=== PATIENT | female | born 1985 | race Caucasian/White ===

== ENCOUNTER 2018-07-29 14:53 | Emergency (ER) | payer MEDICAID, SELFPAY ==
[2018-07-29 14:54] VITALS: BP 132/94; PULSE 92; RESP 22; TEMP 37.1; O2SAT 100; BMI 34.7
--- NOTE | 2018-07-29 15:05 | EKG12_ITS ---
Test Reason : Blood Pressure : / mmHG Vent. Rate : 074 BPM Atrial Rate : 074 BPM P-R Int : 128 ms QRS Dur : 086 ms QT Int : 394 ms P-R-T Axes : 039 056 012 degrees QTc Int : 437 ms Normal sinus rhythm Normal ECG Confirmed by EMIL TIPTON ([id number]), manager editorial LIZ AVILES ([id number]) on 08/03/2018 8:44:51 AM Referred By: MILO Confirmed By:EMIL TIPTON
[2018-07-29 15:31] LABS: Absolute Lymphocyte Count 3.36 X10^3/ul (0.83-4.51); Absolute Neutrophil Count 6.6 X10^3/uL (2.0-7.7); Basophil# 0.04 X10^3/uL; Basophil% 0.4 % (0-1); Eosinophil# 0.22 X10^3/uL; Hematocrit 42.3 % (37-47); Hemoglobin 14.4 g/dl (12.0-15.0); Lymphocyte # 3.36 X10^3/ul (4.0); Lymphocyte % 30.1 % (19-41); Mean Corpuscular Hgb 30.4 pg (27.0-32.0); Mean Corpuscular Volume 89.4 fL (81-99); Mean Platelet Vol. 10.7 fl (6.2-12.0); Monocyte% 8.1 % (0-10); Neutrophil # 6.61 X10^3/uL (2.7-7.7); Platelet Count 246 K/mm3 (150-450); RBC Distribution Width CV 13.6 % (11.6-14.6); Red Blood Count 4.73 M/mm3 (4.2-5.4); White Blood Count 11.2 K/mm3 (4.4-11.0)
[2018-07-29 15:32] LABS: POSITIVE COUNT NO; POSITIVE DIFFERENTIAL NO; POSITIVE MORPHOLOGY NO
[2018-07-29 15:44] LABS: Anion Gap 6 (5-15); BUN 10 mg/dL (7-18); BUN/Creat Ratio 11.1 RATIO (10-20); Calcium,Total 9.1 mg/dL (8.5-10.1); Chloride 106 mmol/L (98-107); EST Glomerular Filtration Rate 77 mL/min (>60); Est Glom Filt Rate - Afr Amer 93 mL/min (>60); Estimated Creatinine Clearance 86.46 ml/min; Glucose 91 mg/dL (74-106); Potassium 3.9 mmol/L (3.5-5.1); Sodium Level 138 mmol/L (136-145)
--- NOTE | 2018-07-29 15:54 | RAD_ITS ---
STUDY: X-RAY CHEST REASON FOR EXAM: Female, 33 years old. Chest pain. TECHNIQUE: Portable chest. COMPARISON: 03/16/2014. FINDINGS: The lungs are clear and expanded. There is no demonstrated pleural abnormality. Normal size heart. Normal mediastinum and tim. Normal visualized pulmonary arteries. Normal visualized aortic arch and descending thoracic aorta. Normal visualized thoracic spine. Normal visualized ribs, clavicles, and shoulders. There is no demonstrated abnormality of the visualized soft tissue structures of the upper abdomen. RAD/Chest 1 View (Portable) IMPRESSION: Normal x-ray examination of the chest. Electronically Signed: Bella Hoyt MD at 16:25 EDT Tel , Service support ,
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
[2018-07-29 16:11] VITALS: O2SAT 100
[2018-07-29 16:14] VITALS: BP 130/76; PULSE 66; RESP 12; O2SAT 100
[2018-07-29 17:09] LABS: D-Dimer Quantitative (DVT/PE) < 0.27 FEU/ug/m (0.27-0.49)
[2018-07-29] MEDS: Aspirin 325 MG Tablet PO (17:24)
[2018-07-29] MEDS: Morphine 4 MG/ML Syringe IV (17:24)
[2018-07-29] MEDS: Ondansetron 4 MG/2 ML Vial IV (17:24)
[2018-07-29 17:54] LABS: Erythrocyte Sedimentation Rate 14 mm/hr (0-20)
--- NOTE | 2018-07-29 18:17 | ED.DEP ---
ED Disposition - Plan for ED Patient: Chief Complaint: Chest Pain Instructions: ED Chest Pain Atypical Unkn Cause Prescriptions: Naproxen [Naprosyn] 500 mg PO BID PRN #20 tablet Referrals: Ty Rocha MD [Primary Care Provider] -
[2018-07-29 18:29] VITALS: BP 122/63; PULSE 76; RESP 15; O2SAT 98
== END 2018-07-29 18:36 | disposition home or self-care (01) ==
PROVIDERS: Emergency Provider Emergency Medicine; Family Provider Internal Medicine; PCP Internal Medicine
DX: R07.89 Other chest pain (principal); R06.00 Dyspnea, unspecified; R11.0 Nausea; R42 Dizziness and giddiness; R00.2 Palpitations; F31.9 Bipolar disorder, unspecified; Z86.718 Personal history of other venous thrombosis and embolism; F17.200 Nicotine dependence, unspecified, uncomplicated
CPT/HCPCS: 71045; 80048; 84484; 85025; 85379; 85652; 93005; 96374; 96375; 99285; A4216; J2405

== ENCOUNTER 2019-04-29 21:49 | Emergency (ER) | payer MEDICAID, SELFPAY ==
[2019-04-29 21:49] VITALS: BP 143/75; PULSE 75; RESP 15; TEMP 36.7; BMI 34.0
--- NOTE | 2019-04-29 22:03 | ED.VISSUMM ---
- ER Visit Summary Date of Service: 04/29/19 Chief Complaint: Abdominal pain History of Present Illness: The patient is a 33 F who presents with abdominal pain. She has had this for a couple of days. She describes cramping and sharp pains in her epigastric and left upper quadrant areas. She states that food makes it worse. She has had nausea without vomiting. No diarrhea or constipation denies any urinary or vaginal symptoms. She has never had any abdominal surgeries in the past. Denies fevers. She took nothing for this at home. Physical Examination: Vital signs reviewed. HEENT exam unremarkable. Heart is regular rate and rhythm without murmurs. Lungs are clear to auscultation. Abdomen is soft with epigastric tenderness to palpation. There is no guarding or rebound tenderness. Extremities reveal no edema. Skin exam normal. Neurologic exam normal. Test Results: Laboratory studies are normal, except for white blood count of 1.5 and AST of 14 Emergency Department Course and Treatment: Patient was given a GI cocktail and feels much better. This is likely gastritis or an ulcer. I will add omeprazole to her medication regimen at home. She will follow-up with her PCP Treatment Plan: [] Disposition: Discharge Impression: Epigastric abdominal pain This note was generated with [employer] dictation software. It may contain incorrect words, spelling, and punctuation that were not noted in review of the chart prior to signing ED Disposition - Plan for ED Patient: Referrals: Ty Rocha MD [Primary Care Provider] -
[2019-04-29] MEDS: Mag Hydrox/Al Hydrox/Simeth 30 ML UDC PO (22:13)
[2019-04-29 22:23] LABS: Absolute Lymphocyte Count 3.63 X10^3/uL (0.83-4.51); Absolute Neutrophil Count 6.6 X10^3/uL (2.0-7.7); Basophil# 0.06 X10^3/uL; Basophil% 0.5 % (0-1); Eosinophil# 0.25 X10^3/uL; Eosinophils% 2.2 % (0-5); Hematocrit 39.8 % (37-47); Hemoglobin 13.6 g/dL (12.0-15.0); Lymphocyte # 3.63 X10^3/ul (4.0); Lymphocyte % 31.6 % (19-41); Mean Corp Hgb Conc 34.2 g/dL (32-36); Mean Corpuscular Hgb 30.6 pg (27.0-32.0); Mean Corpuscular Volume 89.4 fL (81-99); Mean Platelet Vol. 9.8 fl (6.2-12.0); Monocyte# 0.88 X10^3/uL; Monocyte% 7.7 % (0-10); NRBC Flagged by Analyzer 0 % (0-5); Neutrophil # 6.59 X10^3/uL (2.7-7.7); Neutrophil % 57.4 % (47-70); Platelet Count 232 K/mm3 (150-450); RBC Distribution Width CV 13.5 % (11.6-14.6); RBC Distribution Width SD 44.2 fl (35.1-43.9); Red Blood Count 4.45 M/mm3 (4.2-5.4); White Blood Count 11.5 K/mm3 (4.4-11.0)
[2019-04-29 22:39] LABS: ALB/GLOB Ratio 1.1 RATIO (0.9-2.4); AST(SGOT) 14 U/L (15-37); Alanine Aminotransfer ALT/SGPT 23 U/L (13-56); Albumin, Serum 3.3 g/dL (3.2-5.0); Alkaline Phosphatase 96 U/L (45-117); Anion Gap 5 (5-15); BUN 12 mg/dL (7-18); BUN/Creat Ratio 12.2 RATIO (10-20); Calcium,Total 8.8 mg/dL (8.5-10.1); Chloride 107 mmol/L (98-107); Creatinine, Serum 0.98 mg/dL (0.55-1.02); EST Glomerular Filtration Rate 69 mL/min (>60); Est Glom Filt Rate - Afr Amer 84 mL/min (>60); Glucose 99 mg/dL (74-106); Lipase 111 U/L (73-393); Potassium 3.7 mmol/L (3.5-5.1); Protein, Total 6.3 g/dL (6.4-8.2); Sodium Level 139 mmol/L (136-145)
--- NOTE | 2019-04-29 22:53 | ED.DEP ---
ED Disposition - Plan for ED Patient: Disposition: Home or Assisted Living Instructions: Peptic Ulcer Prescriptions: Omeprazole [Prilosec] 20 mg PO DAILY #30 cap Prescription Printed Referrals: Ty Rocha MD [Primary Care Provider] -
[2019-04-29 22:59] VITALS: BP 121/74; PULSE 82; RESP 16; O2SAT 100
--- NOTE | 2019-04-29 22:59 | ED.RN ---
THIS NURSE REVIEWED D/C INSTRUCTIONS WITH PT. PT VERBALIZED UNDERSTANDING OF INSTRUCTIONS. IV D/C. IV CATHETER INTACT. PT TOLERATED WELL. PT DENIES FURTHER NEEDS OR QUESTIONS AT THIS TIME. PT AMBULATES FROM ROOM ON OWN WITHOUT ASSISTANCE FROM STAFF
== END 2019-04-29 23:00 | disposition home or self-care (01) ==
PROVIDERS: Emergency Provider Emergency Medicine; Family Provider Internal Medicine; PCP Internal Medicine
DX: R10.13 Epigastric pain (principal); R11.0 Nausea; Z72.0 Tobacco use
CPT/HCPCS: 80053; 83690; 85025; 99284; A4216

== ENCOUNTER → 2019-08-29 15:48 | Outpatient (CLI) | payer MEDICAID, SELFPAY | PROVIDERS: Visit Provider Obstetrics & Gynecology | DX: Z12.4 Encounter for screening for malignant neoplasm of cervix (principal) ==

== ENCOUNTER → 2020-07-23 10:59 | Outpatient (CLI) | payer MEDICAID, SELFPAY ==
--- NOTE | 2020-07-23 11:05 | RAD_ITS ---
HISTORY: neck pain, cervical radiopathy COMPARISON: None FINDINGS: # of images incl. paperwork: 6 XR Spine Cervical 4 or 5 Views: 3 views of the cervical spine were obtained. All 7 cervical vertebral bodies are identified. No acute cervical spine fracture or subluxation. Normal cervical spine alignment. Odontoid is intact. No significant degenerative change. RAD/Cerv Spine 4 or 5 Views IMPRESSION: No acute cervical spine fracture or subluxation. at 0418 Reported and signed by: Chino Hernandez MD Electronically Signed: Chino Hernandez MD at 4:17 EDT Tel , Service support ,
== END ==
PROVIDERS: Referring Provider Chiropractor; Visit Provider Chiropractor
DX: M54.12 Radiculopathy, cervical region (principal)
CPT/HCPCS: 72050

== ENCOUNTER 2021-06-03 19:14 | Emergency (ER) | payer MEDICAID, SELFPAY ==
[2021-06-03 19:14] VITALS: BP 167/91; PULSE 109; RESP 18; TEMP 36.4; O2SAT 100; BMI 37.5
--- NOTE | 2021-06-03 19:30 | RAD_ITS ---
STUDY: X-RAY CHEST REASON FOR EXAM: Female, 36 years old. SOB TECHNIQUE: Frontal view COMPARISON: None. FINDINGS: The lungs are clear and expanded. There is no demonstrated pleural abnormality. Normal size heart. Normal mediastinum and tim. Normal visualized pulmonary arteries. Normal visualized aortic arch and descending thoracic aorta. Normal visualized thoracic spine. Normal visualized ribs, clavicles, and shoulders. There is no demonstrated abnormality of the visualized soft tissue structures of the upper abdomen. RAD/Chest 1 View IMPRESSION: Normal x-ray examination of the chest. Electronically Signed: Arturo Moran DO at 20:25 EDT Tel [phone], Service support ,
[2021-06-03 21:00] VITALS: BP 128/72; PULSE 81; RESP 14; O2SAT 97; O2SAT 98
--- NOTE | 2021-06-03 21:28 | EKG12_ITS ---
Test Reason : DYSRHYTHMIA Blood Pressure : / mmHG Vent. Rate : 075 BPM Atrial Rate : 075 BPM P-R Int : 132 ms QRS Dur : 084 ms QT Int : 390 ms P-R-T Axes : 034 069 027 degrees QTc Int : 435 ms Normal sinus rhythm Normal ECG Confirmed by HANNAH CHAVEZ, ANGLE ([id number]), story editor YANELI ECHEVARRIA ([id number]) on 06/05/2021 9:49:30 AM Referred By: HALIMA Confirmed By:ANGLE YOUNG MD
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
[2021-06-03 21:47] LABS: Absolute Lymphocyte Count 2.55 X10^3/uL (0.83-4.51); Absolute Neutrophil Count 3.7 X10^3/uL (2.0-7.7); Basophil# 0.04 X10^3/uL; Basophil% 0.6 % (0-1); Eosinophil# 0.12 X10^3/uL; Eosinophils% 1.7 % (0-5); Hematocrit 45.1 % (37-47); Hemoglobin 14.7 g/dL (12.0-15.0); Lymphocyte # 2.55 X10^3/ul (0.83-4.51); Lymphocyte % 36.1 % (19-41); Mean Corp Hgb Conc 32.6 g/dL (32-36); Mean Corpuscular Hgb 29.5 pg (27.0-32.0); Mean Corpuscular Volume 90.4 fL (81-99); Mean Platelet Vol. 9.9 fl (6.2-12.0); Monocyte# 0.61 X10^3/uL; Monocyte% 8.6 % (0-10); NRBC Flagged by Analyzer 0 % (0-5); Neutrophil # 3.72 X10^3/uL (2.7-7.7); Neutrophil % 52.7 % (47-70); Platelet Count 238 K/mm3 (150-450); RBC Distribution Width CV 13.8 % (11.6-14.6); RBC Distribution Width SD 46.2 fl (35.1-43.9); Red Blood Count 4.99 M/mm3 (4.2-5.4); White Blood Count 7.1 K/mm3 (4.4-11.0)
[2021-06-03 21:49] VITALS: O2SAT 97
[2021-06-03 22:05] LABS: AST(SGOT) 18 U/L (15-37); Alanine Aminotransfer ALT/SGPT 25 U/L (13-56); Albumin, Serum 3.5 g/dL (3.2-5.0); Alkaline Phosphatase 88 U/L (45-117); Anion Gap 3 (5-15); BUN 13 mg/dL (7-18); BUN/Creat Ratio 13.7 RATIO (10-20); Calcium,Total 8.7 mg/dL (8.5-10.1); Chloride 109 mmol/L (98-107); Creatinine, Serum 0.95 mg/dL (0.55-1.02); EST Glomerular Filtration Rate 71 mL/min (>60); Est Glom Filt Rate - Afr Amer 86 mL/min (>60); Estimated Creatinine Clearance 79.61 ml/min; Globulin 3.6 g/dL (2.2-4.2); Glucose 105 mg/dL (74-106); Potassium 3.9 mmol/L (3.5-5.1); Protein, Total 7.1 g/dL (6.4-8.2); Sodium Level 139 mmol/L (136-145); Troponin-I HS 7 pg/mL (3.0-54.0)
--- NOTE | 2021-06-03 22:15 | CT_ITS ---
STUDY: CTA CHEST REASON FOR EXAM: Female, 36 years old. Chest pain RADIATION DOSAGE (If Supplied By Facility): CTDIvol = ( 12.66 ) mGy, DLP = ( 551.33 ) mGycm TECHNIQUE: The examination was performed with the intravenous administration of IV 100mL Isovue-300. Post-processing of the angiographic images was performed, with multiplanar reformation and 3D reconstruction. Individualized dose optimization techniques were used for this CT. COMPARISON: None. FINDINGS: Normal enhancement of the main pulmonary artery and right and left pulmonary arteries. Normal enhancement of the bilateral peripheral pulmonary arteries. There is no demonstrated pulmonary embolism. Normal thoracic aorta and visualized great vessels. There is no demonstrated aortic dissection. Normal heart and pericardium. Normal mediastinum. Normal hilar regions. Normal visualized trachea and bronchi. The lungs are well expanded. Normal pulmonary parenchyma. Normal pleura. Normal chest wall structures. Normal osseous structures. Small hiatal hernia. CT/CTA Chest W/WO Contrast IMPRESSION: No demonstrated pulmonary embolism or arterial dissection. Small hiatal hernia Electronically Signed: Arturo Moran DO at 23:41 EDT Tel [phone], Service support ,
[2021-06-03 23:41] VITALS: BP 131/69; PULSE 77; RESP 18; TEMP 36.6; O2SAT 100
[2021-06-03 23:57] VITALS: BP 131/69; PULSE 74; RESP 17; O2SAT 98
== END 2021-06-03 23:58 | disposition home or self-care (01) ==
PROVIDERS: Emergency Provider Student in an Organized Health Care Education/Training Program
DX: U07.1 COVID-19 (principal); R07.89 Other chest pain; F17.210 Nicotine dependence, cigarettes, uncomplicated
CPT/HCPCS: 71045; 71275; 80053; 84484; 85025; 85379; 93005; 99285; Q9967

== ENCOUNTER → 2021-07-15 11:22 | Outpatient (CLI) | payer MEDICAID, SELFPAY ==
[2021-07-15 13:17] LABS: HIV - WCH Non-Reactive (Nonreactive); Hepatitis B Surface Antigen Non-Reactive (Nonreactive); Hepatitis C Antibody Non-Reactive (Nonreactive); Syphilis Antibodies Non-reactive
[2021-07-16 22:07] LABS: Chlamydia By Nucleic Acid AMP Negative (Negative)
[2021-07-17 12:32] LABS: Gonococcus By Nucleic Acid AMP Negative (Negative)
[2021-07-18 16:34] LABS: HPV APTIMA, High Risk Negative (Negative)
== END ==
PROVIDERS: Visit Provider Obstetrics & Gynecology
DX: Z12.4 Encounter for screening for malignant neoplasm of cervix (principal); Z11.3 Encounter for screening for infections with a predominantly sexual mode of transmission
CPT/HCPCS: 36415; 86703; 86780; 86803; 87340; 87491; 87591; 87624; 88175; G0145

== ENCOUNTER 2022-02-22 22:41 | Emergency (ER) | payer MEDICAID, SELFPAY ==
[2022-02-22 22:42] VITALS: BP 127/79; PULSE 79; RESP 14; TEMP 36.3; O2SAT 98; BMI 38.7
--- NOTE | 2022-02-22 23:20 | EX.ED.VIS.EY ---
HPI History of Present Illness Chief Complaint: Eye Problem Informant: patient Onset/Context/Timing Location: Right Eye Onset: Hours (2) Context: Gradual Onset Timing: Continuous Worsened by: Blinking Relieved by: Nothing Associated Symptoms Associated Symptoms - Eyes: Drainage (Watery), Pain and Redness; Negative for Burning, Crusting, Eyelid swelling, Foreign body sensation, Itching, Matting and Photophobia History of injury: No Visual correction: None Narrative Narrative: Patient presents with redness to her right eye that began approximate 2 hours prior to arrival. Patient states her pain is worse with blinking. Patient denies any foreign body sensation. Patient denies any trauma or injury. Patient denies any matting or crusting. Patient denies any purulent discharge or drainage. Patient does not wear glasses or contacts. Patient denies any visual changes. Patient denies any sick contacts. PFSH PFS Medical History Herniated disc Smoker Home Medications NK 06/03/21 [History Last Taken Unknown] Allergy/AdvReac Type Severity Reaction Status Date / Time No Known Allergies Allergy Verified 02/22/22 22:42 Surgical History History of dilatation and curettage History of discectomy Social History Smoking Status: Current every day smoker tobacco type: cigarettes ROS ROS ED Constitutional Constitutional ED: Denies chills or fever(s) Eyes Eyes: Denies blurry vision or change in vision ENT ENT ED: Denies rhinorrhea or sore throat Cardiovascular Cardiovascular: Denies chest pain or palpitations Respiratory/Chest Respiratory/Chest: Denies cough or dyspnea Gastrointestinal Gastrointestinal: Denies nausea or vomiting Genitourinary Genitourinary ED: Denies dysuria or hematuria Musculoskeletal Musculoskeletal: Denies back pain or neck pain Integumentary Denies abscess or rash Neurologic Neurologic: Denies headache(s) or weakness Allergic/Immunologic Allergic/Immunologic ED: Denies mouth swelling or urticaria EXAM Physical Exam Const Vital Signs: 02/22/22 22:42 Temperature 97.4 F L Temperature Source Temporal Pulse Rate 79 Respiratory Rate 14 Blood Pressure 127/79 H Blood Pressure Mean 95 Pulse Ox 98 Oxygen Delivery Method Room Air Positive well nourished, well developed and obese General Appearance ED: well developed and NAD Nutritional Appearance: obese HEENT atraumatic Eyes Alignment: alignment normal Periorbital: periorbital findings normal Eyelid: eyelids normal Conjunctiva: conjunctiva abnormal right injection diffuse (Mild) Sclera: sclera normal Cornea: cornea normal Pupil: PERRL and accommodation reflex normal EOM: Negative for EOM abnormal Neck supple and no JVD Neuro oriented x3, CN's II-XII intact bilaterally, moves all extremities and no sensory deficits noted Sensorium / Orientation: alert Motor Exam: strength 5/5 throughout MDM MDM MDM Narrative Medical decision making narrative: Patient does appear to have conjunctivitis. Patient was given ciprofloxacin ophthalmic drops. Patient was instructed to apply 2 drops in the right eye every 2 hours while awake. Patient was instructed to follow-up with her primary care physician in 3 to 5 days. Patient understood and was agreeable with the plan. All questions were answered. Discharge Plan Triage Chief Complaint: Eye Problem ED Provider: Wan Jung Dx/Rx/DC Orders Clinical Impression: Acute conjunctivitis, right eye Instructions: ED Conjunctivitis, Nonspecific Prescriptions: No Action NK RF: 0 Primary Care Provider: Care Physician,No Primary Referrals: Mehran Guerra MD [STAFF PHYSICIAN] - 3-5 Days Care Physician,No Primary [Primary Care Provider] - Disposition Disposition: Home, Self Care
[2022-02-22] MEDS: Ciprofloxacin 0.3% 2.5ml Bottle 1 DRP RIGHT EYE (23:51)
== END 2022-02-22 23:53 | disposition home or self-care (01) ==
PROVIDERS: Emergency Provider Emergency Medicine; Visit Provider Emergency Medicine
DX: H10.31 Unspecified acute conjunctivitis, right eye (principal); F17.210 Nicotine dependence, cigarettes, uncomplicated; E66.9 Obesity, unspecified; Z68.38 Body mass index [BMI] 38.0-38.9, adult
CPT/HCPCS: 99282

== ENCOUNTER 2022-05-05 19:04 | Emergency (ER) | payer MEDICAID, SELFPAY ==
[2022-05-05 19:05] VITALS: BP 183/168; PULSE 86; RESP 16; TEMP 36.6; O2SAT 97; BMI 38.0
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
[2022-05-05 20:37] LABS: Absolute Lymphocyte Count 4.01 X10^3/uL (0.83-4.51); Absolute Neutrophil Count 9.3 X10^3/uL (2.0-7.7); Basophil# 0.09 X10^3/uL; Basophil% 0.6 % (0-1); Eosinophil# 0.17 X10^3/uL; Eosinophils% 1.2 % (0-5); Hematocrit 42.1 % (37-47); Hemoglobin 14.1 g/dL (12.0-15.0); Lymphocyte # 4.01 X10^3/ul (0.83-4.51); Lymphocyte % 27.2 % (19-41); Mean Corp Hgb Conc 33.5 g/dL (32-36); Mean Corpuscular Hgb 29.6 pg (27.0-32.0); Mean Corpuscular Volume 88.4 fL (81-99); Mean Platelet Vol. 10.1 fl (6.2-12.0); Monocyte# 1.05 X10^3/uL; Monocyte% 7.1 % (0-10); NRBC Flagged by Analyzer 0 % (0-5); Neutrophil # 9.33 X10^3/uL (2.7-7.7); Neutrophil % 63.4 % (47-70); Platelet Count 277 K/mm3 (150-450); RBC Distribution Width CV 14.6 % (11.6-14.6); RBC Distribution Width SD 46.5 fl (35.1-43.9); Red Blood Count 4.76 M/mm3 (4.2-5.4); White Blood Count 14.7 K/mm3 (4.4-11.0)
[2022-05-05 20:50] LABS: Anion Gap 5 (5-15); BUN 13 mg/dL (7-18); BUN/Creat Ratio 12.4 RATIO (10-20); Chloride 112 mmol/L (98-107); Creatinine, Serum 1.05 mg/dL (0.55-1.02); EST Glomerular Filtration Rate 63 mL/min (>60); Est Glom Filt Rate - Afr Amer 76 mL/min (>60); Estimated Creatinine Clearance 72.03 ml/min; Glucose 100 mg/dL (74-106); Sodium Level 140 mmol/L (136-145)
[2022-05-05 21:27] LABS: Internal QC Validated? YES +Cl - CLEAR BKGD; Pregnancy, Serum, hCG Quali. NEGATIVE Negative
[2022-05-05] MEDS: Meclizine HCl 25 MG Tablet PO (22:12)
[2022-05-05 22:13] VITALS: BP 140/83; PULSE 101; RESP 22; O2SAT 97
== END 2022-05-05 22:17 | disposition home or self-care (01) ==
PROVIDERS: Emergency Provider Emergency Medicine; PCP Internal Medicine; Visit Provider Emergency Medicine
DX: S06.0X9A Concussion with loss of consciousness of unspecified duration, initial encounter (principal); F17.210 Nicotine dependence, cigarettes, uncomplicated; E66.9 Obesity, unspecified; T71.193A Asphyxiation due to mechanical threat to breathing due to other causes, assault, initial encounter; Y04.0XXA Assault by unarmed brawl or fight, initial encounter; Z68.38 Body mass index [BMI] 38.0-38.9, adult
CPT/HCPCS: 70496; 70498; 80048; 84703; 85025; 99284; Q9967; A4216

== ENCOUNTER 2022-08-28 17:45 | Emergency (ER) | payer MEDICAID, SELFPAY ==
[2022-08-28 17:46] VITALS: BP 160/92; PULSE 91; RESP 15; TEMP 36.4; O2SAT 97; BMI 39.1
--- NOTE | 2022-08-28 18:08 | ED.VIS.DENTA ---
HPI History of Present Illness Chief Complaint: Dental Narrative Narrative: . [id number] female, smoker, presents with 3 weeks of left lower jaw dental pain patient been on clindamycin. She went and saw her dentist but she was in the patient so they would not give her antibiotics. She has a follow-up appointment on September 08. She went to urgent care where she was placed on clindamycin and has been taking it for 3 weeks. She also takes naproxen. She states that she is having continued dental pain. She continues to smoke cigarettes. She denies any fevers or chills. She feels her jaw swollen and painful. Its mainly her left lower jaw. PFSH PFSH Medical History Herniated disc Smoker Home Medications meclizine 25 mg chewable tablet (Antivert) 25 mg PO TID #14 tabs 05/05/22 [Rx Last Taken Unknown] penicillin V potassium 500 mg tablet 500 mg PO 4X/DAY #40 tabs 08/28/22 [Rx Last Taken Unknown] Allergy/AdvReac Type Severity Reaction Status Date / Time No Known Allergies Allergy Verified 08/28/22 17:48 Surgical History History of dilatation and curettage History of discectomy Social History household members: none Smoking Status: Current every day smoker tobacco type: cigarettes substance use type: does not use ROS ROS ED ROS Narrative Constitutional: No fever, no chills. HEENT: No sore throat. No neck pain. No loss of vision. No rhinorrhea. Positive left lower jaw pain secondary to dental pain. Cardiovascular: No chest pain. No palpitations. No pedal edema. Respiratory: No cough, no shortness of breath. Abdominal: No abdominal pain. No nausea. No vomiting. Genitourinary: No dysuria. No hematuria. Musculoskeletal: No myalgias. No arthralgias. Neurologic: No headaches. No dizziness. No lightheadedness. Skin: No rash. No change in color. Psychiatric: No depression. No anxiety. EXAM Physical Exam Narrative Exam Narrative: Afebrile. Vital signs noted. HEENT: Normocephalic. Atraumatic. PERRL, EOMI. Neck soft and supple. No point tenderness or step off. No tenderness to percussion of tooth and left lower jaw. No Joesph angina. Airway patent. No drooling or trismus. No noted erythema or appreciable swelling of left lower jaw. Cardiovascular: Regular rate and rhythm. No murmurs, rubs, or gallops appreciated. Respiratory: No tachypnea. Lungs clear to auscultation bilaterally. Gastrointestinal: Abdomen soft, nontender, with normoactive bowel sounds. No rebound or guarding. Neurological: Awake. Alert. Nonfocal, nonlateralizing. Skin: No rash. Normal color. No pallor. Musculoskeletal: No pedal edema. Full range of motion extremities. Const Vital Signs: 08/28/22 17:46 Temperature 97.6 F L Temperature Source Temporal Pulse Rate 91 Respiratory Rate 15 Blood Pressure 160/92 H Blood Pressure Mean 114 Pulse Ox 97 Oxygen Delivery Method Room Air MDM MDM MDM Narrative Medical decision making narrative: I had a lengthy discussion with the patient. Smoking cessation was discussed. There is not significant different treatment that I could offer her besides continue her antibiotics. We will change her clindamycin to penicillin V. She was given her first dose here in the emergency department as today is thanksgiving. She will curing pickling packer the prescription tomorrow. She is already on a waiting list at her dentist office. I do feel that she can continue her naproxen and that the cessation of smoking will help with her pain. Disposition is discharged home in stable condition. Discharge Plan Triage Chief Complaint: Dental ED Provider: Kofi Archibald Dx/Rx/DC Orders Clinical Impression: Pain, dental, Jaw pain, non-TMJ Instructions: ED Dental Pain Prescriptions: New penicillin V potassium 500 mg tablet 500 mg PO 4X/DAY Qty: 40 0RF No Action meclizine [Antivert] 25 mg tablet,chewable 25 mg PO TID Qty: 14 0RF Primary Care Provider: Ty Rocha Referrals: Ty oRcha MD [Primary Care Provider] - Activity Restrictions/Additional Instructions: Follow-up with your dentist as scheduled on September 08 or sooner if possible. Stop smoking. Change her antibiotic from clindamycin to penicillin. Disposition Disposition: Home, Self Care
[2022-08-28] MEDS: Penicillin Vk 250 MG Tablet 500 MG PO (18:12)
== END 2022-08-28 18:21 | disposition home or self-care (01) ==
PROVIDERS: Emergency Provider Emergency Medicine; PCP Internal Medicine; Visit Provider Emergency Medicine
DX: K08.89 Other specified disorders of teeth and supporting structures (principal); F17.210 Nicotine dependence, cigarettes, uncomplicated; R68.84 Jaw pain
CPT/HCPCS: 99283

== ENCOUNTER → 2023-02-23 | Outpatient (CLI) | payer MEDICAID, SELFPAY ==
[2023-02-23 12:38] LABS: Absolute Lymphocyte Count 3.25 X10^3/uL (0.83-4.51); Absolute Neutrophil Count 7.5 X10^3/uL (2.0-7.7); Basophil# 0.08 X10^3/uL; Basophil% 0.7 % (0-1); Eosinophil# 0.25 X10^3/uL; Eosinophils% 2.1 % (0-5); Hematocrit 42.9 % (37-47); Hemoglobin 14.7 g/dL (12.0-15.0); Lymphocyte # 3.25 X10^3/ul (0.83-4.51); Lymphocyte % 26.9 % (19-41); Mean Corp Hgb Conc 34.3 g/dL (32-36); Mean Corpuscular Hgb 30.4 pg (27.0-32.0); Mean Corpuscular Volume 88.6 fL (81-99); Mean Platelet Vol. 9.8 fl (6.2-12.0); Monocyte% 7.5 % (0-10); NRBC Flagged by Analyzer 0 % (0-5); Neutrophil # 7.53 X10^3/uL (2.7-7.7); Neutrophil % 62.2 % (47-70); Platelet Count 279 K/mm3 (150-450); RBC Distribution Width CV 14.3 % (11.6-14.6); RBC Distribution Width SD 45.6 fl (35.1-43.9); Red Blood Count 4.84 M/mm3 (4.2-5.4); White Blood Count 12.1 K/mm3 (4.4-11.0)
[2023-02-23 13:07] LABS: AST(SGOT) 16 U/L (15-37); Alanine Aminotransfer ALT/SGPT 24 U/L (13-56); Albumin, Serum 3.6 g/dL (3.2-5.0); Alkaline Phosphatase 103 U/L (45-117); Anion Gap 7 (5-15); BUN 15 mg/dL (7-18); BUN/Creat Ratio 16.6 RATIO (10-20); Chloride 107 mmol/L (98-107); EST Glomerular Filtration Rate 74 mL/min (>60); Est Glom Filt Rate - Afr Amer 90 mL/min (>60); Globulin 3.5 g/dL (2.2-4.2); Glucose 98 mg/dL (74-106); Potassium 4.1 mmol/L (3.5-5.1); Protein, Total 7.1 g/dL (6.4-8.2); Sodium Level 138 mmol/L (136-145)
[2023-02-23 13:41] LABS: Hepatitis B Surface Antibody Non-Reactive; Hepatitis B Surface Antigen Non-Reactive (Nonreactive); Hepatitis C Antibody Non-Reactive (Nonreactive)
[2023-02-25 13:08] LABS: Hepatitis B Core Ab Total Negative (Negative); QNTFERON TB Mitogen Value > 10.00 IU/mL (.); QNTFERON TB Nil Value 0.01 IU/mL (.); QNTFERON TB1+ Ag Value 0.02 IU/mL (.); QNTFERON TB2+ Ag Value 0.03 IU/mL (.); QNTIFERON TB Positive Criteria Negative (Negative)
== END | disposition home or self-care (01) ==
LOC: LAB 12:09
PROVIDERS: PCP Internal Medicine; Referring Provider Physician Assistant; Visit Provider Physician Assistant
DX: Z79.620 Long term (current) use of immunosuppressive biologic (principal)
CPT/HCPCS: 36415; 80053; 85025; 86480; 86704; 86706; 86803; 87340

== ENCOUNTER 2023-04-25 14:01 | Emergency (ER) | payer MEDICAID, SELFPAY ==
[2023-04-25 14:03] VITALS: BP 154/86; PULSE 99; TEMP 36.8; O2SAT 100
[2023-04-25 14:06] VITALS: BMI 39.2
--- NOTE | 2023-04-25 14:21 | EDS_ITS ---
HPI <ALEXIS Olsen - Last Filed: 04/25/23 17:19> History of Present Illness Chief Complaint: Upper Extremity Injury Narrative Narrative: Patient presenting today due to pain in her neck that radiates pain and tingling down the left arm and into her fingers. She reports that this started 2 days ago after she went down a water slide with her arms behind her head. She did not think that she injured herself but after getting off off the slide she noti yovani pain in her left arm that has been worsening. She feels like her left arm is weak in comparison to the right. She denies any other injury. PFSH <ALEXIS Olsen - Last Filed: 04/25/23 17:19> PFSH Medical History Herniated disc Smoker Home Medications meclizine 25 mg chewable tablet (Antivert) 25 mg PO TID #14 tabs 05/05/22 [Rx Last Taken Unknown] penicillin V potassium 500 mg tablet 500 mg PO 4X/DAY #40 tabs 08/28/22 [Rx Last Taken Unknown] hydrocodone-acetaminophen 5-325mg 5mg-325mg 1 tab PO Q4H PRN PRN Pain 3 days #10 TABLETS 04/25/23 [Rx Last Taken Unknown] Allergy/AdvReac Type Severity Reaction Status Date / Time No Known Allergies Allergy Verified 04/25/23 14:03 Surgical History History of dilatation and curettage History of discectomy Social History household members: none Smoking Status: Current every day smoker tobacco type: cigarettes substance use type: does not use ROS <ALEXIS Olsen - Last Filed: 04/25/23 17:19> ROS ED Constitutional Constitutional ED: Denies chills or fever(s) Cardiovascular Cardiovascular: Denies chest pain Respiratory/Chest Respiratory/Chest: Denies cough or dyspnea Gastrointestinal Gastrointestinal: Denies abdominal pain, nausea or vomiting Musculoskeletal Musculoskeletal: Reports arthralgias, myalgias and neck pain; Denies back pain Integumentary Denies Abrasions or rash Neurologic Neurologic: Reports paresthesias and weakness EXAM <ALEXIS Olsen - Last Filed: 04/25/23 17:19> Physical Exam Const Vital Signs: 04/25/23 14:03 Temperature 98.2 F Temperature Source Temporal Pulse Rate 99 Blood Pressure 154/86 H Blood Pressure Mean 108 Pulse Ox 100 Oxygen Delivery Method Room Air Positive well nourished, well developed and no apparent distress General Appearance ED: well developed HEENT Reports normocephalic and head/scalp atraumatic Mouth ED: Yes moist mucous membranes normal Eyes PERRL and EOMs intact bilaterally Neck full ROM and supple Neck Narrative: No cervical tenderness to palpation. Chest Wall inspection of chest normal Resp normal respiratory effort and clear to auscultation bilaterally Cardio regular rate and regular rhythm GI soft to palpation, non-tender, non-distended and no masses Back/Spine normal ROM and normal to inspection Extremity normal to inspection Extremity Narrative: Decreased range of motion to the left shoulder due to pain, pain to palpation to the left shoulder. Radial pulses 2+ and equal bilaterally, good capillary refill, sensation intact. Full range of motion in the left wrist and fingers. Neuro oriented x3, CN's II-XII intact bilaterally, moves all extremities, no focal motor deficits and no sensory deficits noted Sensorium / Orientation: awake and alert Psych mental status grossly normal and thought process normal Skin no rashes or lesions noted and no wounds [facility] <ALEXIS Olsen - Last Filed: 04/25/23 17:19> [facility] Narrative Medical decision making narrative: Patient presenting due to pain in her neck that radiates down the left arm into her fingers. This all started after she went down a water slide with her arms behind her head and when she got off she felt immediate pain in her left arm. She does not have any midline cervical tenderness to palpation, she does have pain with range of motion of the left shoulder and with pain to palpation to the left shoulder, x-ray of the neck and shoulder will be obtained to rule out fracture/dislocation and shoulder x-ray shows calcific tendinitis. She was given pain control here and a short course of [place] for home. She has been given a orthopedic referral for follow-up. She will be discharged home in stable condition and is comfortable with plan. <Dr. Elliott Quintero DO - Last Filed: 04/26/23 08:01> [facility] Narrative Medical decision making narrative: Patient presenting due to pain in her neck that radiates down the left arm into her fingers. This all started after she went down a water slide with her arms behind her head and when she got off she felt immediate pain in her left arm. She does not have any midline cervical tenderness to palpation, she does have pain with range of motion of the left shoulder and with pain to palpation to the left shoulder, x-ray of the neck and shoulder will be obtained to rule out fracture/dislocation and shoulder x-ray shows calcific tendinitis. She was given pain control here and a short course of [place] for home. She has been given a orthopedic referral for follow-up. She will be discharged home in stable condition and is comfortable with plan. This patient was seen with a PA/PEANUT SHELLER Individually assessed they patient including history and physical. I have reviewed everything on the chart that is available and agree with the documentation provided by the PA/PEANUT SHELLER including discussion about the assessment, treatment plan, discussion, and return precautions. Patient presenting with cervical radiculopathy. This occurred after she was on a slide with her hands behind her head. She has radiation of the pain down the medial aspect of her arm and hand. X-rays of the cervical spine and shoulder were obtained which are negative for acute findings on my interpretation however she does have what looks like a calcific tendinitis. Patient was given [place] for pain because she states the muscle lectures are helping and she is given follow-up with orthopedics. Discharge Plan Triage Chief Complaint: Upper Extremity Injury ED Midlevel Provider: Rohini Driver ED Provider: Elliott Quintero Dx/Rx/DC Orders Clinical Impression: Cervical radicular pain, Calcific tendonitis of left shoulder Instructions: ED Radiculopathy, Cervical Prescriptions: New hydrocodone-acetaminophen 5-325 mg tablet 1 tab PO Q4H PRN PRN (Reason: Pain) 3 Days Qty: 10 0RF No Action meclizine [Antivert] 25 mg tablet,chewable 25 mg PO TID Qty: 14 0RF penicillin V potassium 500 mg tablet 500 mg PO 4X/DAY Qty: 40 0RF Primary Care Provider: Ty Rocha Referrals: Rah Gonzalez DO [Med Staff - Active Staff] - 3-5 Days Ty Rocha MD [Primary Care Provider] - Activity Restrictions/Additional Instructions: Please follow-up with the orthopedic doctor and return for any worsening of your symptoms. Disposition Disposition: Home, Self Care Discharge Date/Time: 04/25/23 15:54
--- NOTE | 2023-04-25 14:28 | RAD_ITS ---
EXAM: XR CERVICAL SPINE, 4 OR 5 VIEWS CLINICAL INDICATION: pain TECHNIQUE: Frontal, lateral and bilateral oblique views of the cervical spine. COMPARISON: No relevant prior studies available. FINDINGS: VERTEBRAE: Unremarkable. Preserved vertebral body height. No acute fracture. No spondylolisthesis. Preservation of the normal cervical lordosis. No significant facet arthropathy. DISC SPACES: Unremarkable. Disc spaces are maintained. SOFT TISSUES: Unremarkable. No prevertebral soft tissue widening. LUNG APICES: Clear. RAD/Cerv Spine 4 or 5 Views IMPRESSION: No evidence of acute fracture or spondylolisthesis. Electronically Signed: Ayo Ramirez MD at 15:18 EDT ,
--- NOTE | 2023-04-25 15:05 | RAD_ITS ---
STUDY: XR Shoulder Min 2 Views REASON FOR EXAM: Female, 37 years old. pain TECHNIQUE: XR Shoulder Min 2 Views LEFT COMPARISON: None. FINDINGS: Normal glenohumeral articulation. Normal acromioclavicular joint. Normal acromion. Normal humeral head and visualized proximal humerus. There is periarticular soft tissue calcification consistent with a calcific tendinitis. Normal visualized pulmonary apex. RAD/Shoulder min 2 Views IMPRESSION: There is periarticular soft tissue calcification consistent with a calcific tendinitis. Electronically Signed: Ayo Ramirez MD at 15:19 EDT ,
[2023-04-25] MEDS: HYDROcodone Bitartrate/Apap 5/325 Tablet PO (15:52)
[2023-04-25 15:53] VITALS: PULSE 87; RESP 16; O2SAT 98
== END 2023-04-25 15:54 | disposition home or self-care (01) ==
PROVIDERS: Emergency Provider Student in an Organized Health Care Education/Training Program; PCP Internal Medicine; Visit Provider Student in an Organized Health Care Education/Training Program
DX: M75.32 Calcific tendinitis of left shoulder (principal); M54.12 Radiculopathy, cervical region; F17.210 Nicotine dependence, cigarettes, uncomplicated; X58.XXXA Exposure to other specified factors, initial encounter; Y93.18 Activity, surfing, windsurfing and boogie boarding
CPT/HCPCS: 72050; 73030; 99283

== ENCOUNTER → 2024-03-17 | Day surgery (SDC) | payer MEDICAID, SELFPAY ==
--- NOTE | 2023-10-27 10:53 | PCM.HP.BLA ---
History and Physical Date of Admission: 11/05/23 HPI: The patient is a 38 year old female presenting for pre-operative visit. She is scheduled for hsyteroscoy D&C with Liletta IUD insertion, for mentromenrrhagia on 11/05/23. Procedure discussed along with risks, benefits and complications. Other alternatives discussed for management. Consent form signed? Yes. ? ? PAST MEDICAL HISTORY PAST MEDICAL HISTORY Diagnosis Date ? Abnormal glandular Papanicolaou smear of cervix 2003 ? Abn. Pap smear (cervix),ASCUS ? Benign paroxysmal positional vertigo 11/08/2015 ? Dysthymic disorder 2003 ? Depression (non-psychotic) ? Generalized anxiety disorder 2003 ? Anxiety, Generalized ? Hidradenitis suppurativa 09/21/2020 ? ? PAST SURGICAL HISTORY PAST SURGICAL HISTORY Procedure Laterality Date ? DILATION & CURETTAGE DX&/THER NONOBSTETRIC ? 05/29/04 ? Dilation & curettage ? PAST SURGICAL HISTORY OF ? 2011 ? lumbar surgery, HNP ? ? ? CURRENT MEDICATIONS Current Outpatient Medications Medication Sig Dispense Refill ? tranexamic acid (LYSTEDA) 650 mg tablet Take 2 tablets by mouth three times a day as needed (heavy menstrual bleeding) for up to 5 days. 30 tablet 0 ? naproxen (NAPROSYN) 500 mg tablet Take 1 tablet by mouth two times a day as needed for pain (pain/inflammation, take with food.). 30 tablet 2 ? cyclobenzaprine (FLEXERIL) 10 mg tablet Take 1 tablet by mouth at bedtime as needed for muscle spasm or pain. 30 tablet 0 ? adalimumab (HUMIRA,CF, PEN) 80 mg/0.8 mL pen kit Inject 80 mg subcutaneously every 2 weeks. Per [facility]. ? ? ? No current facility-administered medications for this visit. ? ? ALLERGIES: Seasonal Allergies ? PERSONAL HISTORY: SOCIAL HISTORY Social History ? Tobacco Use ? Smoking status: Every Day ? ? Packs/day: 0.50 ? ? Years: 18.00 ? ? Additional pack years: 0.00 ? ? Total pack years: 9.00 ? ? Types: Cigarettes ? Smokeless tobacco: Never Vaping Use ? Vaping Use: Never used Substance Use Topics ? Alcohol use: Yes ? ? Comment: social ? Drug use: Not Currently ? ? Comment: used to smoke marijuana ? FAMILY HISTORY: FAMILY HISTORY FAMILY HISTORY Problem Relation Age of Onset ? Heart Mother ? ? Hypertension Maternal Grandmother ? ? Heart Maternal Grandfather ? ? Hypertension Maternal Grandfather ? ? other (CVA) Maternal Grandfather ? ? Breast Cancer Maternal Aunt 50 ? Breast Cancer Maternal Aunt 50 ? Ovarian cancer Maternal Aunt 30 ? ? REVIEW OF SYMPTOMS: GENERAL: denies fevers or chills ENDOCRINOLOGY: has not been on steroids Cardiology : denies palpitations or chest pain Respiratory: denies SOB or cough Hematology: denies history of prolonged bleeding or easy bruising or VTE Allergy: Denies history of personal or family history of allergy to anesthesia ? PHYSICAL EXAMINATION: ? VITALS: Last menstrual period 05/06/2023. ? GENERAL: The patient is well nourished, well hydrated in no acute distress. , The patient is oriented to time, place, and person. NECK: Supple. No lynphadenopathy, normal thyroid, no thyromegaly. LUNGS: Clear to auscultation bilaterally. no wheezes, rhonchi or rales HEART: Regular rate and rhythm, Normal heart sounds, and No murmurs or gallops ? EMB 08/06/23 proliferative endometrium w/ breakdown Pelvic US 10/08/23 Uterus: -Size: 10.1 x 4.7 x 6.1 cm -Orientation: Anteverted -Endometrial echo complex: Evaluation of the endometrium was adequate. Mildly heterogeneous appearance without a discrete lesion. The endometrial echo complex measured 1.5 cm. -Cervix: Stable 1.5 cm nabothian cyst, probably with some internal debris. -Adenomyosis assessment: There are no sonographic findings of adenomyosis. -Fibroids: There are no fibroids. Right Ovary: 3.6 x 1.6 x 2.6 cm ?- Normal sonographic appearance. ?Prior hydrosalpinx has resolved. Left Ovary: cm ?- Normal sonographic appearance with physiologic follicles. ? ? IMPRESSION: metromenorrhagia/AUB ? PLAN: The risks/benefits/alternatives and personal involved for the planned hsyteroscopy D&C with Liletta IUD insertion were reviewed with the patient. Her questions were answered to her satisfaction and she desires to proceed. Consent was signed. I reviewed with her postop instructions and expectations. ? ? I have reviewed and updated past medical and surgical history, medications and allergies Assessment & Plan Assessment/Plan (1) Abnormal uterine bleeding (AUB):
== END | disposition home or self-care (01) ==
LOC: PAT 10:14
PROVIDERS: PCP Internal Medicine; Visit Provider Obstetrics & Gynecology
DX: N93.9 Abnormal uterine and vaginal bleeding, unspecified (principal); Z30.430 Encounter for insertion of intrauterine contraceptive device; Z53.9 Procedure and treatment not carried out, unspecified reason; F41.1 Generalized anxiety disorder; F34.1 Dysthymic disorder; F17.210 Nicotine dependence, cigarettes, uncomplicated

== ENCOUNTER 2024-04-29 05:58 | Day surgery (SDC) | payer MEDICAID, SELFPAY ==
--- NOTE | 2024-04-25 14:33 | PCM.HP.BLA ---
History and Physical Date of Admission: 04/29/24 HPI: The patient is a 38 year old female presenting for pre-operative visit. She is scheduled for Hysteroscopy D&C with IUD insertion, for menorrhagia/aub on 04/29/24. Procedure discussed along with risks, benefits and complications. Other alternatives discussed for management. Consent form signed? Yes. PAST MEDICAL HISTORY PAST MEDICAL HISTORY Diagnosis Date ? Abnormal glandular Papanicolaou smear of cervix 2003 Abn. Pap smear (cervix),ASCUS ? Benign paroxysmal positional vertigo 11/08/2015 ? Blood clot in vein in leg- from getting hit repeated times ? Dysthymic disorder 2003 Depression (non-psychotic) ? Generalized anxiety disorder 2003 Anxiety, Generalized ? Hidradenitis suppurativa 09/21/2020 PAST SURGICAL HISTORY PAST SURGICAL HISTORY Procedure Laterality Date ? DILATION & CURETTAGE DX&/THER NONOBSTETRIC 05/29/04 Dilation & curettage ? PAST SURGICAL HISTORY OF 2011 lumbar surgery, HNP CURRENT MEDICATIONS Current Outpatient Medications Medication Sig Dispense Refill ? tranexamic acid (LYSTEDA) 650 mg tablet Take 2 tablets by mouth three times a day as needed (heavy menstrual bleeding) for up to 5 days. 30 tablet 0 ? naproxen (NAPROSYN) 500 mg tablet Take 1 tablet by mouth two times a day as needed for pain (pain/inflammation, take with food.). 30 tablet 2 ? cyclobenzaprine (FLEXERIL) 10 mg tablet Take 1 tablet by mouth at bedtime as needed for muscle spasm or pain. 30 tablet 0 ? adalimumab (HUMIRA,CF, PEN) 80 mg/0.8 mL pen kit Inject 80 mg subcutaneously every 2 weeks. Per [facility]. No current facility-administered medications for this visit. ALLERGIES: Seasonal Allergies PERSONAL HISTORY: SOCIAL HISTORY Social History Tobacco Use ? Smoking status: Every Day Packs/day: 0.50 Years: 18.00 Additional pack years: 0.00 Total pack years: 9.00 Types: Cigarettes ? Smokeless tobacco: Never Vaping Use ? Vaping Use: Never used Substance Use Topics ? Alcohol use: Yes Comment: social ? Drug use: Not Currently Comment: used to smoke marijuana FAMILY HISTORY: FAMILY HISTORY FAMILY HISTORY Problem Relation Age of Onset ? Heart Mother ? Hypertension Maternal Grandmother ? Heart Maternal Grandfather ? Hypertension Maternal Grandfather ? other (CVA) Maternal Grandfather ? Breast Cancer Maternal Aunt 50 ? Breast Cancer Maternal Aunt 50 ? Ovarian cancer Maternal Aunt 30 REVIEW OF SYMPTOMS: GENERAL: denies fevers or chills ENDOCRINOLOGY: has not been on steroids Cardiology : denies palpitations or chest pain Respiratory: denies SOB or cough Hematology: denies history of prolonged bleeding or easy bruising or VTE Allergy: Denies history of personal or family history of allergy to anesthesia PHYSICAL EXAMINATION: VITALS: Blood pressure 116/82, pulse 78, height 170.8 cm (5' 7.25), weight 115.2 kg (254 lb), last menstrual period 03/09/2024, SpO2 98%. GENERAL: The patient is well nourished, well hydrated in no acute distress. , The patient is oriented to time, place, and person. NECK: Supple. No lynphadenopathy, normal thyroid, no thyromegaly. LUNGS: Clear to auscultation bilaterally. no wheezes, rhonchi or rales HEART: Regular rate and rhythm, Normal heart sounds, and No murmurs or gallops EMB proliferative endometrium w/ stromal breakdown Pap neg w/ +HRHPV other on 07/06/23 PELVIC US 10/08/23: * * *Final Report* * * DATE OF EXAM: Oct 08 2023 9:57AM WRU [id number] - US FEMALE PELVIS TRANSVAG / PROCEDURE REASON: multiple diagnoses * * * * Physician Interpretation * * * * EXAMINATION: TRANSVAGINAL AND LIMITED TRANSABDOMINAL FEMALE PELVIC ULTRASOUND CLINICAL HISTORY: Irregular intermenstrual bleeding. Acute pelvic inflammatory disease. TECHNIQUE: Sonography of the pelvis was performed by transvaginal and transabdominal (limited) techniques. Images were obtained and stored in a permanent archive. MQ: [id number] COMPARISON: Pelvic ultrasound, 06/26/2023. RESULT: Uterus: -Size: 10.1 x 4.7 x 6.1 cm -Orientation: Anteverted -Endometrial echo complex: Evaluation of the endometrium was adequate. Mildly heterogeneous appearance without a discrete lesion. The endometrial echo complex measured 1.5 cm. -Cervix: Stable 1.5 cm nabothian cyst, probably with some internal debris. -Adenomyosis assessment: There are no sonographic findings of adenomyosis. -Fibroids: There are no fibroids. Right Ovary: 3.6 x 1.6 x 2.6 cm - Normal sonographic appearance. Prior hydrosalpinx has resolved. Left Ovary: cm - Normal sonographic appearance with physiologic follicles. Free Fluid: No abnormal free fluid is present. IMPRESSION: aub/menorrhagia PLAN: The risks/benefits/alternatives and personal involved for the planned hysteroscopy D&C with polyp resection and IUD insertion were reviewed with the patient. Her questions were answered to her satisfaction and she desires to proceed. Consent was signed. I reviewed with her postop instructions and expectations. I have reviewed and updated past medical and surgical history, medications and allergies Assessment & Plan Assessment/Plan (1) Menorrhagia: (2) Encounter for IUD insertion: (3) Abnormal uterine bleeding (AUB):
[2024-04-29] VITALS (9 sets, daily range): BP systolic 98–122; BP diastolic 48–71; PULSE 68–83; RESP 16; TEMP 36.1–37; O2SAT 97–99; BMI 41.3
[2024-04-29] MEDS: Doxycycline 100 MG CAPSULE PO (06:32)
[2024-04-29] MEDS: Acetaminophen 500 MG Tablet 1000 MG PO (06:32)
[2024-04-29] MEDS: Ketorolac 30 MG/ML Syringe IV (06:32)
[2024-04-29 06:39] LABS: Hematocrit 40.6 % (37-47); Hemoglobin 13.5 g/dL (12.0-15.0); Mean Corp Hgb Conc 33.3 g/dL (32-36); Mean Corpuscular Hgb 29.6 pg (27.0-32.0); Mean Platelet Vol. 9.8 fl (6.2-12.0); Platelet Count 278 K/mm3 (150-450); RBC Distribution Width CV 14.8 % (11.6-14.6); Red Blood Count 4.56 M/mm3 (4.2-5.4); White Blood Count 9.5 K/mm3 (4.4-11.0)
[2024-04-29] MEDS: Lactated Ringers 1,000 ML 15 ML IV (06:39)
[2024-04-29 06:41] LABS: Internal QC Validated? YES +Cl - CLEAR BKGD; Pregnancy, Urine Negative Negative
[2024-04-29] MEDS: Lidocaine 1% /Epi 1:100 (20ml) 20 ML Vial (07:08)
--- NOTE | 2024-04-29 07:10 | PCM.PRE.AN2 ---
ASA Classification* ASA Classification ASA Classification: 3 Assessment & Plan Anesthesia* Anesthesia Assessment Anesthesia Assessment: Discussed sedation and/or anesthesia options, risks, benefits, and alternatives with patient/parents/legal guardian/POA. Questions invited. The patient/parents/legal guardian/POA seems to understand and agrees to proceed with anesthesia plan. Reviewed the physical assessment, medical history, allergy history and patient home medications list prior to surgery/procedure/anesthetic and documented any changes. Performed airway and anesthesia risk assessments. Anesthesia Type Anesthesia Type: MAC Anesthesia Focused Assessment* Temperature: 98.6 F Pulse Rate: 69 Blood Pressure: 122/71 Respiratory Rate: 16 Pulse Ox: 98 Airway Assessment Mouth opens: >3 cm Mallampati Score: II Focused Labs Anesthesia Preop lab: CBC WBC 9.5 K/mm3 (4.4-11.0) 04/29/24 05:16 RBC 4.56 M/mm3 (4.2-5.4) 04/29/24 05:16 Hgb 13.5 g/dL (12.0-15.0) 04/29/24 05:16 Hct 40.6 % (37-47) 04/29/24 05:16 Plt Count 278 K/mm3 (150-450) 04/29/24 05:16 CHEMISTRY Potassium 4.1 mmol/L (3.5-5.1) 02/23/23 12:12 Sodium 138 mmol/L (136-145) 02/23/23 12:12 BUN 15 mg/dL (7-18) 02/23/23 12:12 Creatinine 0.90 mg/dL (0.55-1.02) 02/23/23 12:12 Glucose 98 mg/dL (74-106) 02/23/23 12:12 TSH 1.03 uIU/mL (0.358-3.74) 03/26/15 10:32 COAG HCG, Quant < 1 mIU/mL (<9 non-preg) 12/11/14 00:10 Urine Test Negative Negative 04/29/24 06:10 Pre-Assessment Diagnosis/Proposed Procedure Planned Operative Procedure(s): HYSTEROSCOPY D&C LILETTA IUD INSERTION Anesthesia History Anesthesia History - supervisor mending: Anesthesia History - supervisor mending Hx Hospitalization No 04/22/24 14:54 Any Problems With Anesthesia Yes: N,V 04/22/24 14:54 Cholinesterase deficiency No 04/22/24 14:54 You/Your Family Experience No 04/22/24 14:54 fever (hyperthermia) with Relationship Recent Exposure to Contagious No 04/29/24 06:28 Disease Does patient have nerve No 04/22/24 14:54 stimulator Patient instructed to have device shut off --Does patient have Pacemaker No 04/29/24 06:29 or ICD? When Was Last Pacemaker Check QUESTION #4 FULL TEXT: You/Your Family Experience fever (hyperthermia) with Anesthesia Last Oral Intake Last Oral intake: Last Oral Intake NPO since 00:00 04/29/24 06:29 Meds taken in AM with sips of No 04/29/24 06:29 water? Meds patient instructed to take am of surgery PONV PONV - supervisor mending: PONV - supervisor mending Female Yes 04/22/24 14:54 HX of Motion Sickness No 04/22/24 14:54 HX of N/V After Surgery Yes 04/22/24 14:54 Non-Smoker No 04/22/24 14:54 Duration of Surgery greater No 04/22/24 14:54 than 60 minutes Number of Risk Factors 2 04/22/24 14:54 PONV Score Moderate Risk 04/22/24 14:54 Height & Weight Height & Weight: Anesthesia: Height & Weight Height 5 ft 6 in 04/29/24 06:29 Weight: 116 kg 04/29/24 06:29 Body Mass Index (BMI) 41.3 04/29/24 06:29 Respiratory Assessment Respiratory Assessment - supervisor mending: Respiratory Tract Infection Hx - supervisor mending Hx Respiratory Tract Infection No 04/22/24 14:54 STOP Sleep Apnea STOP Sleep Apnea - supervisor mending: STOP Sleep Apnea - supervisor mending Hx Hypertension No 04/22/24 14:54 Hx Sleep Apnea No 04/22/24 14:54 CPAP BIPAP Do you snore loudly (louder No 04/22/24 14:54 than talking or can be heard Do you often feel tired/ Yes 04/22/24 14:54 fatigued/ sleepy during daytime? Has anyone observed you stop No 04/22/24 14:54 breathing during sleep? STOP Results Negative 04/22/24 14:54 QUESTION #5 FULL TEXT : Do you snore loudly (louder than talking or can be heard through closed doors)? Tobacco Use History Tobacco Use History - supervisor mending: Tobacco Use History - supervisor mending Tobacco Use Smoking Status Current every day smoker 04/22/24 14:54 Hx Tobacco Use Yes 04/22/24 14:54 Years Smoking Packs Smoked per Day Smoking Cessation Date was within the last 15 years Hx Smoking Cessation Date Hx Smoking Cessation Counseling Hematologic Medial History Hematologic Hx - supervisor mending: Hematologic Medical Hx - rn clinical documentation specialist Hx of Blood Transfusion No 04/22/24 14:54 Hx of Transfusion in last 3 No 04/22/24 14:54 Months Date of Last Transfusion (if within last 3 months) Ever experience any problems No 04/22/24 14:54 with transfusion(s)? Specify any problems Hx of Preganancy in last 3 No 04/22/24 14:54 Months Nurse Filling Out Transfusion DSCHRIBER 04/22/24 14:54 & Questions: Date: 04/22/24 04/22/24 14:54 Time: 14:56 04/22/24 14:54 Patient unable to answer at this time (ie. confused, unrespo /Reproduction History /Reproductive History - supervisor mending: /Reproductive Hx- supervisor mending Hx Now No 04/22/24 14:54 Gestational Age (in weeks): EDC: Hx Hx Para Hx Section SAB No 04/22/24 14:54 Active Medications Active Medications: Current Medications Generic Name Dose Route Start Last Admin Trade Name Freq PRN Reason Stop Dose Admin Acetaminophen 1,000 mg 04/29/24 07:30 04/29/24 06:32 Acetaminophen 500 Mg Tablet PO 04/29/24 07:31 1,000 mg PREOP ONE Administration Doxycycline Monohydrate 100 mg 04/29/24 07:30 04/29/24 06:32 Doxycycline 100 Mg Capsule PO 04/29/24 07:31 100 mg PREOP ONE Administration Lactated Ringer's 1,000 mls @ 15 mls/hr 04/29/24 06:15 04/29/24 06:39 IV 15 mls/hr .Q48H RONI Administration Ketorolac Tromethamine 30 mg 04/29/24 07:30 04/29/24 06:32 Ketorolac 30 Mg/Ml Syringe IV 04/29/24 07:31 30 mg PREOP ONE Administration Levonorgestrel 1 each 04/29/24 07:30 Levonorgestrel Iud (Liletta) INTRA-UTER 04/29/24 07:31 X1 ONE Nicotine 14 mg 04/29/24 07:30 04/29/24 07:00 Nicotine 14 Mg Patch TD 04/29/24 07:31 14 mg PREOP ONE Administration PFSH Medical History Anxiety Alcohol use Arthritis Easy bruising Back pain Shortness of breath on exertion Numbness Wears glasses Loose, teeth Bipolar disorder Hidradenitis suppurativa DVT (deep venous thrombosis) Restless legs Migraine headache Smoker Home Medications ?Medication ?Instructions ?Recorded ?Last Taken ?Type naproxen 500 mg tablet 500 mg PO Q12H PRN pain 05/07/23 Unknown History cyclobenzaprine 10 mg tablet 10 mg PO QHS PRN PRN muscle spasm 04/29/24 04/28/24 History Allergy/AdvReac Type Severity Reaction Status Date / Time No Known Allergies Allergy Verified 04/22/24 14:53 Surgical History History of discectomy History of dilatation and curettage Social History household members: none Smoking Status: Current every day smoker tobacco type: cigarettes substance use type: does not use Review of Systems (Anesthesia) ROS Narrative System reviewed and no additional complaints, except as documented.
--- NOTE | 2024-04-29 07:30 | EMB_PTH ---
PATIENT: CHARLIE MARINELLI LOC: [facility] U#:[id number] AGE/SX: 38/F ROOM: RE04/29/[address]: Dr. Daniela Velarde MD : 1985 BED: DIS: 04/29/2024 SPEC #: [id number] RECD: 04/29/24 09:28 STATUS: JHONNY TAN #: [id number] FLAVIA: 04/29/24 07:[address]: Daniela Velarde DEPT: SURGICAL PATHOLOGY RECD BY: Medina Rivera ENTERED: 04/29/24 10:22 SP TYPE: ENDOM BX/C OT DR: Dr. Ty Rocha MD Tissues: Endometrium, NOS Procedures: Surgery Specimen Level IV HEADER OPERATION: Hysteroscopy, D&C, polyp resection PRE-OP DIAGNOSIS: Menorrhagia, abnormal uterine bleeding, IUD insertion TISSUE SUBMITTED: Endometrial curettings and polyp MICROSCOPIC DIAGNOSIS Endometrial curettings and polyp: Polypoid fragments of late secretory endometrium. Rare fragments of benign superficial endocervix. Focal changes suggestive of superficial adenomyosis. AMABR/ 05/02/2024 MICROSCOPIC DESCRIPTION Slides are reviewed. GROSS DESCRIPTION Received in fixative is one container labeled with the patient's name and designated Endometrial curettings and polyp. The specimen consists of multiple irregular fragments of keller soft tissue mixed with blood clot that in aggregate measure 5.0 x 3.0 x 0.2 cm. The specimen is totally submitted in two cassettes. Brennan 04/29/2024 TC:5 CPT:03660
[2024-04-29] MEDS: Levonorgestrel IUD (Liletta) 1 EACH INTRA-UTER (07:55)
--- NOTE | 2024-04-29 08:13 | DCINST_ITS ---
Discharge Instructions Diet Discharge Diet: No restrictions Activity May resume sexual activity in: 2 weeks Lifting Restrictions: none Dressing / Incision Call your doctor if your incision/area has: Sudden Increased Bleeding and Foul Smelling Discharge Call your doctor if you observe: Fever of 101 or Higher and Using more than 1 pad per hour (for 2 hrs in a row) Follow Up Care Please Follow Up With: Daniela Velarde MD When: You do not need a postop appointment. Call [phone] or send a [employer] message to make an appointment or with any concerns. We will contact you next week with pathology results. Test Results: Test results from this visit will be discussed in further detail at your follow- up appointment, if applicable. Discharge Plan Admission Primary Reason for Your Visit: D&C with polyp resection and Liletta IUD insertion Attending Provider: Daniela Velarde Primary Care Provider: Ty Rocha Instructions Print Language: Algerian Discharge Orders/Prescriptions Prescriptions: No Action naproxen 500 mg tablet 500 mg PO Q12H PRN (Reason: pain) Patient Comments: Take 1 tablet by mouth twice daily as needed for pain (pain/inflammation, take with food.). cyclobenzaprine 10 mg tablet 10 mg PO QHS PRN PRN (Reason: muscle spasm) Referrals / Follow Up: Ty Rocha MD [Primary Care Provider] - Disposition Disposition (needs filled in before D/C Order can be placed): Home, Self Care
--- NOTE | 2024-04-29 08:13 | PCM.POST.ANE ---
Anesthesia: Postop Eval I Current Vital Signs Temperature: 97.8 F Pulse Rate: 82 Blood Pressure: 98/48 Respiratory Rate: 16 Pulse Ox: 99 Oxygen Delivery Method: Room Air Assessment Airway patent: Yes Spontaneous unlabored respirations: Yes Mental status: Asleep nausea: No Vomiting: No Anesthesia Complication: No Fluid Hydration Crystalloid volume administer (ml): 400 Total IV fluid infused: 400 Progress Note Anesthesia document: Postop Eval 1 completed: Yes
--- NOTE | 2024-04-29 08:15 | PCM.OPRPT ---
Problems Associated Problem List Diagnoses (1) Encounter for IUD insertion: (2) Menorrhagia: (3) Abnormal uterine bleeding (AUB): (4) Endometrial polyp: Report of Operation Date of Procedure: 04/29/24 Pre-Operative Diagnosis: AUB, menorrhagia Post-Operative Diagnosis: same + endometrial polyp Surgery/Procedure Performed:: Hysteroscopy D&C with polyp resection and Liletta IUD insertion Description of Surgical Findings:: proliferative endometrium, anterior fundal polypoid lesion, normal cervix and vagina Surgeon: Daniela Velarde dental laboratory technology teacher: None Type of Anesthesia: MAC/Supplemental/Local Anesthesiologist: Shweta Atkinson Special Medications: none Specimen's removed: endometrial curettings and polyp Drains: none Estimated Blood Loss (mL): 5 Fluids Replaced: 400 Description of Procedure: The patient was taken to the OR where she was prepped and draped in dorsal lithotomy position. The weighted speculum was placed in the vagina and the anterior lip of the cervix was grasped with a single-tooth tenaculum. A paracervical block was administered with [1% lidocaine with 1-100,000 epinephrine solution]. The cervix was dilated serially with Hegar dilators. The [5mm] hysteroscope was placed into the uterine cavity and the above findings were noted. Bilateral tubal ostia [were] identified. The symphion resection device was inserted and readied. The resection device was used to perform a D&C and resect the polypoid lesion that was on the anterior fundus of the uterus. The Liletta IUD was then inserted in the usual sterile fashion and the strings cut to 2 cm. The uterus sounded to 9 cm.. The instruments were removed from the vagina. The specimen was handed off and sent to pathology. All sponge and needle counts were correct. Vaginal sweep was performed by me. The patient was awakened and taken to the recovery room in stable condition. Calculated hysteroscopic fluid deficit was 650 cc of normal saline Grafts/Implants Used: Liletta IUD Procedure Start Time: 07:54 Procedure Stop Time: 08:04 Complications none Admit VTE Documentation VTE Present on Admission: No VTE Mechan Device Prophylaxis: SCD's VTE Pharm Prophylaxis ordered?: No Reason prophylaxis not ordered:: Procedure Not Indicated
--- NOTE | 2024-04-29 08:31 | POSTOPAN2_ITS ---
Anesthesia Postop Eval I Sum Postop Eval Completion status Anesthesia document: Postop Eval 1 completed: Yes Anesthesia Postop Eval I Summary Anesthesia Postop Eval I Summary: Anesthesia Postop Eval I: Assessment Summary Airway patent Yes 04/29/24 08:14 MATERIALS [email or web address].GRACE Spontaneous unlabored Yes 04/29/24 08:14 MATERIALS TECHMONO respirations Mental status Asleep 04/29/24 08:14 MATERIALS TECH.GRACE nausea No 04/29/24 08:14 MATERIALS TECH.GRACE Vomiting No 04/29/24 08:14 MATERIALS TECHMONO Anesthesia Postop Eval I: Fluid Summary Crystalloid volume administer 400 04/29/24 08:14 MATERIALS TECH.GRACE (ml) Colloids volume administered ( ml) Blood Product volume administered (ml) Total IV fluid infused 400 04/29/24 08:14 MATERIALS TECHMONO Anesthesia Postop Eval I: Summary Notes Anesthesia Complication No 04/29/24 08:14 ARMIDA Anesthesia Complication Comment: Post-operative progress note Anesthesia: Postop Eval II Evaluation Mental status: Awake Pain Level: 0 nausea: No Vomiting: No Complications Anesthesia Complication: No
--- NOTE | 2024-04-29 08:31 | PCM.POSTANE2 ---
Anesthesia Postop Eval I Sum Postop Eval Completion status Anesthesia document: Postop Eval 1 completed: Yes Anesthesia Postop Eval I Summary Anesthesia Postop Eval I Summary: Anesthesia Postop Eval I: Assessment Summary Airway patent Yes 04/29/24 08:14 LICENSING ENGINEER.GRACE Spontaneous unlabored Yes 04/29/24 08:14 LICENSING ENGINEERMONO respirations Mental status Asleep 04/29/24 08:14 LICENSING ENGINEER.GRACE nausea No 04/29/24 08:14 LICENSING ENGINEER.GRACE Vomiting No 04/29/24 08:14 LICENSING ENGINEERMONO Anesthesia Postop Eval I: Fluid Summary Crystalloid volume administer 400 04/29/24 08:14 LICENSING ENGINEER.GRACE (ml) Colloids volume administered ( ml) Blood Product volume administered (ml) Total IV fluid infused 400 04/29/24 08:14 LICENSING ENGINEERMONO Anesthesia Postop Eval I: Summary Notes Anesthesia Complication No 04/29/24 08:14 ARMIDA Anesthesia Complication Comment: Post-operative progress note Anesthesia: Postop Eval II Evaluation Mental status: Awake Pain Level: 0 nausea: No Vomiting: No Complications Anesthesia Complication: No
== END 2024-04-29 09:16 | disposition home or self-care (01) ==
LOC: SDC 06:00 → AC 06:01
PROVIDERS: Anesthesiology; PCP Internal Medicine; Referring Provider Obstetrics & Gynecology; Visit Provider Obstetrics & Gynecology
PROC: 0UB98ZZ Excision of Uterus, Via Natural or Artificial Opening Endoscopic (ICD-10-PCS; CPT 58558; principal; 2024-04-29 07:15)
DX: N92.0 Excessive and frequent menstruation with regular cycle (principal); F31.9 Bipolar disorder, unspecified; N80.03 Adenomyosis of the uterus; N93.9 Abnormal uterine and vaginal bleeding, unspecified; N84.0 Polyp of corpus uteri; F17.210 Nicotine dependence, cigarettes, uncomplicated; Z30.430 Encounter for insertion of intrauterine contraceptive device; Z86.718 Personal history of other venous thrombosis and embolism
CPT/HCPCS: 58558; 58300; 00952; 81025; 85027; 88305; J7120; J2405

== ENCOUNTER 2024-08-12 09:48 | Emergency (ER) | payer MEDICAID, SELFPAY ==
[2024-08-12 09:50] VITALS: BP 143/93; PULSE 91; RESP 14; TEMP 36.8; O2SAT 100; BMI 38.6
[2024-08-12 11:03] LABS: Basophil# 0.08 X10^3/uL; Basophil% 0.6 % (0-1); Eosinophils% 0.8 % (0-5); Hematocrit 47.3 % (37-47); Hemoglobin 15.7 g/dL (12.0-15.0); Lymphocyte % 22.3 % (19-41); Mean Corp Hgb Conc 33.2 g/dL (32-36); Mean Corpuscular Volume 87.3 fL (81-99); Mean Platelet Vol. 9.8 fl (6.2-12.0); Monocyte# 0.85 X10^3/uL; Monocyte% 6.5 % (0-10); NRBC Flagged by Analyzer 0 % (0-5); Neutrophil % 69.3 % (47-70); Platelet Count 285 K/mm3 (150-450); RBC Distribution Width CV 14.6 % (11.6-14.6); RBC Distribution Width SD 46.9 fl (35.1-43.9); Red Blood Count 5.42 M/mm3 (4.2-5.4)
[2024-08-12 11:20] LABS: Internal QC Validated? YES +Cl - CLEAR BKGD; Pregnancy, Serum, hCG Quali. NEGATIVE Negative
[2024-08-12 11:21] LABS: Anion Gap 5 (5-15); BUN 10 mg/dL (7-18); BUN/Creat Ratio 10.3 RATIO (10-20); Calcium,Total 9.6 mg/dL (8.5-10.1); Chloride 108 mmol/L (98-107); Creatinine, Serum 0.97 mg/dL (0.55-1.02); EST Glomerular Filtration Rate 68 mL/min (>60); Est Glom Filt Rate - Afr Amer 82 mL/min (>60); Estimated Creatinine Clearance 100.45 ml/min; Glucose 107 mg/dL (74-106); Potassium 4.1 mmol/L (3.5-5.1); Sodium Level 136 mmol/L (136-145)
[2024-08-12 13:33] LABS: Amphetamine Urine VISTA NEGATIVE (<1000 ng/mL); Barbiturate Urine VISTA NEGATIVE (< 200 ng/mL); Benzodiazepine Urine VISTA NEGATIVE (< 200 ng/mL); Cocaine Urine VISTA NEGATIVE (< 300 ng/mL); Ecstacy Urine VISTA NEGATIVE (< 500 ng/mL); Methadone Urine VISTA NEGATIVE (< 300 ng/mL); PCP Urine VISTA NEGATIVE (< 25 ng/mL); THC Urine VISTA NEGATIVE (< 50 ng/mL); Vista UDS pH Range 5
== END 2024-08-12 12:59 | disposition home or self-care (01) ==
PROVIDERS: Emergency Provider Emergency Medicine; PCP Internal Medicine; Visit Provider Emergency Medicine
DX: R45.851 Suicidal ideations (principal); F31.9 Bipolar disorder, unspecified; F17.210 Nicotine dependence, cigarettes, uncomplicated
CPT/HCPCS: 80048; 80307; 82077; 84703; 85025; 99285

== ENCOUNTER 2025-01-16 10:30 | Emergency (ER) | payer SELFPAY ==
[2025-01-16 10:30] VITALS: BP 154/77; PULSE 79; RESP 16; TEMP 36.8; O2SAT 100; BMI 40.8
--- NOTE | 2025-01-16 11:09 | EKG12_ITS ---
Test Reason : CP Blood Pressure : */* mmHG Vent. Rate : 74 BPM Atrial Rate : 74 BPM P-R Int : 132 ms QRS Dur : 86 ms QT Int : 386 ms P-R-T Axes : 39 69 0 degrees QTcB Int : 428 ms Normal sinus rhythm Normal ECG Confirmed by Too Cosby ([id number]), publishing editor YANELI ECHEVARRIA ([id number]) on 01/17/2025 11:27:39 AM Referred By: RU/BB Confirmed By: Too Cosby
--- NOTE | 2025-01-16 11:10 | EDS_ITS ---
HPI <ALEXIS Dempsey - Last Filed: 01/16/25 13:45> History of Present Illness Chief Complaint: Chest Pain Narrative Narrative: 39-year-old female with past medical history of tobacco use x 20 years presents with left-sided chest tightness. It started 3 days ago and is tight in her left midsternal area and under the breast. It can last anywhere from 5 minutes to an hour and usually occurred while sitting but today happened while walking at work. Her symptoms were worse over the weekend but what prompted her visit is calling her primary care office today who recommended ED evaluation. She denies associated shortness of breath, nausea or vomiting, or diaphoresis. No fever or upper respiratory symptoms. No abdominal or back pain. No history of similar symptoms or personal cardiac history. She has a strong family history of cardiac disease in her mom and maternal grandfather. Patient has no history of DVT/PE. She traveled to [place] in an 8-hour car trip 2 weeks ago. Denies leg pain or swelling. PFSH <ALEXIS Dempsey - Last Filed: 01/16/25 13:45> PFSH Medical History Anxiety Alcohol use Arthritis Easy bruising Back pain Shortness of breath on exertion Numbness Wears glasses Loose, teeth Bipolar disorder Hidradenitis suppurativa DVT (deep venous thrombosis) Restless legs Migraine headache Smoker Home Medications ?Medication ?Instructions ?Recorded ?Last Taken ?Type naproxen 500 mg tablet 500 mg PO Q12H PRN pain 08/0 12/25 Unknown History cyclobenzaprine 10 mg tablet 10 mg PO QHS PRN PRN musc le spasm 04/29/24 04/28/24 History Allergy/AdvReac Type Severity Reaction Status Date / Time No Known Allergies Allergy Verified 01/16/25 10:32 Surgical History History of discectomy History of dilatation and curettage Social History (Updated 01/16/25 @ 11:40 by Grace Potts) household members: none housing: house Smoking Status: Current every day smoker tobacco type: cigarettes substance use type: does not use ROS <ALEXIS Dempsey - Last Filed: 01/16/25 13:45> ROS ED ROS Narrative Constitutional: Negative for fever, chills, malaise. CVS: Positive for chest pain. Negative for palpitations, syncope. Respiratory: Negative for shortness of breath, cough. GI: Negative for abdominal pain, nausea, vomiting. EXAM <ALEXIS Dempsey - Last Filed: 01/16/25 13:45> Physical Exam Narrative Exam Narrative: CONST: Patient sitting in no acute distress. EYES: Normal inspection. NECK: Normal inspection. RESP: No respiratory distress, CTAB. CVS: Regular rate and rhythm, no murmur, no gallop. ABD: Soft and nontender, no guarding or rebound, nondistended. SKIN: Color normal, no rash, warm, dry, intact. EXTREMITIES: Normal appearance, no pedal edema. NEURO: Alert and answering questions appropriately. PSYCH: Normal affect. Const Vital Signs: 01/16/25 10:30 01/16/25 11:39 01/16/25 11:39 Temperature 98.2 F Temperature Source Oral Pulse Rate 79 70 Respiratory Rate 16 18 Respiratory Effort Blood Pressure 154/77 H 148/78 H Blood Pressure Mean 102 101 Pulse Ox 100 100 98 Oxygen Delivery Method Room Air Room Air 01/16/25 11:39 01/16/25 12:00 01/16/25 13:00 Temperature Temperature Source Pulse Rate 74 78 Respiratory Rate 16 16 Respiratory Effort Normal Non-Labored Blood Pressure 127/80 H 113/81 H Blood Pressure Mean 95 91 Pulse Ox 98 98 Oxygen Delivery Method 01/16/25 13:25 Temperature 97.9 F Temperature Source Pulse Rate 78 Respiratory Rate 16 Respiratory Effort Blood Pressure 113/81 H Blood Pressure Mean 91 Pulse Ox 98 Oxygen Delivery Method <Dr. Valarie Cheng DO - Last Filed: 01/16/25 13:14> Physical Exam Const Vital Signs: 01/16/25 10:30 01/16/25 11:39 01/16/25 11:39 Temperature 98.2 F Temperature Source Oral Pulse Rate 79 70 Respiratory Rate 16 18 Respiratory Effort Blood Pressure 154/77 H 148/78 H Blood Pressure Mean 102 101 Pulse Ox 100 100 98 Oxygen Delivery Method Room Air Room Air 01/16/25 11:39 01/16/25 12:00 01/16/25 13:00 Temperature Temperature Source Pulse Rate 74 78 Respiratory Rate 16 16 Respiratory Effort Normal Non-Labored Blood Pressure 127/80 H 113/81 H Blood Pressure Mean 95 91 Pulse Ox 98 98 Oxygen Delivery Method 01/16/25 13:25 Temperature 97.9 F Temperature Source Pulse Rate 78 Respiratory Rate 16 Respiratory Effort Blood Pressure 113/81 H Blood Pressure Mean 91 Pulse Ox 98 Oxygen Delivery Method [facility] <ALEXIS Dempsey - Last Filed: 01/16/25 13:45> [facility] Narrative Medical decision making narrative: 39-year-old female presents with 3 days of left-sided chest tightness mainly occurring at rest. No other associated symptoms. She appears well and nontoxic. Vital signs stable. She has normal cardiopulmonary exam. There is no tenderness of her chest or abdominal wall. No skin changes or signs of zoster. No abdominal tenderness or symptoms. Basic labs overall unremarkable. EKG is normal sinus rhythm without acute ischemic changes and troponin x 2 negative. Since she had recent travel D-dimer was obtained and is also negative. Her symptoms do not sound cardiac in nature. The etiology is not clear at this time. I recommended she follow-up with her primary care doctor for further evaluation and discussed return precautions. She was discharged in stable condition. Differential includes but not limited to: ACS, PE, musculoskeletal pain, GERD I have personally performed a face to face assessment of the patient and have reviewed the LESLI Note. I performed a substantive portion of the visit including all aspects of the following. My dueñas findings include: History is [patient presents to the emergency department with complaint of chest discomfort for the last 3 days. She describes intermittent episodes lasting up to an hour. At times it feels like a cramping and a tightness. Pain is not n ecessarily exertional and can happen at rest. She has multiple episodes throughout the day. At times she states the pain is underneath her left breast and at times into her armpit. Denies radiation into the arm or neck although she states that she has some nerve pain chronically. She denies history of PE. She states that as a child she had a DVT from trauma. She states that recently she traveled to [place] which was an 8-hour car ride. She denies recent illness. She has significant family history of heart disease and that her mom's had multiple MIs and stenting procedures starting around the age of 40.] Exam is [HEENT-PERRLA, EOMI. Cranial nerves II through XII grossly intact. TMs clear. Mucous membranes moist. No adenopathy. Cardiovascular-regular rate and rhythm without murmur or ectopy Lungs-clear to auscultation, chest wall stable without crepitus or subcu emphysema Abdomen-normoactive bowel sounds, soft, nontender, no rebound or rigidity, no peritoneal signs. Extremities-intact ?4, normal range of motion, normal pulses, atraumatic] Medical Decison Making [EKG obtained arrival shows sinus rhythm with ventricular rate of 74 bpm with no acute ST segment changes and occasional PVC. CBC with additional count 10.1 with hemoglobin 14.8 and platelet count of 229. Chemistries unremarkable. Troponin is less than 6. D-dimer normal at 0.27. 1 view chest x-ray was unremarkable. This point etiology of her chest pain unclear. I do not think she is having an acute coronary syndrome. Do not think she is having a PE. Pain has been intermittent. Cannot rule out stress or anxiety. Esophageal spasm would be in the differential. Less likely costochondritis or pleurisy. Patient advised to follow-up with her primary care physician within next 2 to 5 days] Other additions or changes: [None] Lab Data Labs: Laboratory Results - last 24 hr 01/16/25 01/16/25 10:44 12:44 WBC 10.1 RBC 4.98 Hgb 14.8 Hct 43.7 MCV 87.8 MCH 29.7 MCHC 33.9 RDW Std Deviation 46.7 H RDW Coeff of Chinmay 14.5 Plt Count 229 MPV 10.5 Immature Gran % (Auto) 0.500 Neut % (Auto) 63.0 Lymph % (Auto) 27.6 [place] % (Auto) 5.8 Eos % (Auto) 2.5 Baso % (Auto) 0.6 Absolute Neuts (auto) 6.4 Absolute Lymphs (auto) 2.79 Nucleated RBC % 0 D-Dimer Quant (PE/DVT) 0.27 Sodium 137 Potassium 4.4 Chloride 105 Carbon Dioxide 20.6 L Anion Gap 11 BUN 13 Creatinine 0.88 Estim Creat Clear Calc 114.24 Est GFR (MDRD) Non-Af 85 BUN/Creatinine Ratio 14.9 Glucose 100 H Calcium 8.8 Troponin T High Sens < 6 Troponin T Hi Sens 2 Hr < 6 Radiography Diagnostic Testing: Clinical Impression(s) from Imaging Studies Chest X-Ray 01/16/25 11:25 IMPRESSION: NO ACUTE FINDINGS. Reading Location: [facility] ED attending interpretation of 2-view chest x-ray shows normal heart size, no acute infiltrate, edema, or effusion. EKG Initial EKG: Attestation: I personally reviewed and interpreted this EKG as follows: Interpretation: Sinus Rhythm and No Acute Injury Pattern Comments: Normal sinus rhythm at 74 bpm Normal intervals, no acute ischemic change <Dr. Valarie Cheng, DO - Last Filed: 01/16/25 13:14> [facility] MDM Narrative Medical decision making narrative: I have personally performed a face to face assessment of the patient and have reviewed the LESLI Note. I performed a substantive portion of the visit including all aspects of the following. My dueñas findings include: History is [patient presents to the emergency department with complaint of chest discomfort for the last 3 days. She describes intermittent episodes lasting up to an hour. At times it feels like a cramping and a tightness. Pain is not necessarily exertional and can happen at rest. She has multiple episodes throughout the day. At times she states the pain is underneath her left breast and at times into her armpit. Denies radiation into the arm or neck although she states that she has some nerve pain chronically. She denies history of PE. She states that as a child she had a DVT from trauma. She states that recently she traveled to [place] which was an 8-hour car ride. She denies recent illness. She has significant family history of heart disease and that her mom's had multiple MIs and stenting procedures starting around the age of 40.] Exam is [HEENT-PERRLA, EOMI. Cranial nerves II through XII grossly intact. TMs clear. Mucous membranes moist. No adenopathy. Cardiovascular-regular rate and rhythm without murmur or ectopy Lungs-clear to auscultation, chest wall stable without crepitus or subcu emphysema Abdomen-normoactive bowel sounds, soft, nontender, no rebound or rigidity, no peritoneal signs. Extremities-intact ?4, normal range of motion, normal pulses, atraumatic] Medical Decison Making [EKG obtained arrival shows sinus rhythm with ventricular rate of 74 bpm with no acute ST segment changes and occasional PVC. CBC with additional count 10.1 with hemoglobin 14.8 and platelet count of 229. Chemistries unremarkable. Troponin is less than 6. D-dimer normal at 0.27. 1 view chest x-ray was unremarkable. This point etiology of her chest pain unclear. I do not think she is having an acute coronary syndrome. Do not think she is having a PE. Pain has been intermittent. Cannot rule out stress or anxiety. Esophageal spasm would be in the differential. Less likely costochondritis or pleurisy. Patient advised to follow-up with her primary care physician within next 2 to 5 days] Other additions or changes: [None] Lab Data Attestation: I reviewed the patient's lab results. Labs: Laboratory Results - last 24 hr 01/16/25 01/16/25 10:44 12:44 WBC 10.1 RBC 4.98 Hgb 14.8 Hct 43.7 MCV 87.8 MCH 29.7 MCHC 33.9 RDW Std Deviation 46.7 H RDW Coeff of Chinmay 14.5 Plt Count 229 MPV 10.5 Immature Gran % (Auto) 0.500 Neut % (Auto) 63.0 Lymph % (Auto) 27.6 [place] % (Auto) 5.8 Eos % (Auto) 2.5 Baso % (Auto) 0.6 Absolute Neuts (auto) 6.4 Absolute Lymphs (auto) 2.79 Nucleated RBC % 0 D-Dimer Quant (PE/DVT) 0.27 Sodium 137 Potassium 4.4 Chloride 105 Carbon Dioxide 20.6 L Anion Gap 11 BUN 13 Creatinine 0.88 Estim Creat Clear Calc 114.24 Est GFR (MDRD) Non-Af 85 BUN/Creatinine Ratio 14.9 Glucose 100 H Calcium 8.8 Troponin T High Sens < 6 Troponin T Hi Sens 2 Hr < 6 Radiography Diagnostic Testing: Clinical Impression(s) from Imaging Studies Chest X-Ray 01/16/25 11:25 IMPRESSION: NO ACUTE FINDINGS. Reading Location: [facility] Discharge Plan Triage Chief Complaint: Chest Pain ED Midlevel Provider: Isabel Page ED Provider: Valarie Cheng Dx/Rx/DC Orders Clinical Impression: Chest pain Instructions: ED Chest Pain, Uncertain Cause Prescriptions: No Action naproxen 500 mg tablet 500 mg PO Q12H PRN (Reason: pain) Patient Comments: Take 1 tablet by mouth twice daily as needed for pain (pain/inflammation, take with food.). cyclobenzaprine 10 mg tablet 10 mg PO QHS PRN PRN (Reason: muscle spasm) Primary Care Provider: Ty Rocha Referrals: Ty Rocha MD [Primary Care Provider] - Activity Restrictions/Additional Instructions: Your screening tests are normal. I recommend Tylenol ibuprofen for your symptoms and close follow-up with your primary care doctor. Due to your family history of cardiac disease you may need a stress test or other outpatient evaluation. If symptoms worsen come back to the ER. Print Language: Danish Disposition Disposition: Home, Self Care Discharge Date/Time: 01/16/25 13:28
[2025-01-16] MEDS: Aspirin 81 MG TAB.CHEW 324 MG PO (11:14)
--- NOTE | 2025-01-16 11:25 | RAD_ITS ---
PROCEDURE: CHEST PA AND LATERAL 01/16/2025 REASON FOR EXAM: CHEST PAIN TECHNIQUE: Frontal and lateral views of the chest. COMPARISON: None FINDINGS: Heart: The heart size is normal. Mediastinum: The mediastinal contour is unremarkable. Lungs: The lungs are clear. No pleural effusion. RAD/Chest PA and Lateral IMPRESSION: NO ACUTE FINDINGS. Reading [facility]
[2025-01-16 11:30] LABS: Absolute Lymphocyte Count 2.79 X10^3/uL (0.83-4.51); Absolute Neutrophil Count 6.4 X10^3/uL (2.0-7.7); Basophil# 0.06 X10^3/uL; Basophil% 0.6 % (0-1); Eosinophil# 0.25 X10^3/uL; Eosinophils% 2.5 % (0-5); Hematocrit 43.7 % (37-47); Hemoglobin 14.8 g/dL (12.0-15.0); Lymphocyte # 2.79 X10^3/ul (0.83-4.51); Lymphocyte % 27.6 % (19-41); Mean Corp Hgb Conc 33.9 g/dL (32-36); Mean Corpuscular Hgb 29.7 pg (27.0-32.0); Mean Corpuscular Volume 87.8 fL (81-99); Mean Platelet Vol. 10.5 fl (6.2-12.0); Monocyte# 0.59 X10^3/uL; Monocyte% 5.8 % (0-10); NRBC Flagged by Analyzer 0 % (0-5); Neutrophil # 6.37 X10^3/uL (2.7-7.7); Platelet Count 229 K/mm3 (150-450); RBC Distribution Width CV 14.5 % (11.6-14.6); RBC Distribution Width SD 46.7 fl (35.1-43.9); Red Blood Count 4.98 M/mm3 (4.2-5.4); White Blood Count 10.1 K/mm3 (4.4-11.0)
[2025-01-16 11:39] VITALS: BP 148/78; PULSE 70; RESP 18; O2SAT 100; O2SAT 98
[2025-01-16 11:51] LABS: D-Dimer Quantitative (DVT/PE) 0.27 FEU/ug/m (0.27-0.49)
[2025-01-16 12:00] VITALS: BP 127/80; PULSE 74; RESP 16; O2SAT 98
[2025-01-16 12:13] LABS: Anion Gap 11 (5-15); BUN 13 mg/dL (4-19); BUN/Creat Ratio 14.9 RATIO (10-20); Calcium,Total 8.8 mg/dL (7.6-11.0); Carbon Dioxide 20.6 mmol/L (21.0-32.0); Chloride 105 mmol/L (98-108); Creatinine, Serum 0.88 mg/dL (0.70-1.20); EST Glomerular Filtration Rate 85 (>60); Estimated Creatinine Clearance 114.24 ml/min (50-250); Glucose 100 mg/dL (70-99); Potassium 4.4 mmol/L (3.3-5.1); Sodium Level 137 mmol/L (133-145); Troponin T High Sensitivity < 6 ng/L (<=14)
[2025-01-16 13:00] VITALS: BP 113/81; PULSE 78; RESP 16; O2SAT 98
[2025-01-16 13:18] LABS: Troponin T High Sens 2 HR < 6 ng/L (<=14)
[2025-01-16 13:25] VITALS: BP 113/81; PULSE 78; RESP 16; TEMP 36.6; O2SAT 98
== END 2025-01-16 13:28 | disposition home or self-care (01) ==
PROVIDERS: Physician Assistant; Emergency Provider Emergency Medicine; PCP Internal Medicine; Visit Provider Emergency Medicine
DX: R07.89 Other chest pain (principal); F17.210 Nicotine dependence, cigarettes, uncomplicated; Z82.49 Family history of ischemic heart disease and other diseases of the circulatory system
CPT/HCPCS: 71046; 80048; 84484; 85025; 85379; 93005; 99285; A4216

== ENCOUNTER 2025-05-10 11:47 | Inpatient (IN) | payer MEDICAID, SELFPAY ==
[2025-05-10] VITALS (7 sets, daily range): BP systolic 113–138; BP diastolic 52–93; PULSE 68–104; RESP 16–22; TEMP 36.4–39.2; O2SAT 97–100; BMI 40.5
--- NOTE | 2025-05-10 12:14 | ED.VIS.GI ---
HPI HPI - GI History of Present Illness Chief Complaint: Abd Pain Detail of Chief Complaint: Abdominal pain Informant: patient Abdominal Pain/Flank Pain Current Severity: 07/14 Narrative Narrative: Patient presents to the emergency room with complaint of abdominal pain that started initially 2 days ago. Patient states that it became more severe about 1 hour ago. Pain is diffuse. She describes some mild nausea but no vomiting. She has had no diarrhea. Last bowel movement was several days ago. She is currently on menstrual period day #6. She does not think she is . She has had no prior abdominal surgeries. Has had no fever today but she had fever yesterday up to 102 at home. She denies dysuria urgency or frequency. PFSH PFSH Medical History Anxiety Alcohol use Arthritis Easy bruising Back pain Shortness of breath on exertion Numbness Wears glasses Loose, teeth Bipolar disorder Hidradenitis suppurativa DVT (deep venous thrombosis) Restless legs Migraine headache Smoker Home Medications ?Medication ?Instructions ?Recorded ?Last Taken ?Type naproxen 500 mg tablet 500 mg PO Q12H PRN pain 05/07/23 05/09/25 History prednisone 20 mg tablet 20 mg PO DAILY 05/10/25 05/10/25 History spironolactone 50 mg tablet 50 mg PO DAILY 05/10/25 05/09/25 History tizanidine 4 mg tablet 4 mg PO Q8H PRN 05/10/25 05/09/25 History trazodone 50 mg tablet 25 - 50 mg PO QHS PRN PRN insomnia 05/10/25 05/09/25 History venlafaxine 37.5 mg 37.5 mg PO DAILY 05/10/25 05/09/25 History capsule,extended release 24 hr Allergy/AdvReac Type Severity Reaction Status Date / Time No Known Allergies Allergy Verified 05/10/25 11:49 Surgical History History of discectomy History of dilatation and curettage Social History (Updated 01/16/25 @ 11:40 by Grace Potts) household members: none housing: house Smoking Status: Current every day smoker tobacco type: cigarettes substance use type: does not use ROS ROS ED Review of Systems ROS Unobtainable: other Constitutional Constitutional ED: Reports lethargy; Denies chills, fever(s), sweats or weight loss Eyes Eyes: Denies blurry vision, change in vision or diplopia ENT ENT ED: Denies rhinorrhea or sore throat Cardiovascular Cardiovascular: Denies chest pain, orthopnea or racing heartbeat Respiratory/Chest Respiratory/Chest: Denies cough, dyspnea, dyspnea on exertion, orthopnea or sputum Gastrointestinal Gastrointestinal: Reports abdominal pain; Denies diarrhea, nausea or vomiting Genitourinary Genitourinary ED: Denies dysuria, hematuria or urinary frequency Musculoskeletal Musculoskeletal: Denies arthralgias, back pain, myalgias or neck pain Integumentary Denies abscess, Abrasions or rash Neurologic Neurologic: Denies headache(s) or weakness Psychiatric Psychiatric: Denies anxiety, depression or suicidal thoughts Endocrine Endocrinology: Denies polydipsia, polyphagia or polyuria Hematologic/Lymphatic Hematologic/Lymphatic: Denies easy bleeding, easy bruising or lymphadenopathy Allergic/Immunologic Allergic/Immunologic ED: Denies mouth swelling, tongue swelling or urticaria EXAM Physical Exam Const Vital Signs: 05/10/25 11:47 05/10/25 14:53 Temperature 97.6 F L 101.1 F H Temperature Source Oral Oral Pulse Rate 87 94 Respiratory Rate 22 H 16 Blood Pressure 125/93 H 138/61 H Blood Pressure Mean 103 86 Pulse Ox 100 99 Oxygen Delivery Method Room Air Room Air Positive well nourished and well developed General Appearance ED: well developed and NAD HEENT Reports TM's clear and moist mucous membranes normocephalic and atraumatic; Negative for trauma or tenderness Tympanic Membrane ED: Yes TM's clear Eyes PERRL and EOMs intact bilaterally General Eye ED: Negative for pale conjunctiva or scleral icterus Neck no lymphadenopathy, supple and no JVD General: Negative for tenderness Chest Wall inspection of chest normal and palpation of chest normal Chest: Negative for tenderness Resp normal respiratory effort and clear to auscultation bilaterally Effort and Inspection: Negative for respiratory distress or pain with movement Auscultation: Negative for rhonchi, wheezes or diminished lung sounds Cardio regular rate, regular rhythm, S1 normal heart sound, S2 normal heart sound and no murmurs Peripheral Pulses: pulses 2+ throughout GI normal to inspection, nondistended, normoactive bowel sounds, soft to palpation, non-distended and no masses GI Narrative: Diffuse tenderness to palpation throughout. Patient morbidly obese. Really does not allow for good exam as she is constantly moving my hand away from her abdomen. There is no rebound or rigidity. Back/Spine no CVA tenderness and no thoracic nor lumbar tenderness Extremity normal to inspection General Extremety ED: Negative for edema General Extremity: Negative for edema Neuro oriented x3, CN's II-XII intact bilaterally, no sensory deficits noted and gait normal Sensorium / Orientation: awake, alert, oriented to person, oriented to place and oriented to time Motor Exam: strength 5/5 throughout and strength abnormal Psych mental status grossly normal Skin no rashes or lesions noted and no wounds MDM MDM MDM Narrative Medical decision making narrative: Patient presents with lower abdominal pain ongoing for several days with fever. Patient denies nausea or vomiting. She has had no diarrhea. Currently on her menstrual period. In the differential would be PID versus appendicitis or other acute bowel process. No family history of inflammatory bowel disease. Patient was medicated with morphine and Zofran initially. CBC with differential obtained showed a white count of 19.4 with hemoglobin 14 and platelet count of 260. Chemistries unremarkable. LFTs unremarkable. hCG was negative. Urinalysis negative for infection. CT scan of the abdomen pelvis showed mild inflammatory changes of several loops of distal ileum which may be consistent with inflammatory bowel disease. Patient also had hydrosalpinx on the right with some moderate fluid in the cul-de-sac. I did obtain a ultrasound of the pelvis and she had good flow to the right ovary. She had hydrosalpinx and no other acute findings. I discussed case with Dr. Aquino who was able to see that she patient has had prior ultrasounds in 2022 that showed the hydrosalpinx at that time. Patient also had STI screening in February of this year and it was negative for gonorrhea and chlamydia. I did do a pelvic exam initially and she had some bloody discharge but no significant cervical motion tenderness on exam. I did order gonorrhea chlamydia studies to be done from the urine. I did start patient empirically on Zosyn. Will discuss case with scientific programmer analyst and hospitalist to evaluate patient for admission. Patient continues to complain of significant pain Lab Data Attestation: I reviewed the patient's lab results. Labs: Laboratory Results - last 24 hr 05/10/25 05/10/25 12:29 13:58 WBC 19.4 H RBC 4.73 Hgb 14.2 Hct 42.2 MCV 89.2 MCH 30.0 MCHC 33.6 RDW Std Deviation 49.6 H RDW Coeff of Chinmay 15.1 H Plt Count 260 MPV 9.9 Immature Gran % (Auto) 1.700 H Neut % (Auto) 82.7 H Lymph % (Auto) 10.9 L [place] % (Auto) 4.1 Eos % (Auto) 0.1 Baso % (Auto) 0.5 Absolute Neuts (auto) 16.0 H Absolute Lymphs (auto) 2.11 Nucleated RBC % 0 Sodium 133 Potassium 4.9 Chloride 100 Carbon Dioxide 16.7 L Anion Gap 16 H BUN 16 Creatinine 0.97 Est GFR (MDRD) Non-Af 76 BUN/Creatinine Ratio 17.0 Glucose 119 H Lactic Acid 2.5 H* Calcium 8.7 Total Bilirubin 0.77 AST 26 ALT 22 Alkaline Phosphatase 86 Total Protein 6.6 Albumin 3.7 Globulin 2.8 Albumin/Globulin Ratio 1.3 Serum , Qual NEGATIVE Urine Color Yellow Urine Clarity Clear Urine pH 7.0 Ur Specific [place] 1.005 Urine Protein 15 H Urine Glucose (UA) Normal Urine Ketones Negative Urine Occult Blood 250 H Urine Nitrite Negative Urine Bilirubin Negative Urine Urobilinogen Normal Ur Leukocyte Esterase Negative Urine RBC 10-25 SEEN Urine WBC 0-5 SEEN Ur Squamous Epith Cells 0-5 SEEN Urine Bacteria RARE Urine Mucus 0 SEEN Radiography Diagnostic Testing: Clinical Impression(s) from Imaging Studies Abdomen/Pelvis CT 05/10/25 12:37 IMPRESSION: 1. Very mild thickening, inflammation of several loops of distal ileum. No stricture, pneumatosis or pneumoperitoneum. No obstruction. Findings suggestive of inflammatory bowel disease. 2. Hydrosalpinx on the right. Some fluid is seen around the right adnexa and in the cul-de-sac. Some of this may be related to the underlying adjacent bowel process. If symptoms are relatable to the pelvis/pelvic organs, ultrasound could be performed. Reading Location: [place] Transvaginal US 05/10/25 13:30 IMPRESSION: Findings suggestive of right-sided hydrosalpinx with fluid in the cul-de-sac. IUD is seen within the endometrium. Reading Location: [facility] Discharge Plan Triage Chief Complaint: Abd Pain ED Provider: Valarie Cheng Dx/Rx/DC Orders Clinical Impression: Abdominal pain, Leukocytosis, Inflammatory bowel disease Prescriptions: No Action naproxen 500 mg tablet 500 mg PO Q12H PRN (Reason: pain) Patient Comments: Take 1 tablet by mouth twice daily as needed for pain (pain/inflammation, take with food.). prednisone 20 mg tablet 20 mg PO DAILY tizanidine 4 mg tablet 4 mg PO Q8H PRN spironolactone 50 mg tablet 50 mg PO DAILY venlafaxine 37.5 mg capsule,extended release 24hr 37.5 mg PO DAILY trazodone 50 mg tablet 25 - 50 mg PO QHS PRN PRN (Reason: insomnia) Primary Care Provider: Ty Rocha Referrals: Ty Rocha MD [Primary Care Provider] - Print Language: Sinhala Disposition Disposition: Acute Care Hospital [facility]
[2025-05-10] MEDS: 0.9% Normal Saline (1000mL) 1,000 ML 125 ML IV ×2 (12:30→20:35)
--- NOTE | 2025-05-10 12:37 | CT_ITS ---
PROCEDURE: ABDOMEN/PELVIS W IV CONT ONLY 05/10/2025 REASON FOR EXAM: ABDOMINAL PAIN TECHNIQUE: ABDOMEN/PELVIS W IV CONT ONLY Coronal and Sagittal reconstruction series were provided. CONTRAST: Isovue 370 VOLUME: 90 mL One or more dose reduction techniques were used (e.g., Automated exposure control, adjustment of the mA and/or kV according to patient size, use of iterative reconstruction technique. RADIATION DOSE SUMMARY: CTDlvol: 33 mGy DLP: 1367 mGycm COMPARISON: None FINDINGS: Lung bases: Clear Liver: Normal Gallbladder: Normal Spleen: Normal Pancreas: Normal Adrenals: Normal Kidneys: Normal Bladder: Normal Reproductive Organs: Uterus is normal. IUD is present. Left ovary is unremarkable. Right ovary shows a mildly dilated, tubular structure suggesting hydrosalpinx. Some fluid is seen around the right adnexa and in the cul-de-sac. Bowel: Stomach is normal except for minimal sliding hiatus hernia. Small bowel is not dilated. However, there is qualitative thickening of nondilated loops of distal ileum. There is some congestion of the small bowel mesentery. No stricture or obstruction. This does not appear to involve the terminal ileum at this time but there is some submucosal fatty infiltration in the terminal ileum and proximal ascending colon that may be the sequelae of chronic inflammatory process. Appendix: Normal Lymph nodes: None appear enlarged. Vasculature: Normal Peritoneum / Retroperitoneum: No free air or mass. Bones: Lower lumbar facet hypertrophy CT/Abdomen/Pelvis W IV Cont ONLY IMPRESSION: 1. Very mild thickening, inflammation of several loops of distal ileum. No st ricture, pneumatosis or pneumoperitoneum. No obstruction. Findings suggestive of inflammatory bowel disease. 2. Hydrosalpinx on the right. Some fluid is seen around the right adnexa and in the cul-de-sac. Some of this may be related to the underlying adjacent bowel process. If symptoms are relatable to the pelvis /pelvic organs, ultrasound could be performed. Reading Location: [id number]
[2025-05-10 12:42] LABS: Hematocrit 42.2 % (37-47); Hemoglobin 14.2 g/dL (12.0-15.0); Immature Granulocytes Count 0.320 X10^3/uL (0.0-0.0); Mean Corp Hgb Conc 33.6 g/dL (32-36); Mean Corpuscular Volume 89.2 fL (81-99); Mean Platelet Vol. 9.9 fl (6.2-12.0); NRBC Flagged by Analyzer 0 % (0-5); Platelet Count 260 K/mm3 (150-450); RBC Distribution Width CV 15.1 % (11.6-14.6); RBC Distribution Width SD 49.6 fl (35.1-43.9); Red Blood Count 4.73 M/mm3 (4.2-5.4); White Blood Count 19.4 K/mm3 (4.4-11.0)
[2025-05-10 12:55] LABS: Internal QC Validated? YES +Cl - CLEAR BKGD; Pregnancy, Serum, hCG Quali. NEGATIVE Negative; Record Kit Lot#, Serum Preg. 0000962302
[2025-05-10 13:22] LABS: AST(SGOT) 26 U/L (<=31); Alanine Aminotransfer ALT/SGPT 22 U/L (<=34); Albumin, Serum 3.7 g/dL (3.5-5.0); Alkaline Phosphatase 86 U/L (35-104); Anion Gap 16 (5-15); BUN 16 mg/dL (4-19); BUN/Creat Ratio 17.0 RATIO (10-20); Calcium,Total 8.7 mg/dL (7.6-11.0); Carbon Dioxide 16.7 mmol/L (21.0-32.0); Chloride 100 mmol/L (98-108); Globulin 2.8 g/dL (2.2-4.2); Glucose 119 mg/dL (70-99); Potassium 4.9 mmol/L (3.3-5.1)
--- NOTE | 2025-05-10 13:30 | US_ITS ---
PROCEDURE: TRANSVAGINAL NON- 05/10/2025 REASON FOR EXAM: RULE OUT TORSION, HYDROSALPINX TECHNIQUE: TRANSVAGINAL NON- COMPARISON: Prior CT scan done earlier in the day. FINDINGS: Measurements: Uterus: 9.9 cm x 5.4 cm x 4.3 cm with a volume of 119.64 mL Endometrial Thickness: 6 mm. An IUD seen within the fundal portion of the endometrium. Right Ovary: 2.4 cm x 2 cm x 1.7 cm with a volume of 11.3 mL. Left Ovary: 3.3 x 3.3 cm x 2 cm with a volume of 5.09 mL. Uterus: Normal size, myometrial echotexture, and contour. Nabothian cyst is seen. Endometrium: Unremarkable. IUD is seen within the endometrium. Right ovary: Flow is seen to the right ovary. Findings suggestive of hydrosalpinx/pyosalpinx on the right side of the midline. The tube measures 1.8 cm in greatest dimension. Left ovary: Normal size and echotexture. Other: Moderate amount of free fluid in the pelvis. US/Transvaginal Non- IMPRESSION: Findings suggestive of right-sided hydrosalpinx with fluid in the cul-de-sac. IUD is seen within the endometrium. Reading Location: [id number]
[2025-05-10 14:05] LABS: Mucous, Urine 0 SEEN /hpf (<or=2+)
[2025-05-10 14:07] LABS: Color, Urine Yellow (Yellow); Glucose, Dipstick Normal (Normal); Ketone-Dipstick Negative (Negative); Leukocyte Esterase-Dipstick Negative /ul (Negative); Nitrite-Dipstick Negative (Negative); Occult Blood-Urine 250 /ul (Negative); Protein-Dipstick 15 mg/dl (Negative); Specific Gravity, Urine 1.005 (1.002-1.030); Urine Bilirubin Dipstick Negative (Negative)
[2025-05-10 14:12] LABS: Red Blood Cells-Urine 10-25 SEEN /hpf (0-5); Squamous Epithelial Cells - UA 0-5 SEEN /hpf (5-10)
[2025-05-10] MEDS: Piperacil/Tazobactam 4.5 GM in 0.9% Normal Saline (100mL MB+) 100 ML IV (15:32)
--- NOTE | 2025-05-10 15:57 | PCM.HP.STD ---
[facility] - General General Date of Service: 05/10/25 Chief Complaint: Abdominal pain HPI Narrative CHARLIE MARINELLI, is a 40 F who presents with a several day history of abdominal pain. Over the preceding days it was intermittent is more generalized and was having some fevers as well at home. Today it was far more intense and very debilitating to the point where it hurt her move. 60 presented to the emergency room for evaluation. She had a CAT scan that showed very mild thickening, inflammation of several loops of the distal ileum. No strictures, pneumatosis nor pneumoperitoneum. Findings suggestive of inflammatory bowel disease. Also noted hydrosalpinx on the right. Ultrasound performed showed findings suggestive of right sided hydrosalpinx with fluid in the cul-de-sac. IUD seen within the endometrium. The emergency room physician spoke with Dr. Aquino, of gynecology, who stated this is right more likely a chronic finding. Patient denies any history abdominal pain such as this in the past. PFSH Medical History Anxiety Alcohol use Arthritis Easy bruising Back pain Shortness of breath on exertion Numbness Wears glasses Loose, teeth Bipolar disorder Hidradenitis suppurativa DVT (deep venous thrombosis) Restless legs Migraine headache Smoker Home Medications ?Medication ?Instructions ?Recorded ?Last Taken ?Type naproxen 500 mg tablet 500 mg PO Q12H PRN pain 05/07/23 05/09/25 History prednisone 20 mg tablet 20 mg PO DAILY 05/10/25 05/10/25 History spironolactone 50 mg tablet 50 mg PO DAILY 05/10/25 05/09/25 History tizanidine 4 mg tablet 4 mg PO Q8H PRN 05/10/25 05/09/25 History trazodone 50 mg tablet 25 - 50 mg PO QHS PRN PRN insomnia 05/10/25 05/09/25 History venlafaxine 37.5 mg 37.5 mg PO DAILY 05/10/25 05/09/25 History capsule,extended release 24 hr Allergy/AdvReac Type Severity Reaction Status Date / Time No Known Allergies Allergy Verified 05/10/25 11:49 Surgical History History of discectomy History of dilatation and curettage Social History household members: none housing: house Smoking Status: Current every day smoker tobacco type: cigarettes substance use type: does not use ROS ROS Narrative All review of systems were negative except as mentioned above in the history of present illness and the other review of systems. Vital Signs Vital Signs Vital Signs: 05/10/25 11:47 05/10/25 14:53 05/10/25 15:00 Temperature 36.4 C L 38.4 C H 38.4 C H Temperature Source Oral Oral Oral Pulse Rate 87 94 68 Respiratory Rate 22 H 16 18 Blood Pressure 125/93 H 138/61 H 124/65 H Blood Pressure Mean 103 86 84 Pulse Ox 100 99 100 Oxygen Delivery Method Room Air Room Air Room Air Physical Exam Narrative - Physical Exam General: Alert, Oriented x3, Cooperative HEENT: Atraumatic, no icterus. Oral: Moist Mucosa, No Gingival or Mucosal Lesions/ Ulcerations Neck: Supple, No JVD, Negative Carotid Bruits Lungs: Clear to auscultation, Normal air movement Cardiovascular: Regular rate, Normal S1, Normal S2, No murmurs Abdomen: Diffusely tender. Had very extreme tenderness just turning on her side and became tearful. Tenderness seems to be more umbilical is the most severe. Extremities: No clubbing, No cyanosis, No edema Skin: No rashes, No breakdown Musculoskeletal: No Tenderness to Palpation of Joints or Extremities Neurological: Neuro grossly intact Psych/Mental Status: Anxious.. Moves all extremity spontaneously. Results Lab / Micro Data Attestation: I reviewed the patient's lab results. 05/10/25 12:29 05/10/25 12:29 Labs: Laboratory Results - last 24 hr 05/10/25 12:29: WBC 19.4 H, RBC 4.73, Hgb 14.2, Hct 42.2, MCV 89.2, MCH 30.0, MCHC 33.6, RDW Std Deviation 49.6 H, RDW Coeff of Chinmay 15.1 H, Plt Count 260, MPV 9.9, Immature Gran % (Auto) 1.700 H, Neut % (Auto) 82.7 H, Lymph % (Auto) 10.9 L, [place] % (Auto) 4.1, Eos % (Auto) 0.1, Baso % (Auto) 0.5, Absolute Neuts (auto) 16.0 H, Absolute Lymphs (auto) 2.11, Nucleated RBC % 0, Sodium 133, Potassium 4.9, Chloride 100, Carbon Dioxide 16.7 L, Anion Gap 16 H, BUN 16, Creatinine 0.97, Est GFR (MDRD) Non-Af 76, BUN/Creatinine Ratio 17.0, Glucose 119 H, Lactic Acid 2.5 H*, Calcium 8.7, Total Bilirubin 0.77, AST 26, ALT 22, Alkaline Phosphatase 86, Total Protein 6.6, Albumin 3.7, Globulin 2.8, Albumin/Globulin Ratio 1.3, Serum , Qual NEGATIVE 05/10/25 13:58: Urine Color Yellow, Urine Clarity Clear, Urine pH 7.0, Ur Specific [place] 1.005, Urine Protein 15 H, Urine Glucose (UA) Normal, Urine Ketones Negative, Urine Occult Blood 250 H, Urine Nitrite Negative, Urine Bilirubin Negative, Urine Urobilinogen Normal, Ur Leukocyte Esterase Negative, Urine RBC 10-25 SEEN, Urine WBC 0-5 SEEN, Ur Squamous Epith Cells 0-5 SEEN, Urine Bacteria RARE, Urine Mucus 0 SEEN Imaging Radiology Impression Abdomen/Pelvis CT 05/10/25 12:37 IMPRESSION: 1. Very mild thickening, inflammation of several loops of distal ileum. No stricture, pneumatosis or pneumoperitoneum. No obstruction. Findings suggestive of inflammatory bowel disease. 2. Hydrosalpinx on the right. Some fluid is seen around the right adnexa and in the cul-de-sac. Some of this may be related to the underlying adjacent bowel process. If symptoms are relatable to the pelvis/pelvic organs, ultrasound could be performed. Reading Location: [id number] Transvaginal US 05/10/25 13:30 IMPRESSION: Findings suggestive of right-sided hydrosalpinx with fluid in the cul-de-sac. IUD is seen within the endometrium. Reading Location: [id number] Assessment & Plan Assessment/Plan (1) Ileitis: PLAN: Infectious versus inflammatory versus ischemic, though favor inflammatory at this time. Continue with pip-tazo, to which she received the emergency room Consult gastroenterology for further evaluation and potential endoscopy. Patient with exquisite abdominal pain pain so we will aggressive regards to assisting in its management with scheduled acetaminophen, as needed ketorolac as well as as needed oxycodone and morphine. Clear liquid diet. IV fluids. (2) Hydrosalpinx: PLAN: Could be adjacent inflammation from the ileitis Will consult gynecology for input to see if this is because of her symptoms or if this is more of a chronic finding. PLAN: Plan Chronic conditions Hydradenitis suppurativa: Not active at this time. Obesity: Complicates care and recovery. VTE prophylaxis with SCDs. Case discussed with the patient's mother at bedside with patient's permission. Charges/Coding Visit Charges Inpatient E&M: 54616 Init Hosp L3
[2025-05-10 16:35] LABS: Reflex Lactate? Y
[2025-05-10 16:56] LABS: CRP 77.20 mg/L (0.0-3.0)
[2025-05-10] MEDS: 0.9% Normal Saline (1000mL) 1,000 ML 150 ML IV (17:01)
[2025-05-10] MEDS: 0.9% Saline Lock 10 ML Syringe IV ×3 (17:02→23:10)
[2025-05-10] MEDS: Polyethylene Glycol 3350 BOWEL PREP PO (18:26)
--- NOTE | 2025-05-10 19:05 | CON.PCM.GI_ITS ---
HPI Consult Data Date of Consult: 05/10/25 HPI Narrative HPI Narrative: CHARLIE MARINELLI, is a 40 F who presents several day history of abdominal pain. She admits that over the preceding days it was intermittent is more generalized and was having some fevers as well at home. Her current temperature is 102.4. She came to the hospital because today it was far more intense and very debilitating to the point where it hurt her move. She had a CAT scan that showed very mild thickening, inflammation of several loops of the distal ileum. No strictures, pneumatosis nor pneumoperitoneum. Findings suggestive of inflammatory bowel disease. Also noted hydrosalpinx on the right. Ultrasound performed showed findings suggestive of right sided hydrosalpinx with fluid in the cul-de-sac. IUD seen within the endometrium. The emergency room physician spoke with Dr. Aquino, of gynecology, who stated this is right more likely a chronic finding. Patient denies any history abdominal pain such as this in the past. PFSH Medical History Anxiety Alcohol use Arthritis Easy bruising Back pain Shortness of breath on exertion Numbness Wears glasses Loose, teeth Bipolar disorder Hidradenitis suppurativa DVT (deep venous thrombosis) Restless legs Migraine headache Smoker Home Medications ?Medication ?Instructions ?Recorded ?Last Taken ?Type naproxen 500 mg tablet 500 mg PO Q12H PRN pain 12/2505/09/25 History prednisone 20 mg tablet 20 mg PO DAILY 05/10/2503/29 History spironolactone 50 mg tablet 50 mg PO DAILY 05/10/25 History tizanidine 4 mg tablet 4 mg PO Q8H PRN 05/10/2502/26 History trazodone 50 mg tablet 25 - 50 mg PO QHS PRN PRN in somnia 05/10/25 05/09/25 History venlafaxine 37.5 mg 37.5 mg PO DAILY 05/10/25 History capsule,extended release 24 hr Allergy/AdvReac Type Severity Reaction Status Date / Time No Known Allergies Allergy Verified 05/10/25 11:49 Surgical History History of discectomy History of dilatation and curettage Social History household members: none housing: house Smoking Status: Current every day smoker tobacco type: cigarettes substance use type: does not use ROS Constitutional Constitutional: Denies fatigue, fever(s), poor appetite, weight gain or weight loss Gastrointestinal Gastrointestinal: Denies belching, bloating, change in bowel habits, change in stool character, chewing difficulty, coffee ground emesis, constipation, cramping, diarrhea, dyspepsia, dysphagia, early satiety, excessive flatus, fecal incontinence, heartburn, hematemesis, hematochezia, hemorrhoids, loose stools, melena, nausea, odynophagia, rectal bleeding, tenesmus, vomiting or weight changes Physical Exam Const alert, oriented x3, no apparent distress and healthy appearing General Appearance: cooperative GI normal to inspection, nondistended, normoactive bowel sounds, soft to palpation, non-tender and non-distended Percussion: normal to percussion Rectal Exam: deferred Lab / Micro Data 05/10/25 12:29 05/10/25 12:29 Labs: Laboratory Results - last 24 hr 05/10/25 12:29: WBC 19.4 H, RBC 4.73, Hgb 14.2, Hct 42.2, MCV 89.2, MCH 30.0, MCHC 33.6, RDW Std Deviation 49.6 H, RDW Coeff of Chinmay 15.1 H, Plt Count 260, MPV 9.9, Immature Gran % (Auto) 1.700 H, Neut % (Auto) 82.7 H, Lymph % (Auto) 10.9 L , [place] % (Auto) 4.1, Eos % (Auto) 0.1, Baso % (Auto) 0.5, Absolute Neuts (auto) 16.0 H, Absolute Lymphs (auto) 2.11, Nucleated RBC % 0, ESR Cancelled, Sodium 133, Potassium 4.9, Chloride 100, Carbon Dioxide 16.7 L, Anion Gap 16 H, BUN 16, Creatinine 0.97, Est GFR (MDRD) Non-Af 76, BUN/Creatinine Ratio 17.0, Glucose 119 H, Lactic Acid 2.5 H*, Calcium 8.7, Total Bilirubin 0.77, AST 26, ALT 22, Alkaline Phosphatase 86, C-React Prot Ext Range 77.20 H, Total Protein 6.6, Albumin 3.7, Globulin 2.8, Albumin/Globulin Ratio 1.3, Serum , Qual NEGATIVE 05/10/25 13:58: Urine Color Yellow, Urine Clarity Clear, Urine pH 7.0, Ur Specific [place] 1.005, Urine Protein 15 H, Urine Glucose (UA) Normal, Urine Ketones Negative, Urine Occult Blood 250 H, Urine Nitrite Negative, Urine Bilirubin Negative, Urine Urobilinogen Normal, Ur Leukocyte Esterase Negative, Urine RBC 10-25 SEEN, Urine WBC 0-5 SEEN, Ur Squamous Epith Cells 0-5 SEEN, Urine Bacteria RARE, Urine Mucus 0 SEEN 05/10/25 17:03: ESR 14, Lactic Acid 2.3 H* 05/10/25 18:50: TOREY-1 Antibody TNP, Sm (Mock) Antibody TNP, HYDRAULIC JACK MECHANIC Antibody TNP, Scl-70 Scleroderma Ab TNP, Antichromatin Antibodies TNP, Centromere B Antibody TNP Imaging Radiology Impression Abdomen/Pelvis CT 05/10/25 12:37 IMPRESSION: 1. Very mild thickening, inflammation of several loops of distal ileum. No stricture, pneumatosis or pneumoperitoneum. No obstruction. Findings suggestive of inflammatory bowel disease. 2. Hydrosalpinx on the right. Some fluid is seen around the right adnexa and in the cul-de-sac. Some of this may be related to the underlying adjacent bowel process. If symptoms are relatable to the pelvis/pelvic organs, ultrasound could be performed. Reading Location: [id number] Transvaginal US 05/10/25 13:30 IMPRESSION: Findings suggestive of right-sided hydrosalpinx with fluid in the cul-de-sac. IUD is seen within the endometrium. Reading Location: [id number] Assessment & Plan Assessment/Plan (1) Ileitis: (2) Hydrosalpinx: (3) Leukocytosis: (4) Abdominal pain: PLAN: 40-year-old female presenting with abdominal pain and fever. She reports associated symptoms of worsening abdominal pain over the last few days. She did have constipation over the last several days. She has no history of diarrhea. She has not had abdominal surgeries. She says that today it was far more intense and very debilitating to the point where it hurt her move. 60 presented to the emergency room for evaluation. She had a CAT scan that showed very mild thickening, inflammation of several loops of the distal ileum. No strictures, pneumatosis nor pneumoperitoneum. Findings suggestive of inflammatory bowel disease. Also noted hydrosalpinx on the right. Ultrasound performed showed findings suggestive of right sided hydrosalpinx with fluid in the cul-de-sac. IUD seen within the endometrium. The emergency room physician spoke with Dr. Aquino, of gynecology, who stated this is right more likely a chronic finding. Patient denies any history abdominal pain such as this in the past. she is on 20 mg of prednisone. Differential Diagnosis: * Ileitis (Terminal Ileitis):? This is a strong possibility given the CT findings. Causes include: * Crohn's Disease:?A chronic inflammatory bowel disease (IBD) that can affect any part of the digestive tract, with the ileum being commonly affected. * Infectious Enteritis/Ileitis:?Bacterial or viral infection causing inflammation of the small intestine. * Other causes:?Less common causes include reactive arthritis, lymphoma, and metastatic cancer. * Appendicitis:?Inflammation of the appendix, potentially causing right lower quadrant pain and fever. * Diverticulitis:?Although more commonly affecting the large intestine, inflammation of a Meckel's diverticulum can mimic appendicitis or ileitis. Further Diagnostic Evaluation: * Blood Tests:?[INSERT ORDERED BLOOD TESTS, e.g., ESR, CRP, stool studies for infection, inflammatory bowel disease markers (e.g., ASCA, pANCA) if Crohn's disease is suspected]. * Stool studies: To look for infectious causes of patient's ileitis. * Endoscopy/Colonoscopy with Biopsy:?To visualize the ileum and obtain tissue samples for definitive diagnosis and differentiation between infectious, inflammatory, and other potential causes. * MRE (Magnetic Resonance Enterography):?May be useful to further assess the extent and severity of inflammation in the small bowel if Crohn's disease is suspected. Treatment: * Clear liquid diet?pending further workup. * Intravenous Fluids:?For rehydration and to maintain fluid and electrolyte balance. * Analgesia:?To manage pain. * Antibiotics:?Continue empiric antibiotics may be considered if infection is suspected, while awaiting culture results. * Anti-inflammatory Medications:?Cautiously continue her corticosteroids. Charges/Coding Visit Charges Inpatient E&M: 21958 Init Hosp L3
[2025-05-10 19:58] LABS: CRP 113.00 mg/L (0.0-3.0)
[2025-05-10] MEDS: Piperacil/Tazobactam 3.375 GM in 0.9% Normal Saline (50mL MB+) 50 ML IV (23:03)
[2025-05-11] VITALS (9 sets, daily range): BP systolic 93–105; BP diastolic 44–57; PULSE 64–77; RESP 16–18; TEMP 36.4–37; O2SAT 96–99
[2025-05-11] MEDS: 0.9% Saline Lock 10 ML Syringe IV ×3 (03:50→16:07)
[2025-05-11 05:56] LABS: Hematocrit 33.6 % (37-47); Hemoglobin 11.6 g/dL (12.0-15.0); Immature Granulocytes Count 0.220 X10^3/uL (0.0-0.0); Mean Corp Hgb Conc 34.5 g/dL (32-36); Mean Corpuscular Volume 88.0 fL (81-99); Mean Platelet Vol. 9.5 fl (6.2-12.0); NRBC Flagged by Analyzer 0 % (0-5); Platelet Count 218 K/mm3 (150-450); RBC Distribution Width CV 15.1 % (11.6-14.6); RBC Distribution Width SD 49.1 fl (35.1-43.9); Red Blood Count 3.82 M/mm3 (4.2-5.4); White Blood Count 19.3 K/mm3 (4.4-11.0)
[2025-05-11 06:22] LABS: AST(SGOT) 11 U/L (<=31); Alanine Aminotransfer ALT/SGPT 16 U/L (<=34); Albumin, Serum 3.2 g/dL (3.5-5.0); Alkaline Phosphatase 67 U/L (35-104); Anion Gap 11 (5-15); BUN 16 mg/dL (4-19); BUN/Creat Ratio 17.7 RATIO (10-20); Calcium,Total 7.7 mg/dL (7.6-11.0); Carbon Dioxide 21.1 mmol/L (21.0-32.0); Chloride 103 mmol/L (98-108); Estimated Creatinine Clearance 110.12 ml/min (50-250); Globulin 2.2 g/dL (2.2-4.2); Glucose 101 mg/dL (70-99); Potassium 3.6 mmol/L (3.3-5.1)
[2025-05-11] MEDS: Piperacil/Tazobactam 3.375 GM in 0.9% Normal Saline (50mL MB+) 50 ML IV ×3 (06:22→21:53)
--- NOTE | 2025-05-11 06:56 | PCM.PN.HOSP ---
Reason for Visit Chief Complaint: Abdominal pain Subjective Subjective Patient is a 40-year-old lady who presented with abdominal pain with subjective fevers. Imaging studies obtained in the emergency department demonstrated thickening and inflammation of several loops of the distal ileum. Findings were suggestive of inflammatory bowel disease. Ultrasound also obtained demonstrated right-sided hydrosalpinx with fluid in the cul-de-sac. Admitted to the hospitalist service for subsequent management Objective Data Objective Data Vital Signs: Vital Signs Temp Pulse Resp BP Pulse Ox O2 Del Method 98.6 F 65 16 105/55 L 98 Room Air 05/11/25 03:49 05/11/25 03:49 05/11/25 03:49 05/11/25 03:49 05/11/25 03:49 05/11/25 03:49 Oxygen Delivery Method Room Air Weight: 117.48 kg Body Mass Index (BMI) 40.5 Intake & Output: Intake and Output for Last 24 Hours 05/09/25 05/10/25 05/11/25 23:59 23:59 23:59 Intake Total 1733.33 / 1733.33 50 / 50 Output Total 600 / 600 Balance 1733.33 / 1733.33 -550 / -550 Lab / Micro Data 05/11/25 05:40 05/11/25 05:40 Labs: Laboratory Results - last 24 hr 05/10/25 12:29: WBC 19.4 H, RBC 4.73, Hgb 14.2, Hct 42.2, MCV 89.2, MCH 30.0, MCHC 33.6, RDW Std Deviation 49.6 H, RDW Coeff of Chinmay 15.1 H, Plt Count 260, MPV 9.9, Immature Gran % (Auto) 1.700 H, Neut % (Auto) 82.7 H, Lymph % (Auto) 10.9 L, [place] % (Auto) 4.1, Eos % (Auto) 0.1, Baso % (Auto) 0.5, Absolute Neuts (auto) 16.0 H, Absolute Lymphs (auto) 2.11, Nucleated RBC % 0, ESR Cancelled, Sodium 133, Potassium 4.9, Chloride 100, Carbon Dioxide 16.7 L, Anion Gap 16 H, BUN 16, Creatinine 0.97, Est GFR (MDRD) Non-Af 76, BUN/Creatinine Ratio 17.0, Glucose 119 H, Lactic Acid 2.5 H*, Calcium 8.7, Total Bilirubin 0.77, AST 26, ALT 22, Alkaline Phosphatase 86, C-React Prot Ext Range 77.20 H, Total Protein 6.6, Albumin 3.7, Globulin 2.8, Albumin/Globulin Ratio 1.3, Serum , Qual NEGATIVE 05/10/25 13:58: Urine Color Yellow, Urine Clarity Clear, Urine pH 7.0, Ur Specific [place] 1.005, Urine Protein 15 H, Urine Glucose (UA) Normal, Urine Ketones Negative, Urine Occult Blood 250 H, Urine Nitrite Negative, Urine Bilirubin Negative, Urine Urobilinogen Normal, Ur Leukocyte Esterase Negative, Urine RBC 10-25 SEEN, Urine WBC 0-5 SEEN, Ur Squamous Epith Cells 0-5 SEEN, Urine Bacteria RARE, Urine Mucus 0 SEEN 05/10/25 17:03: ESR 14, Lactic Acid 2.3 H* 05/10/25 18:50: C-React Prot Ext Range 113.00 H, TOREY-1 Antibody TNP, Sm (Mock) Antibody TNP, COVERAGE SPECIALIST RN Antibody TNP, Scl-70 Scleroderma Ab TNP, Antichromatin Antibodies TNP, Centromere B Antibody TNP 05/11/25 05:40: WBC 19.3 H, RBC 3.82 L, Hgb 11.6 L, Hct 33.6 L, MCV 88.0, MCH 30.4, MCHC 34.5, RDW Std Deviation 49.1 H, RDW Coeff of [place] 15.1 H, Plt Count 218, MPV 9.5, Immature Gran % (Auto) 1.100 H, Neut % (Auto) 78.0 H, Lymph % (Auto) 15.9 L, [place] % (Auto) 4.0, Eos % (Auto) 0.7, Baso % (Auto) 0.3, Absolute Neuts (auto) 15.0 H, Absolute Lymphs (auto) 3.07, Nucleated RBC % 0, Sodium 135, Potassium 3.6, Chloride 103, Carbon Dioxide 21.1, Anion Gap 11, BUN 16, Creatinine 0.90, Estim Creat Clear Calc 110.12, Est GFR (MDRD) Non-Af 83, BUN/Creatinine Ratio 17.7, Glucose 101 H, Calcium 7.7, Total Bilirubin 1.30, AST 11, ALT 16, Alkaline Phosphatase 67, Total Protein 5.4 L, Albumin 3.2 L, Globulin 2.2, Albumin/Globulin Ratio 1.5 Micro: Microbiology 05/10/25 18:45 Urine, Clean Catch Chlamydia/Neisseria (PCR) - Final Radiography Diagnostic Testing: Radiology Impression Abdomen/Pelvis CT 05/10/25 12:37 IMPRESSION: 1. Very mild thickening, inflammation of several loops of distal ileum. No stricture, pneumatosis or pneumoperitoneum. No obstruction. Findings suggestive of inflammatory bowel disease. 2. Hydrosalpinx on the right. Some fluid is seen around the right adnexa and in the cul-de-sac. Some of this may be related to the underlying adjacent bowel process. If symptoms are relatable to the pelvis/pelvic organs, ultrasound could be performed. Reading Location: [id number] Transvaginal US 05/10/25 13:30 IMPRESSION: Findings suggestive of right-sided hydrosalpinx with fluid in the cul-de-sac. IUD is seen within the endometrium. Reading Location: [facility] Physical Exam Narrative GENERAL: cooperative HEENT: Atraumatic; normocephalic EYES; Anicteric, Normal Conjunctiva NECK; supple, normal thyroid, RESPIRATORY: Diminished to auscultation CARDIOVASCULAR: Regular S1 S2, GI: soft, normoactive bowel sounds, : No Renal angle tenderness; EXTREMITIES: No edema, no clubbing, MUSCULOSKELETAL: no muscle wasting NEURO: Awake; no lateralizing signs. SKIN: No Rash PSYCH; Flat affect Assessment & Plan Assessment/Plan (1) Hydrosalpinx: (2) Ileitis: (3) Inflammatory bowel disease: PLAN: Plan Patient is a 40-year-old lady who presented with abdominal pain with subjective fevers. Imaging studies obtained in the emergency department demonstrated thickening and inflammation of several loops of the distal ileum. Findings were suggestive of inflammatory bowel disease. Ultrasound also obtained demonstrated right-sided hydrosalpinx with fluid in the cul-de-sac. Admitted to the hospitalist service for subsequent management 1. Terminal ileitis ? Patient CT findings suggestive of inflammatory bowel disease. Patient has been admitted to regular nursing floor started on antibiotic therapy with piperacillin/tazobactam in addition to prednisone. Patient seen in consultation by Dr. Foley recommendations reviewed 2. Hydrosalpinx ? Consult placed to gynecology for input 3. Class III obesity with BMI of 40.6 ? Complicating patient's care 4. History of hidradenitis suppurativa ? Stable at this point 5. Anemia ? Secondary to chronic disorder monitoring H&H and transfuse if patient becomes symptomatic or hemoglobin falls below 7 6.Depression with anxiety ? Patient is on venlafaxine as well as trazodone continue 7. Tobacco dependence ? Counseled on cessation, offered nicotine patch for tobacco cravings 8 DVT prophylaxis ? Subcu Lovenox Charges/Coding Visit Charges Inpatient E&M: 10256 Subs Hosp L2
[2025-05-11] MEDS: 0.9% Normal Saline (1000mL) 1,000 ML 125 ML IV ×2 (09:23→20:12)
[2025-05-11] MEDS: Lactated Ringers 1,000 ML 15 ML IV (10:44)
--- NOTE | 2025-05-11 11:10 | PCM.PRE.AN2 ---
ASA Classification* ASA Classification ASA Classification: 3 and E Assessment & Plan Anesthesia* Anesthesia Assessment Anesthesia Assessment: Discussed sedation and/or anesthesia options, risks, benefits, and alternatives with patient/parents/legal guardian/POA. Questions invited. The patient/parents/legal guardian/POA seems to understand and agrees to proceed with anesthesia plan. Reviewed the physical assessment, medical history, allergy history and patient home medications list prior to surgery/procedure/anesthetic and documented any changes. Performed airway and anesthesia risk assessments. Anesthesia Type Anesthesia Type: MAC Anesthesia Focused Assessment* Temperature: 98.6 F Pulse Rate: 65 Blood Pressure: 105/55 Respiratory Rate: 16 Pulse Ox: 98 Airway Assessment Mouth opens: >3 cm Mallampati Score: II Labs Anesthesia Preop lab: CBC WBC 19.3 K/mm3 (4.4-11.0) H 05/11/25 05:40 05/11/25 RBC 3.82 M/mm3 (4.2-5.4) L 05/11/25 05:40 05/11/25 Hgb 11.6 g/dL (12.0-15.0) L 05/11/25 05:40 05/11/25 Hct 33.6 % (37-47) L 05/11/25 05:40 05/11/25 Plt Count 218 K/mm3 (150-450) 05/11/25 05:40 05/11/25 CHEMISTRY Potassium 3.6 mmol/L (3.3-5.1) 05/11/25 05:40 05/11/25 Sodium 135 mmol/L (133-145) 05/11/25 05:40 05/11/25 BUN 16 mg/dL (4-19) 05/11/25 05:40 05/11/25 Creatinine 0.90 mg/dL (0.70-1.20) 05/11/25 05:40 05/11/25 Glucose 101 mg/dL (70-99) H 05/11/25 05:40 05/11/25 TSH 1.03 uIU/mL (0.358-3.74) 03/26/15 10:32 03/26/15 COAG HCG, Quant < 1 mIU/mL (<9 non-preg) 12/11/14 00:10 12/11/14 Urine Test Negative Negative 04/29/24 06:10 04/29/24 Pre-Assessment Diagnosis/Proposed Procedure Planned Operative Procedure(s): egd colonoscopy Anesthesia History Anesthesia History - middleware consultant: Anesthesia History - middleware consultant Hx Hospitalization No 04/22/24 14:54 Any Problems With Anesthesia No 05/10/25 23:07 Cholinesterase deficiency No 05/10/25 23:07 You/Your Family Experience No 05/10/25 23:07 fever (hyperthermia) with Relationship Recent Exposure to Contagious No 05/10/25 23:07 Disease Does patient have nerve No 05/10/25 23:07 stimulator Patient instructed to have No 05/10/25 23:07 device shut off --Does patient have Pacemaker or ICD? When Was Last Pacemaker Check QUESTION #4 FULL TEXT: You/Your Family Experience fever (hyperthermia) with Anesthesia Last Oral Intake Last Oral intake: Last Oral Intake NPO since Meds taken in AM with sips of water? Meds patient instructed to take am of surgery PONV PONV - middleware consultant: PONV - middleware consultant Female HX of Motion Sickness HX of N/V After Surgery Non-Smoker Duration of Surgery greater than 60 minutes Number of Risk Factors PONV Score Height & Weight Height & Weight: Anesthesia: Height & Weight Height 5 ft 7 in 05/10/25 16:42 Weight: 117.48 kg 05/10/25 16:42 Body Mass Index (BMI) 40.5 05/10/25 16:42 Respiratory Assessment Respiratory Assessment - middleware consultant: Respiratory Tract Infection Hx - middleware consultant Hx Respiratory Tract Infection No 05/10/25 23:07 STOP Sleep Apnea STOP Sleep Apnea - middleware consultant: STOP Sleep Apnea - middleware consultant Hx Hypertension No 05/10/25 16:43 Hx Sleep Apnea No 05/10/25 16:43 CPAP BIPAP Do you snore loudly (louder No 05/10/25 16:43 than talking or can be heard Do you often feel tired/ Yes 05/10/25 16:43 fatigued/ sleepy during daytime? Has anyone observed you stop No 05/10/25 16:43 breathing during sleep? STOP Results Negative 05/10/25 16:43 QUESTION #5 FULL TEXT : Do you snore loudly (louder than talking or can be heard through closed doors)? Tobacco Use History Tobacco Use History - middleware consultant: Tobacco Use History - middleware consultant Tobacco Use Smoking Status Current every day smoker 05/10/25 17:17 Hx Tobacco Use Yes 05/10/25 16:43 Years Smoking 20 05/10/25 16:43 Packs Smoked per Day 0.5 05/10/25 16:43 Smoking Cessation Date was within the last 15 years Hx Smoking Cessation Date Hx Smoking Cessation Counseling Hematologic Medial History Hematologic Hx - middleware consultant: Hematologic Medical Hx - foot setter Hx of Blood Transfusion No 05/10/25 16:43 Hx of Transfusion in last 3 No 05/10/25 16:43 Months Date of Last Transfusion (if within last 3 months) Ever experience any problems No 05/10/25 16:43 with transfusion(s)? Specify any problems Hx of Preganancy in last 3 No 05/10/25 16:43 Months Nurse Filling Out Transfusion MLEACH2 05/10/25 16:43 & Questions: Date: 05/10/25 05/10/25 16:43 Time: 16:44 05/10/25 16:43 Patient unable to answer at this time (ie. confused, unrespo /Reproduction History /Reproductive History - middleware consultant: /Reproductive Hx- middleware consultant Hx Now No 05/10/25 23:07 Gestational Age (in weeks): EDC: Hx Hx Para Hx Section SAB No 05/10/25 23:07 Active Medications Active Medications: Current Medications Generic Name Dose Route Start Last Admin Trade Name Freq PRN Reason Stop Dose Admin Acetaminophen 1,000 mg 05/10/25 22:00 05/11/25 06:22 Acetaminophen 500 Mg Tablet PO 1,000 mg Q8 RONI Administration Enoxaparin Sodium 40 mg 05/11/25 10:00 Enoxaparin 60 Mg/0.6 Ml Syringe SC Q12 RONI Sodium Chloride 1,000 mls @ 125 mls/hr 05/10/25 12:15 05/11/25 09:23 IV 125 mls/hr .Q8H RONI Administration Piperacillin Sod/Tazobactam 50 mls @ 12.5 mls/hr 05/10/25 22:00 05/11/25 10:22 Sod 3.375 gm/ Sodium Chloride IV Infused Q8 RONI Infusion Lactated Ringer's 1,000 mls @ 15 mls/hr 05/11/25 10:45 05/11/25 10:44 IV 15 mls/hr .Q48H RONI Administration Ketorolac Tromethamine 15 mg 05/10/25 16:26 05/10/25 18:31 Ketorolac 15 Mg/Ml Vial IV 05/15/25 16:26 15 mg Q6H PRN PRN Administration Pain Score 1-10 Morphine Sulfate 2 - 4 mg 05/10/25 16:26 05/11/25 09:22 Morphine 2 Mg/Ml Syringe IV 2 mg Q3H PRN PRN Administration Pain Score 6-10 Nicotine 21 mg 05/10/25 21:50 05/10/25 23:03 Nicotine 21 Mg Patch TD 21 mg DAILY RONI Administration Ondansetron HCl 4 mg 05/10/25 16:26 05/10/25 18:36 Ondansetron 4 Mg/2 Ml Vial IV 4 mg Q8H PRN PRN Administration NAUSEA/VOMITING Oxycodone HCl 5 mg 05/10/25 16:26 05/11/25 06:22 Oxycodone 5 Mg Tablet PO 5 mg Q4H PRN PRN Administration Pain Score 4-10 Prednisone 20 mg 05/11/25 08:00 Prednisone 20 Mg [facility] Sodium Chloride 10 - 40 ml 05/10/25 16:50 05/11/25 09:22 0.9% Saline Lock 10 Ml Syringe IV 10 ml UD PRN Administration SALINE FLUSH Tizanidine HCl 4 mg 05/10/25 16:30 Tizanidine Hcl 2 Mg Tablet PO Q8H PRN PRN MUSCLE SPASMS Trazodone HCl 25 - 50 mg 05/10/25 16:26 Trazodone 50 Mg Tablet PO QHS PRN PRN insomnia Venlafaxine HCl 37.5 mg 05/11/25 10:00 Venlafaxine Xr 37.5 Mg Capsule PO DAILY [facility] PFSH Medical History Anxiety Alcohol use Arthritis Easy bruising Back pain Shortness of breath on exertion Numbness Wears glasses Loose, teeth Bipolar disorder Hidradenitis suppurativa DVT (deep venous thrombosis) Restless legs Migraine headache Smoker Home Medications ?Medication ?Instructions ?Recorded ?Last Taken ?Type naproxen 500 mg tablet 500 mg PO Q12H PRN pain 05/07/23 05/09/25 History prednisone 20 mg tablet 20 mg PO DAILY 05/10/25 05/10/25 History spironolactone 50 mg tablet 50 mg PO DAILY 05/10/25 05/09/25 History tizanidine 4 mg tablet 4 mg PO Q8H PRN 05/10/25 05/09/25 History trazodone 50 mg tablet 25 - 50 mg PO QHS PRN PRN insomnia 05/10/25 05/09/25 History venlafaxine 37.5 mg 37.5 mg PO DAILY 05/10/25 05/09/25 History capsule,extended release 24 hr Allergy/AdvReac Type Severity Reaction Status Date / Time No Known Allergies Allergy Verified 05/10/25 11:49 Surgical History History of discectomy History of dilatation and curettage Social History household members: none housing: house Smoking Status: Current every day smoker tobacco type: cigarettes substance use type: does not use Review of Systems (Anesthesia) ROS Narrative System reviewed and no additional complaints, except as documented.
--- NOTE | 2025-05-11 11:40 | CASEMGMT ---
Dx: Ileitis LACE:1 6-Clicks: 24 Medical record reviewed and patient evaluated for identification of discharge planning needs. Based on this review, at this time criteria are not present to indicate a need for discharge planning. Will remain available to assist with discharge planning needs as identified or requested.
--- NOTE | 2025-05-11 11:58 | OP.COLON_ITS ---
Patient Name: Tomeka Arguelles Procedure Date: 05/11/2025 11:30 AM Date of : 1985 Age: 40 Procedure: Colonoscopy Indications: Abdominal pain in the right lower quadrant, Abnormal CT of the GI tract Providers: Chirag Foley DO Medicines: Monitored Anesthesia Care Patient Profile: This is a 40 year old female. Refer to note in patient chart for documentation of history and physical. Last Colonoscopy: none. The patient's first colonoscopy is today. Complications: No immediate complications. Procedure: Pre-Anesthesia Assessment: - Prior to the procedure, a History and Physical was performed, and patient medications and allergies were reviewed. The patient is competent. The risks and benefits of the procedure and the sedation options and risks were discussed with the patient. All questions were answered and informed consent was obtained. Patient identification and proposed procedure were verified by the physician in the pre-procedure area. Mental Status Examination: alert and oriented. Airway Examination: normal oropharyngeal airway and neck mobility. Respiratory Examination: clear to auscultation. CV Examination: normal. Prophylactic Antibiotics: The patient does not require prophylactic antibiotics. Prior Anticoagulants: The patient has taken no anticoagulant or antiplatelet agents except for NSAID medication. ASA Grade Assessment: II - A patient with mild systemic disease. After reviewing the risks and benefits, the patient was deemed in satisfactory condition to undergo the procedure. The anesthesia plan was to use monitored anesthesia care (MAC). Immediately prior to administration of medications, the patient was re-assessed for adequacy to receive sedatives. The heart rate, respiratory rate, oxygen saturations, blood pressure, adequacy of pulmonary ventilation, and response to care were monitored throughout the procedure. The physical status of the patient was re-assessed after the procedure. After I obtained informed consent, the scope was passed under direct vision. Throughout the procedure, the patient's blood pressure, pulse, and oxygen saturations were monitored continuously. The pediatric colonoscope was introduced through the anus and advanced to the cecum, identified by appendiceal orifice and ileocecal valve. The colonoscopy was performed without difficulty. The patient tolerated the procedure well. The quality of the bowel preparation was poor. Scope In: 11:33:50 AM Scope Withdrawal Time 0 hours 3 minutes 22 seconds Scope Out: 11:49:58 AM Total Procedure Duration Time 0 hours 16 minutes 8 seconds Findings: Multiple small-mouthed diverticula were found in the recto-sigmoid colon and sigmoid colon. Extensive amounts of stool was found in the entire colon, precluding visualization. Lavage of the area was performed using greater than 500 mL, resulting in incomplete clearance with continued poor visualization. Fluid aspiration was performed through the scope suction channel. The amount of fluid collected was 70 mL. Sample(s) were sent for bacterial cultures. An area of mildly congested mucosa was found in the cecum. Biopsies were taken with a cold forceps for histology. Verification of patient identification for the specimen was done. Estimated blood loss was minimal. Impression: - Preparation of the colon was poor. - Diverticulosis in the recto-sigmoid colon and in the sigmoid colon. - Stool in the entire examined colon. Fluid aspiration performed. - Congested mucosa in the cecum. Biopsied. Recommendation: - Discharge patient to home. - Return patient to hospital [facility] for ongoing care. - Resume previous diet. - Continue present medications. - Await pathology results. - Repeat colonoscopy in 5 years for surveillance. Procedure Code(s): --- Professional --- 21330, Colonoscopy, flexible; with biopsy, single or multiple CPT copyright 2021 [employer]. All rights reserved. The codes documented in this report are preliminary and upon credit risk modeler review may be revised to meet current compliance requirements. Chirag Foley DO 05/11/2025 11:58:30 AM This report has been signed electronically. Number of Addenda: 0 Note Initiated On: 05/11/2025 11:30 AM
--- NOTE | 2025-05-11 11:59 | OP.PROVAT_ITS ---
05/11/2025 Ty Rocha [address] [place] [address] Re : Colonoscopy procedure for Tomeka Arguelles Dear Dr. Rocha This procedure was performed on May. My impressions and recommendations are as follows: Impressions : - Preparation of the colon was poor. - Diverticulosis in the recto-sigmoid colon and in the sigmoid colon. - Stool in the entire examined colon. Fluid aspiration performed. - Congested mucosa in the cecum. Biopsied. Recommendations : - Discharge patient to home. - Return patient to hospital [facility] for ongoing care. - Resume previous diet. - Continue present medications. - Await pathology results. - Repeat colonoscopy in 5 years for surveillance. My findings are described in the full procedure note, which is enclosed. If I can be of further assistance, please feel free to contact me at . Sincerely, Chirag Foley, 05/11/2025 11:58:30 AM This report has been signed electronically.
--- NOTE | 2025-05-11 12:00 | EGD_PTH ---
PATIENT: CHARLIE MARINELLI LOC: MS3 U#:[id number] AGE/SX: 40/F ROOM: VT324 RE05/10/[address]: Dr. Rogelio Sin MD : 1985 BED: 1 DIS: 05/12/2025 SPEC #: [id number] RECD: 05/11/25 14:27 STATUS: JHONNY REQ #: [id number] FLVAIA: 05/11/25 12:[address]: Chirag Foley DEPT: SURGICAL PATHOLOGY RECD BY: David Gupta ENTERED: 05/11/25 14:48 SP TYPE: EGD BIOPSY OTHR DR: MD Dr. Lisa Clarke MD Dr. Eric Jopperi, DO Dr. Victor Velasquez, MD Tissues: A - Pyloric sphincter B - Duodenum, NOS C - Gastric mucous membrane D - Cecum, NOS Procedures: Immunohistochemical Stains Surgery Specimen Level IV Comments: @ Ordering doctor for IMHI edited from to @ by CARMEN at 05/11/25 1448 @ Ordering doctor for SUIV edited from to @ by CARMEN at 05/11/25 1448 @ Submitting doctor edited from to @ by CARMEN at 05/11/25 1448 HEADER OPERATION: Colonoscopy, EGD and biopsy PRE-OP DIAGNOSIS: Abdominal pain and fever TISSUE SUBMITTED: A- Pyloric channel ulcer biopsy, B- Duodenum biopsy, C- Gastric body biopsy, D- Cecum biopsy MICROSCOPIC DIAGNOSIS A. Stomach, pyloric channel ulcer, biopsies: - Pyloric mucosa with chronic active inflammation B. Small intestine, duodenum: - Irregularly blunted villi with an increased mixed lymphoplasmacytic and eosinophilic inflammatory cell infiltrate in the lamina propria (See Comments) C. Stomach, gastric body: - Oxyntic mucosa with chronic active inflammation - An immunohistochemical stain for Helicobacter pylori is positive D. Large intestine, cecum: * Benign colonic mucosa without dysplasia COMMENT The histopathological features in Part B are etiologically nonspecific and the differential diagnosis includes sensitivity to gluten and non-gluten proteins, small intestinal bacterial overgrowth, stasis related changes, infection, protein calorie malnutrition, tropical sprue, and medication injury. If celiac disease is a clinical concern, additional studies, such as tTG-IgA, are recommended. MICROSCOPIC DESCRIPTION Slides are reviewed. All matched controls reacted appropriately. These tests were developed and their performance characteristics determined by [facility]. They may not have been cleared or approved by the U.S. Food and Drug Administration. The FDA has determined that such clearance or approval is not necessary. The above immunohistochemical/dualISH markers are viewed by the Pathologist. GROSS DESCRIPTION A. Received in fixative in one container labeled with the patient's name and designated Pyloric channel ulcer biopsy. The specimen consists of three irregular fragments of light keller soft tissue that measure 0.2 to 0.3 cm. The specimen is totally submitted in one cassette. B. Received in fixative in one container labeled with the patient's name and designated Duodenum biopsy. The specimen consists of three irregular fragments of light keller soft tissue that measure 0.1 to 0.3 cm. The specimen is totally submitted in one cassette. C. Received in fixative in one container labeled with the patient's name and designated Gastric body biopsy. The specimen consists of two irregular fragments of light keller soft tissue that measure 0.4 and 0.6 cm. The specimen is totally submitted in one cassette. D. Received in fixative in one container labeled with the patient's name and designated Cecum biopsy. The specimen consists of two irregular fragments of light keller soft tissue that measure 0.3 and 0.5 cm. The specimen is totally submitted in one cassette. NC 05/11/2025 CPT:81671m3,74136
--- NOTE | 2025-05-11 12:02 | OP.EGD_ITS ---
Patient Name: Tomeka Arguelles Procedure Date: 05/11/2025 11:01 AM Date of : 1985 Age: 40 Procedure: Upper GI endoscopy Indications: Epigastric abdominal pain, Functional Dyspepsia, Dyspepsia, Indigestion Providers: Chirag Foley DO Medicines: Monitored Anesthesia Care Patient Profile: This is a 40 year old female. Refer to note in patient chart for documentation of history and physical. Patient has symptoms. Complications: No immediate complications. Procedure: Pre-Anesthesia Assessment: - Prior to the procedure, a History and Physical was performed, and patient medications and allergies were reviewed. The patient is competent. The risks and benefits of the procedure and the sedation options and risks were discussed with the patient. All questions were answered and informed consent was obtained. Patient identification and proposed procedure were verified by the physician in the pre-procedure area. Mental Status Examination: alert and oriented. Airway Examination: normal oropharyngeal airway and neck mobility. Respiratory Examination: clear to auscultation. CV Examination: normal. ASA Grade Assessment: II - A patient with mild systemic disease. After reviewing the risks and benefits, the patient was deemed in satisfactory condition to undergo the procedure. The anesthesia plan was to use monitored anesthesia care (MAC). Immediately prior to administration of medications, the patient was re-assessed for adequacy to receive sedatives. The heart rate, respiratory rate, oxygen saturations, blood pressure, adequacy of pulmonary ventilation, and response to care were monitored throughout the procedure. The physical status of the patient was re-assessed after the procedure. After obtaining informed consent, the endoscope was passed under direct vision. Throughout the procedure, the patient's blood pressure, pulse, and oxygen saturations were monitored continuously. The pediatric colonoscope was introduced through the mouth, and advanced to the jejunum. Small bowel enteroscopy was deemed necessary. The upper GI endoscopy was accomplished without difficulty. The patient tolerated the procedure well. Scope In: 11:24:35 AM Scope Out: 11:30:18 AM Total Procedure Duration Time 0 hours 5 minutes 43 seconds Findings: Diffuse, yellow plaques were found in the entire esophagus. Three non-bleeding cratered gastric ulcers with no stigmata of bleeding were found in the prepyloric region of the stomach and at the pylorus. The largest lesion was 5 mm in largest dimension. Biopsies were taken with a cold forceps for histology. Verification of patient identification for the specimen was done. Estimated blood loss was minimal. No gross lesions were noted in the entire examined duodenum. Impression: - Esophageal plaques were found, consistent with candidiasis. - Non-bleeding gastric ulcers with no stigmata of bleeding. Biopsied. - No gross lesions in the entire examined duodenum. Recommendation: - Discharge patient to home. - [Diet Recommendation] [Duration]. - Continue present medications. - Await pathology results. - Nystatin suspension 100,000 units PO QID for 7 weeks. - Use sucralfate tablets 1 gram PO QID for 2 weeks. Procedure Code(s): --- Professional --- 69414, Small intestinal endoscopy, enteroscopy beyond second portion of duodenum, not including ileum; with biopsy, single or multiple CPT copyright 2021 [employer]. All rights reserved. The codes documented in this report are preliminary and upon cable television program director review may be revised to meet current compliance requirements. Chirag Foley DO 05/11/2025 12:01:56 PM This report has been signed electronically. Number of Addenda: 0 Note Initiated On: 05/11/2025 11:01 AM
--- NOTE | 2025-05-11 12:02 | OP.PROVAT_ITS ---
05/11/2025 Ty Rocha [address] [place] [address] Re : Upper GI endoscopy procedure for Tomeka Arguelles Dear Dr. Rocha This procedure was performed on May. My impressions and recommendations are as follows: Impressions : - Esophageal plaques were found, consistent with candidiasis. - Non-bleeding gastric ulcers with no stigmata of bleeding. Biopsied. - No gross lesions in the entire examined duodenum. Recommendations : - Discharge patient to home. - [Diet Recommendation] [Duration]. - Continue present medications. - Await pathology results. - Nystatin suspension 100,000 units PO QID for 7 weeks. - Use sucralfate tablets 1 gram PO QID for 2 weeks. My findings are described in the full procedure note, which is enclosed. If I can be of further assistance, please feel free to contact me at . Sincerely, Chirag Foley, 05/11/2025 12:01:56 PM This report has been signed electronically.
--- NOTE | 2025-05-11 12:14 | PCM.POST.ANE ---
Anesthesia: Postop Eval I Current Vital Signs Temperature: 97.6 F Pulse Rate: 64 Blood Pressure: 97/44 Respiratory Rate: 16 Pulse Ox: 99 Oxygen Delivery Method: Room Air Assessment Airway patent: Yes Spontaneous unlabored respirations: Yes Mental status: Awake nausea: No Vomiting: No Anesthesia Complication: No Fluid Hydration Crystalloid volume administer (ml): 700 Total IV fluid infused: 700 Progress Note Anesthesia document: Postop Eval 1 completed: Yes
[2025-05-12 03:21] VITALS: BP 123/68; PULSE 61; RESP 16; TEMP 36.6; O2SAT 100
[2025-05-12 05:07] LABS: HEPATITIS B SURFACE AG Negative (Negative); Hep C Antibodies Non Reactive (Non Reactive)
[2025-05-12 05:55] VITALS: BP 118/62; PULSE 65; RESP 16
[2025-05-12] MEDS: 0.9% Normal Saline (1000mL) 1,000 ML 125 ML IV (05:57)
[2025-05-12] MEDS: Piperacil/Tazobactam 3.375 GM in 0.9% Normal Saline (50mL MB+) 50 ML IV (06:01)
--- NOTE | 2025-05-12 07:19 | PCM.PN.HOSP ---
Reason for Visit Chief Complaint: Abdominal pain Subjective Subjective Patient underwent EGD and colonoscopy results as documented below. Plan is for patient to be assessed for possible discharge. Patient has elevated WBC count however this is attributable to patient being on steroids Objective Data Objective Data Vital Signs: Vital Signs Temp Pulse Resp BP Pulse Ox O2 Del Method 97.9 F 65 16 118/62 100 Room Air 05/12/25 03:21 05/12/25 05:55 05/12/25 05:55 05/12/25 05:55 05/12/25 03:21 05/12/25 03:21 Oxygen Delivery Method Room Air Weight: 117.48 kg Body Mass Index (BMI) 40.5 Intake & Output: Intake and Output for Last 24 Hours 05/10/25 05/11/25 05/12/25 23:59 23:59 23:59 Intake Total 1733.33 / 1733.33 2167.92 / 2167.92 1050 / 1050 Output Total 603 / 603 Balance 1733.33 / 1733.33 1564.92 / 1564.92 1050 / 1050 Lab / Micro Data 05/12/25 07:35 05/11/25 05:40 Labs: Laboratory Results - last 24 hr 05/10/25 17:03: Hepatitis A IgM Ab Negative, Hep Bs Antigen Negative, Hep B Core IgM Ab Negative, Hepatitis C Ab (EIA) Non Reactive, Hep C Ab Comment Comment Micro: Microbiology 05/11/25 11:59 Stool Enteric Bacteriology - Final 05/10/25 18:45 Urine, Clean Catch Chlamydia/Neisseria (PCR) - Final Physical Exam Narrative GENERAL: cooperative HEENT: Atraumatic; normocephalic EYES; Anicteric, Normal Conjunctiva NECK; supple, normal thyroid, RESPIRATORY: Diminished to auscultation CARDIOVASCULAR: Regular S1 S2, GI: soft, normoactive bowel sounds, : No Renal angle tenderness; EXTREMITIES: No edema, no clubbing, MUSCULOSKELETAL: no muscle wasting NEURO: Awake; no lateralizing signs. SKIN: No Rash PSYCH; Flat affect Assessment & Plan Assessment/Plan (1) Hydrosalpinx: (2) Ileitis: (3) Inflammatory bowel disease: PLAN: Plan Patient is a 40-year-old lady who presented with abdominal pain with subjective fevers. Imaging studies obtained in the emergency department demonstrated thickening and inflammation of several loops of the distal ileum. Findings were suggestive of inflammatory bowel disease. Ultrasound also obtained demonstrated right-sided hydrosalpinx with fluid in the cul-de-sac. Admitted to the hospitalist service for subsequent management 1. Terminal ileitis ? Patient CT findings suggestive of inflammatory bowel disease. Patient has been admitted to regular nursing floor started on antibiotic therapy with piperacillin/tazobactam in addition to prednisone. Patient seen in consultation by Dr. Foley recommendations reviewed 05/12/2025; patient underwent EGD and colonoscopy results are as EGD - Esophageal plaques were found, consistent with candidiasis. Non-bleeding gastric ulcers with no stigmata of bleeding. Biopsied. No gross lesions in the entire examined duodenum. Colonoscopy - Preparation of the colon was poor. Diverticulosis in the recto-sigmoid colon and in the sigmoid colon. Stool in the entire examined colon. Fluid aspiration performed. Congested mucosa in the cecum. Biopsied. 2. Hydrosalpinx ? Consult placed to gynecology for input ? 05/12/2025; did discuss with patient regarding follow-up with her [employer] as outpatient 3. Class III obesity with BMI of 40.6 ? Complicating patient's care 4. History of hidradenitis suppurativa ? Stable at this point 5. Anemia ? Secondary to chronic disorder monitoring H&H and transfuse if patient becomes symptomatic or hemoglobin falls below 7 6.Depression with anxiety ? Patient is on venlafaxine as well as trazodone continue 7. Tobacco dependence ? Counseled on cessation, offered nicotine patch for tobacco cravings 8 DVT prophylaxis ? Subcu Lovenox Charges/Coding Visit Charges Inpatient E&M: 92353 Subs Hosp L2
[2025-05-12 07:59] LABS: Hematocrit 32.7 % (37-47); Hemoglobin 11.3 g/dL (12.0-15.0); Immature Granulocytes Count 0.190 X10^3/uL (0.0-0.0); Mean Corp Hgb Conc 34.6 g/dL (32-36); Mean Corpuscular Volume 87.9 fL (81-99); Mean Platelet Vol. 9.6 fl (6.2-12.0); NRBC Flagged by Analyzer 0 % (0-5); Platelet Count 219 K/mm3 (150-450); RBC Distribution Width CV 14.9 % (11.6-14.6); RBC Distribution Width SD 48.1 fl (35.1-43.9); Red Blood Count 3.72 M/mm3 (4.2-5.4); White Blood Count 20.9 K/mm3 (4.4-11.0)
[2025-05-12 08:00] VITALS: BP 109/59; PULSE 55; RESP 17; TEMP 36.4; O2SAT 99
--- NOTE | 2025-05-12 08:49 | DS.PCM_ITS ---
Providers Date of Admission: 05/10/25 Date of Discharge: 05/12/25 Primary Care Physician: Dr. Ty Rocha MD Consultations 05/10/25 16:26 Consult: Gastroenterology Routine Consulting Provider: [facility] Reason for Consult: ilietitis EMERGENT Consult: No Notified: Yes Date Notified: 05/10/25 Time Notified: 15:44 Method of Notification: ED Physician Initiated Consult: [facility] Routine Consulting Provider: Lisa Cardenas Reason for Consult: hydrosalpinx EMERGENT Consult: No Notified: Yes Date Notified: 05/10/25 Time Notified: 15:45 Method of Notification: ED Physician Initiated Reason For Visit: ILIETITIS Diagnosis Discharge Diagnosis (1) Hydrosalpinx: Status: Acute Code(s): N70.11 - Chronic salpingitis (2) Ileitis: Status: Acute Code(s): K52.9 - Noninfective gastroenteritis and colitis, unspecified (3) Inflammatory bowel disease: Status: Acute Code(s): K52.9 - Noninfective gastroenteritis and colitis, unspecified Plan Patient is a 40-year-old lady who presented with abdominal pain with subjective fevers. Imaging studies obtained in the emergency department demonstrated thickening and inflammation of several loops of the distal ileum. Findings were suggestive of inflammatory bowel disease. Ultrasound also obtained demonstrated right-sided hydrosalpinx with fluid in the cul-de-sac. Admitted to the hospitalist service for subsequent management 1. Terminal ileitis ? Patient CT findings suggestive of inflammatory bowel disease. Patient has been admitted to regular nursing floor started on antibiotic therapy with piperacillin/tazobactam in addition to prednisone. Patient seen in consultation by Dr. Foley recommendations reviewed 05/12/2025; patient underwent EGD and colonoscopy results are as EGD - Esophageal plaques were found, consistent with candidiasis. Non-bleeding gastric ulcers with no stigmata of bleeding. Biopsied. No gross lesions in the entire examined duodenum. Colonoscopy - Preparation of the colon was poor. Diverticulosis in the recto-sigmoid colon and in the sigmoid colon. Stool in the entire examined colon. Fluid aspiration performed. Congested mucosa in the cecum. Biopsied. 2. Hydrosalpinx ? Consult placed to gynecology for input ? 05/12/2025; did discuss with patient regarding follow-up with her [facility] as outpatient 3. Class III obesity with BMI of 40.6 ? Complicating patient's care 4. History of hidradenitis suppurativa ? Stable at this point 5. Anemia ? Secondary to chronic disorder monitoring H&H and transfuse if patient becomes symptomatic or hemoglobin falls below 7 6.Depression with anxiety ? Patient is on venlafaxine as well as trazodone continue 7. Tobacco dependence ? Counseled on cessation, offered nicotine patch for tobacco cravings 8 DVT prophylaxis ? Subcu Lovenox Medications at Discharge Home Medications naproxen 500 mg tablet 500 mg PO Q12H PRN pain 05/07/23 prednisone 20 mg tablet 20 mg PO DAILY 05/10/25 spironolactone 50 mg tablet 50 mg PO DAILY 05/10/25 tizanidine 4 mg tablet 4 mg PO Q8H PRN 05/10/25 trazodone 50 mg tablet 25 - 50 mg PO QHS PRN PRN insomnia 05/10/25 venlafaxine 37.5 mg capsule,extended release 24 hr 37.5 mg PO DAILY 05/10/25 acetaminophen 500 mg tablet 1,000 mg (2 x 500 mg) PO Q8 #0 tabs 05/12/25 amoxicillin 875 mg-potassium clavulanate 125 mg tablet 1 tab PO BID 14 days #28 tabs 05/12/25 nystatin 100,000 unit/mL oral suspension 1 ml PO .QID 7 weeks #200 mL 05/12/25 oxycodone 5 mg tablet 5 mg PO Q4H PRN PRN Pain Score 4-10 4 days #16 tabs 05/12/25 sucralfate 1 gram tablet 1 g PO Q6H 14 days #56 tabs 05/12/25 Hospital Course Summary of Care Provided Minutes Spent on Discharge: 35 Physical Exam Narrative GENERAL: cooperative HEENT: Atraumatic; normocephalic EYES; Anicteric, Normal Conjunctiva NECK; supple, normal thyroid, RESPIRATORY: Diminished to auscultation CARDIOVASCULAR: Regular S1 S2, GI: soft, normoactive bowel sounds, : No Renal angle tenderness; EXTREMITIES: No edema, no clubbing, MUSCULOSKELETAL: no muscle wasting NEURO: Awake; no lateralizing signs. SKIN: No Rash PSYCH; Flat affect Weight / BMI Weight Weight: 117.48 kg Body Mass Index (BMI) 40.5 ABG / Lab / Microbiology Data 05/12/25 07:35 05/11/25 05:40 Laboratory: Laboratory Results - last 24 hr 05/10/25 17:03: Hepatitis A IgM Ab Negative, Hep Bs Antigen Negative, Hep B Core IgM Ab Negative, Hepatitis C Ab (EIA) Non Reactive, Hep C Ab Comment Comment 05/12/25 07:35: WBC 20.9 H, RBC 3.72 L, Hgb 11.3 L, Hct 32.7 L, MCV 87.9, MCH 30.4, MCHC 34.6, RDW Std Deviation 48.1 H, RDW Coeff of Chinmay 14.9 H, Plt Count 219, MPV 9.6, Immature Gran % (Auto) 0.900, Neut % (Auto) 89.9 H, Lymph % (Auto) 5.6 L, [place] % (Auto) 3.4, Eos % (Auto) 0.0, Baso % (Auto) 0.2, Absolute Neuts (auto) 18.8 H, Absolute Lymphs (auto) 1.18, Nucleated RBC % 0 Microbiology: Microbiology 05/11/25 11:59 Stool Enteric Bacteriology - Final 05/10/25 18:45 Urine, Clean Catch Chlamydia/Neisseria (PCR) - Final D/C Instructions Discharge Activity: Return to Normal Activity Call your doctor if you observe: Fever of 101 or Higher, Shortness of breath, Fainting spells and Chest pain DC O2, CPAP, BIPAP Needs Home O2 Discharge instructions: No Meaningful Use Info Meaningful Use Meaningful Use Diagnoses (Choose all that apply): None applicable Discharge Plan Admission Admit Date/Time: 05/10/25 15:41 Attending Provider: Rogelio Sin Primary Care Provider: Ty Rocha Consulting Providers: Niya Cardenas Eric Discharge Orders/Prescriptions Prescriptions: New oxycodone 5 mg Tablet 5 mg PO Q4H PRN PRN (Reason: Pain Score 4-10) 4 Days Qty: 16 0RF acetaminophen 500 mg Tablet 1,000 mg PO Q8 Qty: 0 0RF nystatin 100,000 unit/mL suspension 1 ml PO .QID 49 Days Qty: 200 0RF Rx Instructions: swish and swallow sucralfate 1 gram tablet 1 g PO Q6H 14 Days Qty: 56 0RF amoxicillin-pot clavulanate 875-125 mg tablet 1 tab PO BID 14 Days Qty: 28 0RF Continued naproxen 500 mg tablet 500 mg PO Q12H PRN (Reason: pain) Patient Comments: Take 1 tablet by mouth twice daily as needed for pain (pain/inflammation, take with food.). prednisone 20 mg tablet 20 mg PO DAILY tizanidine 4 mg tablet 4 mg PO Q8H PRN spironolactone 50 mg tablet 50 mg PO DAILY venlafaxine 37.5 mg capsule,extended release 24hr 37.5 mg PO DAILY trazodone 50 mg tablet 25 - 50 mg PO QHS PRN PRN (Reason: insomnia) Referrals / Follow Up: Lsia Cardenas MD [Med Staff - Active Staff] - In 1 Week Chirag Foley DO [Med Staff - Active Staff] - Within 1 Month Ty Rocha MD [Primary Care Provider] - Within 1 Week Disposition Disposition (needs filled in before D/C Order can be placed): Home, Self Care Charges/Coding Visit Charges Inpatient E&M: 46785 Disch Hosp >30min
[2025-05-12 09:17] LABS: Anion Gap 10 (5-15); BUN 18 mg/dL (4-19); BUN/Creat Ratio 21.1 RATIO (10-20); Calcium,Total 8.7 mg/dL (7.6-11.0); Carbon Dioxide 20.6 mmol/L (21.0-32.0); Chloride 104 mmol/L (98-108); Estimated Creatinine Clearance 117.99 ml/min (50-250); Glucose 120 mg/dL (70-99); Magnesium 2.4 mg/dL (1.5-2.2); Potassium 4.5 mmol/L (3.3-5.1)
[2025-05-12 13:08] LABS: Anti-Chromatin <0.2 AI (0.0-0.9); Anti-Jo <0.2 AI (0.0-0.9); Anti-dsDNA Ab <1 IU/mL (0-9); SJOGREN'S Anti-SS-A test < 0.2 AI (0.0-0.9); SJOGREN'S Anti-SS-B test < 0.2 AI (0.0-0.9)
[2025-05-12 18:08] LABS: Cytoplasmic Ab (C-ANCA) <1:20 titer (Neg:<1:20); Perinuclear Ab (P-ANCA) <1:20 titer (Neg:<1:20)
--- NOTE | 2025-05-15 01:26 | NURSING ---
Lab called this floor to inform us of positive blood culture. This Rn spoke with Dr. Chirinos at this time to inform her of the results. Dr. Chirinos aware and will address it.
--- NOTE | 2025-05-15 01:38 | PCM.HOSP.N ---
Hospitalist Note MS3 Charge notified hospitalist of a reported positive blood culture. Called and discussed with lab and they noted 05/10/25 + blood culture only one of the 2 cultures with anaerobic bottle positive with GPR (1440 culture). Possibly could be contaminant at this point especially given timeline, both aerobic cultures have remained negative. Microbiology noted they would reevaluate it in the a.m. and if any concerning findings were noted would notify the service.
[2025-05-15 15:08] LABS: Albumin 3.0 g/dL (2.9-4.4); Gamma Globulin 0.9 g/dL (0.4-1.8); Immunoglobulin A 159 mg/dL (87-352); Immunoglobulin G 755 mg/dL (586-1602); Immunoglobulin M 81 mg/dL (26-217); PROEL- TOTAL PROTEIN 5.8 g/dL (6.0-8.5)
[2025-05-16 06:08] LABS: QNTFERON TB Mitogen Value > 10.00 IU/mL (.); QNTFERON TB Nil Value 0.01 IU/mL (.); QNTFERON TB1+ Ag Value 0.01 IU/mL (.); QNTFERON TB2+ Ag Value 0.01 IU/mL (.); QNTIFERON TB Positive Criteria Negative (Negative)
[2025-05-25 14:09] LABS: ACCA 3 units (0-90); ALCA 8 units (0-60); AMCA 15 units (0-100)
== END 2025-05-12 10:55 | disposition home or self-care (01) | DRG 249 ==
LOC: ED 15:38 → MS3 16:02
PROVIDERS: Internal Medicine Gastroenterology; Emergency Provider Emergency Medicine; PCP Internal Medicine; Visit Provider Internal Medicine
PROC: 0DJD8ZZ Inspection of Lower Intestinal Tract, Via Natural or Artificial Opening Endoscopic (ICD-10-PCS; CPT 45378; principal; 2025-05-11 11:55)
DX: K52.9 Noninfective gastroenteritis and colitis, unspecified (principal); B37.81 Candidal esophagitis; F31.9 Bipolar disorder, unspecified; E66.813 Obesity, class 3; D63.8 Anemia in other chronic diseases classified elsewhere; G25.81 Restless legs syndrome; K25.9 Gastric ulcer, unspecified as acute or chronic, without hemorrhage or perforation; F17.210 Nicotine dependence, cigarettes, uncomplicated; F41.8 Other specified anxiety disorders; L73.2 Hidradenitis suppurativa; D72.829 Elevated white blood cell count, unspecified; Z68.41 Body mass index [BMI] 40.0-44.9, adult; K57.30 Diverticulosis of large intestine without perforation or abscess without bleeding; K29.50 Unspecified chronic gastritis without bleeding; T38.0X5A Adverse effect of glucocorticoids and synthetic analogues, initial encounter; N70.11 Chronic salpingitis; Z97.5 Presence of (intrauterine) contraceptive device; Z86.718 Personal history of other venous thrombosis and embolism; Z79.899 Other long term (current) drug therapy
CPT/HCPCS: 36415; 74177; 76830; 80048; 80053; 80074; 81001; 82784; 83516; 83605; 83630; 83735; 84100; 84165; 84703; 85025; 85652; 86036; 86037; 86140; 86225; 86235; 86255; 86334; 86480; 86671; 87040; 87177; 87209; 87491; 87493; 87506; 87591; 88305; 88342; 99283; 99406; Q9967; A4216; J2405

== ENCOUNTER → 2025-05-16 | Outpatient (CLI) | payer MEDICAID, SELFPAY ==
[2025-05-16 09:24] LABS: Hematocrit 37.3 % (37-47); Hemoglobin 12.6 g/dL (12.0-15.0); Immature Granulocytes Count 0.790 X10^3/uL (0.0-0.0); Mean Corp Hgb Conc 33.8 g/dL (32-36); Mean Corpuscular Volume 87.4 fL (81-99); Mean Platelet Vol. 9.0 fl (6.2-12.0); NRBC Flagged by Analyzer 0 % (0-5); POSITIVE DIFFERENTIAL YES; POSITIVE MORPHOLOGY YES; Platelet Count 341 K/mm3 (150-450); RBC Distribution Width CV 15.1 % (11.6-14.6); RBC Distribution Width SD 48.2 fl (35.1-43.9); Red Blood Count 4.27 M/mm3 (4.2-5.4); White Blood Count 16.9 K/mm3 (4.4-11.0)
[2025-05-16 09:34] LABS: Differential Indicated SCAN CRITERIA MET
[2025-05-16 10:15] LABS: Reactive Lymphocyte 2+
[2025-05-16 10:27] LABS: AST(SGOT) 19 U/L (<=31); Alanine Aminotransfer ALT/SGPT 27 U/L (<=34); Albumin, Serum 3.7 g/dL (3.5-5.0); Alkaline Phosphatase 70 U/L (35-104); Anion Gap 12 (5-15); BUN 18 mg/dL (4-19); BUN/Creat Ratio 19.7 RATIO (10-20); Calcium,Total 9.1 mg/dL (7.6-11.0); Carbon Dioxide 23.5 mmol/L (21.0-32.0); Chloride 103 mmol/L (98-108); Globulin 2.4 g/dL (2.2-4.2); Glucose 97 mg/dL (70-99); Potassium 4.0 mmol/L (3.3-5.1)
== END | disposition home or self-care (01) ==
LOC: LAB 08:41
PROVIDERS: PCP Internal Medicine; Referring Provider Student in an Organized Health Care Education/Training Program; Visit Provider Student in an Organized Health Care Education/Training Program
DX: K52.9 Noninfective gastroenteritis and colitis, unspecified (principal); R10.9 Unspecified abdominal pain
CPT/HCPCS: 36415; 80053; 85025

== ENCOUNTER 2025-05-24 09:43 | Day surgery (SDC) | payer MEDICAID, SELFPAY ==
[2025-05-24] VITALS (9 sets, daily range): BP systolic 106–141; BP diastolic 61–81; PULSE 59–76; RESP 14–18; TEMP 36.1–36.4; O2SAT 99–100; BMI 38.3
--- NOTE | 2025-05-24 10:16 | PRE.ANES_ITS ---
ASA Classification* ASA Classification ASA Classification: 2 Assessment & Plan Anesthesia* Anesthesia Assessment Anesthesia Assessment: Discussed sedation and/or anesthesia options, risks, benefits, and alternatives with patient/parents/legal guardian/POA. Questions invited. The patient/parents/legal guardian/POA seems to understand and agrees to proceed with anesthesia plan. Reviewed the physical assessment, medical history, allergy history and patient home medications list prior to surgery/procedure/anesthetic and documented any changes. Performed airway and anesthesia risk assessments. Anesthesia Type Anesthesia Type: MAC History Source History Obtained from:: Patient and Chart Anesthesia Focused Assessment* Temperature: 97.0 F Pulse Rate: 76 Blood Pressure: 141/81 Respiratory Rate: 14 Pulse Ox: 100 Oxygen Delivery Method: Room Air Airway Assessment Mouth opens: >3 cm Mallampati Score: IV Teeth Condition: Caps/Crowns (Patient has several crowns. They are tight.) Neck Range of motion (ROM): Limited ROM (Slight Decrease) Labs Anesthesia Preop lab: CBC WBC 16.9 K/mm3 (4.4-11.0) H 05/16/25 08:45 5 RBC 4.27 M/mm3 (4.2-5.4) 05/16/25 08:45 05/16/25 Hgb 12.6 g/dL (12.0-15.0) 05/16/25 08:45 05/16/25 Hct 37.3 % (37-47) 05/16/25 08:45 05/16/25 Plt Count 341 K/mm3 (150-450) 05/16/25 08:45 05/16/25 CHEMISTRY Potassium 4.0 mmol/L (3.3-5.1) 05/16/25 08:45 05/16/25 Sodium 138 mmol/L (133-145) 05/16/25 08:45 05/16/25 Magnesium 2.4 mg/dL (1.5-2.2) H 05/12/25 07:35 05/12/25 Phosphorus 2.6 mg/dL (2.7-4.5) L 05/12/25 07:35 05/12/25 BUN 18 mg/dL (4-19) 05/16/25 08:45 05/16/25 Creatinine 0.93 mg/dL (0.70-1.20) 05/16/25 08:45 05/16/25 Glucose 97 mg/dL (70-99) 05/16/25 08:45 05/16/25 TSH 1.03 uIU/mL (0.358-3.74) 03/26/15 10:32 COAG HCG, Quant < 1 mIU/mL (<9 non-preg) 12/11/14 00:10 Urine Test Negative Negative 04/29/24 06:10 04/29/24 Pre-Assessment Diagnosis/Proposed Procedure Planned Operative Procedure(s): COLONOSCOPY Anesthesia History 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, [place] 05/22/25 12:55 Any Problems With Anesthesia No 05/22/25 12:55 Cholinesterase deficiency No 05/22/25 12:55 You/Your Family Experience No 05/22/25 12:55 fever (hyperthermia) with Relationship Recent Exposure to Contagious No 05/24/25 10:06 Disease Does patient have nerve No 05/22/25 12:55 stimulator Patient instructed to have device shut off --Does patient have Pacemaker or ICD? When Was Last Pacemaker Check QUESTION #4 FULL TEXT: You/Your Family Experience fever (hyperthermia) with Anesthesia Last Oral Intake Last Oral intake: Last Oral Intake NPO since 00:00 05/24/25 10:06 Meds taken in AM with sips of water? Meds patient instructed to take am of surgery PONV PONV - senior net application developer: PONV - senior net application developer Female Yes 05/22/25 12:55 HX of Motion Sickness No 05/22/25 12:55 HX of N/V After Surgery No 05/22/25 12:55 Non-Smoker No 05/22/25 12:55 Duration of Surgery greater No 05/22/25 12:55 than 60 minutes Number of Risk Factors 1 05/22/25 12:55 PONV Score Low Risk 05/22/25 12:55 Height & Weight Height & Weight: Anesthesia: Height & Weight Height 5 ft 7 in 05/24/25 10:06 Weight: 111 kg 05/24/25 10:06 Body Mass Index (BMI) 38.3 05/24/25 10:06 Respiratory Assessment Respiratory Assessment - senior net application developer: Respiratory Tract Infection Hx - senior net application developer Hx Respiratory Tract Infection No 05/22/25 12:55 STOP Sleep Apnea STOP Sleep Apnea - senior net application developer: STOP Sleep Apnea - senior net application developer Hx Hypertension No 05/22/25 12:55 Hx Sleep Apnea No 05/22/25 12:55 CPAP BIPAP Do you snore loudly (louder No 05/22/25 12:55 than talking or can be heard Do you often feel tired/ No 05/22/25 12:55 fatigued/ sleepy during daytime? Has anyone observed you stop No 05/22/25 12:55 breathing during sleep? STOP Results Negative 05/22/25 12:55 QUESTION #5 FULL TEXT : Do you snore loudly (louder than talking or can be heard through closed doors)? 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 Specify any problems Hx of Preganancy in last 3 No 05/22/25 12:55 Months Nurse Filling Out Transfusion [email or web address] 05/22/25 12:55 & Questions: Date: 05/22/25 05/22/25 12:55 Time: 12:57 05/22/25 12:55 Patient unable to answer at this time (ie. confused, unrespo /Reproduction History /Reproductive History - senior net application developer: /Reproductive Hx- senior net application developer Hx Now Gestational Age (in weeks): EDC: Hx Hx Para Hx Section SAB No 05/22/25 12:55 Active Medications Active Medications: Current Medications Generic Name Dose Route Start Last Admin Trade Name Freq PRN Reason Stop Dose Admin Lactated Ringer's 1,000 mls @ 15 mls/hr 05/24/25 10:00 IV .Q48H RONI PFSH Medical History History of steroid therapy Dietary restriction Gastric reflux Anxiety Alcohol use Arthritis Easy bruising Back pain Shortness of breath on exertion Numbness Wears glasses Loose, teeth Bipolar disorder Hidradenitis suppurativa DVT (deep venous thrombosis) Restless legs Migraine headache Smoker Home Medications ?Medication ?Instructions ?Recorded ?Last Taken ?Type naproxen 500 mg tablet 500 mg PO Q12H PRN pain 12/2505/09/25 History tizanidine 4 mg tablet 4 mg PO Q8H PRN 05/10/25 History trazodone 50 mg tablet 25 - 50 mg PO QHS PRN PRN in somnia 05/10/25 05/09/25 History venlafaxine 37.5 mg 37.5 mg PO DAILY 05/10/25 History capsule,extended release 24 hr amoxicillin 875 mg-potassium 1 tab PO BID 14 days #28 tabs 05/12/25 05/21/25 Rx clavulanate 125 mg tablet nystatin 100,000 unit/mL oral 1 ml PO .QID 7 weeks #20 0 mL 05/12/25 05/22/25 Rx suspension sucralfate 1 gram tablet 1 g PO Q6H 14 days #56 tabs 05/12/25 05/22/25 Rx vonoprazan 20 mg (28)-amoxicillin See Rx Instructions PO PER PKG DIR 05/18/25 05/23/25 Rx 500 mg (84) oral combo pack #112 pkgs (Voquezna Dual Harley) acetaminophen 500 mg tablet 1,000 mg PO Q8 PRN pain Unknown History bisacodyl 5 mg tablet,delayed 20 mg (4 x 5 mg) PO ONCE #4 tabs 05/22/25 Unknown Rx release polyethylene glycol 3350 17 238 g PO ONCE #238 grams 0 05/22/25 05/23/25 Rx gram/dose oral powder Allergy/AdvReac Type Severity Reaction Status Date / Time No Known Allergies Allergy Verified 05/24/25 10:03 Surgical History History of discectomy History of dilatation and curettage Social History household members: none housing: house Smoking Status: Current every day smoker tobacco type: cigarettes substance use type: does not use Review of Systems (Anesthesia) ROS Narrative System reviewed and no additional complaints, except as documented.
--- NOTE | 2025-05-24 10:18 | PCM.HP.STD ---
HPI - General General Date of Admission: 05/24/25 Date of Service: 05/24/25 Chief Complaint: Constipation and abdominal pain HPI Narrative TOMEKA MARINELLI, is a 40 F who presentsChief Complaint: abd pain [facility] admission 05.10.25-05.12.25 after presentation to the ED with abd pain x2 days, nausea and fever. CBC with elevated WBC count 19.4, hgb 14. an platelets 260. CMP negative. UA negative.CT showing mild inflammatory changes of several loop of distal ileum which may be consistent with IBD. Admitted for further work up and management. GI consulted and underwent endoscopy. Colonoscopy 05.11.25 Preparation of the colon was poor. - Diverticulosis in the recto-sigmoid colon and in the sigmoid colon. - Stool in the entire examined colon. Fluid aspiration performed. - Congested mucosa in the cecum. Biopsied. EGD 05.11.25 Esophageal plaques were found, consistent with candidiasis. - Non-bleeding gastric ulcers with no stigmata of bleeding. Biopsied. - No gross lesions in the entire examined duodenum. OV 05.16.25 patient continues to have diffuse abdominal pain. She is also having epigastric pain. Patient does not feel any of her symptoms have gotten better since her hospital admission. She has not had a bowel movement since being in the hospital. She has tried Dulcolax and an enema with no relief. She has not had any more fevers. [facility] Medical History History of steroid therapy Dietary restriction Gastric reflux Anxiety Alcohol use Arthritis Easy bruising Back pain Shortness of breath on exertion Numbness Wears glasses Loose, teeth Bipolar disorder Hidradenitis suppurativa DVT (deep venous thrombosis) Restless legs Migraine headache Smoker Home Medications ?Medication ?Instructions ?Recorded ?Last Taken ?Type naproxen 500 mg tablet 500 mg PO Q12H PRN pain 05/07/23 05/09/25 History tizanidine 4 mg tablet 4 mg PO Q8H PRN 05/10/25 05/22/25 History trazodone 50 mg tablet 25 - 50 mg PO QHS PRN PRN insomnia 05/10/25 05/09/25 History venlafaxine 37.5 mg 37.5 mg PO DAILY 05/10/25 05/22/25 History capsule,extended release 24 hr amoxicillin 875 mg-potassium 1 tab PO BID 14 days #28 tabs 05/12/25 05/21/25 Rx clavulanate 125 mg tablet nystatin 100,000 unit/mL oral 1 ml PO .QID 7 weeks #200 mL 05/12/25 05/22/25 Rx suspension sucralfate 1 gram tablet 1 g PO Q6H 14 days #56 tabs 05/12/25 05/22/25 Rx vonoprazan 20 mg (28)-amoxicillin See Rx Instructions PO PER PKG DIR 05/18/25 05/23/25 Rx 500 mg (84) oral combo pack #112 pkgs (Voquezna Dual Harley) acetaminophen 500 mg tablet 1,000 mg PO Q8 PRN pain 05/22/25 Unknown History bisacodyl 5 mg tablet,delayed 20 mg (4 x 5 mg) PO ONCE #4 tabs 05/22/25 Unknown Rx release polyethylene glycol 3350 17 238 g PO ONCE #238 grams 05/22/25 05/23/25 Rx gram/dose oral powder Allergy/AdvReac Type Severity Reaction Status Date / Time No Known Allergies Allergy Verified 05/24/25 10:03 Surgical History History of discectomy History of dilatation and curettage Social History household members: none housing: house Smoking Status: Current every day smoker tobacco type: cigarettes substance use type: does not use ROS Constitutional Constitutional: Denies fatigue, fever(s), poor appetite, weight gain or weight loss Gastrointestinal Gastrointestinal: Denies belching, bloating, change in bowel habits, change in stool character, chewing difficulty, coffee ground emesis, constipation, cramping, diarrhea, dyspepsia, dysphagia, early satiety, excessive flatus, fecal incontinence, heartburn, hematemesis, hematochezia, hemorrhoids, loose stools, melena, nausea, odynophagia, rectal bleeding, tenesmus, vomiting or weight changes Vital Signs Vital Signs Vital Signs: 05/24/25 10:06 05/24/25 10:06 Temperature 97.0 F L Temperature Source Temporal Pulse Rate 76 Respiratory Rate 14 Respiratory Pattern Normal Blood Pressure 141/81 H Blood Pressure Mean 101 Blood Pressure Source Monitor Blood Pressure Position Semi-Fowlers Blood Pressure Location Right Arm Pulse Ox 100 Oxygen Delivery Method Room Air Weight Weight: 244 lb 11.41 oz Body Mass Index (BMI) 38.3 Physical Exam Const alert, oriented x3, no apparent distress and healthy appearing General Appearance: cooperative GI normal to inspection, nondistended, normoactive bowel sounds, soft to palpation, non-tender and non-distended Percussion: normal to percussion Rectal Exam: deferred Assessment & Plan Assessment/Plan (1) Ileitis: (2) Constipation: PLAN: Assessment and Plan Assessment and Plan (1) Inflammatory bowel disease: Status: Acute Plan: Tomeka is a 40-year-old female patient here today for hospital follow-up. Patient presented to [facility] emergency department with diffuse abdominal pain, high fevers and nausea. Workup revealing an elevated white blood cell count. She underwent CT abdomen pelvis which was concerning for inflammatory bowel disease. Colonoscopy was with poor prep and Dr. Foley was unable to see her mucosa or take biopsies. EGD showing esophageal candidiasis and a gastric ulcer. IBD serology not yet resulted. Stool testing was negative for infectious causes. Will order repeat CBC and CMP. Calprotectin ordered. Patient will be scheduled for repeat colonoscopy. Patient has not had a bowel movement since discharge. She is on sucralfate which may be leading to constipation. I have provided samples of Linzess 290 mcg. She will continue course of Augmentin. - Repeat colonoscopy - Repeat CBC and CMP - Calprotectin - Repeat EGD in 3 months - Follow-up after colonoscopy (2) Ileitis: Status: Acute (3) Abdominal pain: Status: Acute Orders: Orders CBC W/Diff, Automated Today K52.9 - Noninfective gastroenteritis and colitis, unspecified, R10.9 - Unspecified abdominal pain Comprehensive Metabolic Profil Today K52.9 - Noninfective gastroenteritis and colitis, unspecified, R10.9 - Unspecified abdominal pain Calprotectin, Stool Today K52.9 - Noninfective gastroenteritis and colitis, unspecified, R10.9 - Unspecified abdominal pain
[2025-05-24 10:22] LABS: Internal QC Validated? YES +Cl - CLEAR BKGD; Pregnancy, Urine Negative Negative; Record Kit Lot#,Urine Preg 962302
[2025-05-24] MEDS: Lactated Ringers 1,000 ML 15 ML IV (10:42)
--- NOTE | 2025-05-24 10:45 | COLBX_PTH ---
PATIENT: CHARLIE MARINELLI LOC: EN U#:[id number] AGE/SX: 40/F ROOM: RE05/24/[address]: Dr. Chirag Foley DO : 1985 BED: DIS: 05/24/2025 SPEC #: [id number] RECD: 05/24/25 12:35 STATUS: JHONNY REPrakash #: [id number] FLAVIA: 05/24/25 10:[address]: Chirag Foley DEPT: SURGICAL PATHOLOGY RECD BY: David Gupta ENTERED: 05/24/25 14:15 SP TYPE: COLON BX GUNJAN DR: Dr. Ty Rocha MD Tissues: A - Ileum, NOS B - Sigmoid colon biopsy Procedures: Surgery Specimen Level IV HEADER OPERATION: Colonoscopy and biopsy and polypectomy PRE-OP DIAGNOSIS: Constipation, abdominal pain TISSUE SUBMITTED: A- Terminal ileum biopsy, B- Sigmoid polyp MICROSCOPIC DIAGNOSIS A. Small intestine, terminal ileum, biopsies: - Benign without active inflammation or architectural distortion B. Large intestine, sigmoid polyp: * Benign colonic mucosa with histopathological features suggesting a possible inflammatory polyp MICROSCOPIC DESCRIPTION Slides are reviewed. GROSS DESCRIPTION A. Received in fixative is one container labeled with the patient's name and designated Terminal ileum biopsy. The specimen consists of three irregular fragments of light keller tissue, each measuring 0.4 cm. The specimen is totally submitted in one cassette. B. Received in fixative is one container labeled with the patient's name and designated Sigmoid polyp. The specimen consists of one irregular fragment of light keller tissue that measures 0.3 cm. The specimen is totally submitted in one cassette. [facility] 05/24/2025 CPT:00705n6
--- NOTE | 2025-05-24 11:45 | OP.COLON_ITS ---
Patient Name: Tomeka Arguelles Procedure Date: 05/24/2025 11:09 AM Date of : 1985 Age: 40 Procedure: Colonoscopy Indications: Screening for colorectal malignant neoplasm Providers: DO Carrie Rao MD: Ty Rocha Medicines: Monitored Anesthesia Care Patient Profile: This is a 40 year old female. This is a 40 year old female. Refer to note in patient chart for documentation of history and physical. Last Colonoscopy: within the past year. Complications: No immediate complications. Procedure: Pre-Anesthesia Assessment: - Prior to the procedure, a History and Physical was performed, and patient medications and allergies were reviewed. The patient is competent. The risks and benefits of the procedure and the sedation options and risks were discussed with the patient. All questions were answered and informed consent was obtained. Patient identification and proposed procedure were verified by the physician in the pre-procedure area. Mental Status Examination: alert and oriented. Airway Examination: normal oropharyngeal airway and neck mobility. Respiratory Examination: clear to auscultation. CV Examination: normal. ASA Grade Assessment: II - A patient with mild systemic disease. After reviewing the risks and benefits, the patient was deemed in satisfactory condition to undergo the procedure. The anesthesia plan was to use monitored anesthesia care (MAC). Immediately prior to administration of medications, the patient was re-assessed for adequacy to receive sedatives. The heart rate, respiratory rate, oxygen saturations, blood pressure, adequacy of pulmonary ventilation, and response to care were monitored throughout the procedure. The physical status of the patient was re-assessed after the procedure. After I obtained informed consent, the scope was passed under direct vision. Throughout the procedure, the patient's blood pressure, pulse, and oxygen saturations were monitored continuously. The pediatric colonoscope was introduced through the anus and advanced to the terminal ileum. The colonoscopy was performed without difficulty. The patient tolerated the procedure well. The quality of the bowel preparation was adequate. The ileocecal valve, appendiceal orifice, and rectum were photographed. Scope In: 11:20:15 AM Scope Withdrawal Time 0 hours 8 minutes 39 seconds Scope Out: 11:31:53 AM Total Procedure Duration Time 0 hours 11 minutes 38 seconds Findings: The perianal and digital rectal examinations were normal. A 3 mm polyp was found in the sigmoid colon. The polyp was sessile. The polyp was removed with a jumbo cold forceps. Resection and retrieval were complete. Verification of patient identification for the specimen was done. The terminal ileum appeared normal. Biopsies were taken with a cold forceps for histology. Verification of patient identification for the specimen was done. Estimated blood loss was minimal. Impression: - One 3 mm polyp in the sigmoid colon, removed with a jumbo cold forceps. Resected and retrieved. - The examined portion of the ileum was normal. Biopsied. Recommendation: - Discharge patient to home. - Resume previous diet. - Continue present medications. - Await pathology results. - Repeat colonoscopy in 5 years for surveillance. Procedure Code(s): --- Professional --- 06887, Colonoscopy, flexible; with biopsy, single or multiple CPT copyright 2021 [employer]. All rights reserved. The codes documented in this report are preliminary and upon track broom operator review may be revised to meet current compliance requirements. Chirag Foley DO 05/24/2025 11:45:30 AM This report has been signed electronically. Number of Addenda: 0 Note Initiated On: 05/24/2025 11:09 AM
--- NOTE | 2025-05-24 11:45 | OP.PROVAT_ITS ---
05/24/2025 Ty Rocha [id number] [place] [address] Re : Colonoscopy procedure for Tomeka Arguelles Dear Dr. Rocha This procedure was performed on Saturday, May 24, 2025. My impressions and recommendations are as follows: Impressions : - One 3 mm polyp in the sigmoid colon, removed with a jumbo cold forceps. Resected and retrieved. - The examined portion of the ileum was normal. Biopsied. Recommendations : - Discharge patient to home. - Resume previous diet. - Continue present medications. - Await pathology results. - Repeat colonoscopy in 5 years for surveillance. My findings are described in the full procedure note, which is enclosed. If I can be of further assistance, please feel free to contact me at . Sincerely, Chirag Foley, 05/24/2025 11:45:30 AM This report has been signed electronically.
--- NOTE | 2025-05-24 11:45 | PCM.POST.ANE ---
Anesthesia: Postop Eval I Current Vital Signs Temperature: 97.6 F Pulse Rate: 68 Blood Pressure: 112/61 Respiratory Rate: 16 Pulse Ox: 99 Oxygen Delivery Method: Room Air Assessment Airway patent: Yes Spontaneous unlabored respirations: Yes Mental status: Asleep nausea: No Vomiting: No Anesthesia Complication: No Fluid Hydration Crystalloid volume administer (ml): 500 Total IV fluid infused: 500 Progress Note Anesthesia document: Postop Eval 1 completed: Yes
--- NOTE | 2025-05-24 15:56 | PCM.POSTANE2 ---
Anesthesia Postop Eval I Sum Postop Eval Completion status Anesthesia document: Postop Eval 1 completed: Yes Anesthesia Postop Eval I Summary Anesthesia Postop Eval I Summary: Anesthesia Postop Eval I: Assessment Summary Airway patent Yes 05/24/25 11:46 [email or web address] Spontaneous unlabored Yes 05/24/25 11:46 [email or web address] respirations Mental status Asleep 05/24/25 11:46 [email or web address] nausea No 05/24/25 11:46 [email or web address] Vomiting No 05/24/25 11:46 [email or web address] Anesthesia Postop Eval I: Fluid Summary Crystalloid volume administer 500 05/24/25 11:46 [email or web address] (ml) Colloids volume administered ( ml) Blood Product volume administered (ml) Total IV fluid infused 500 05/24/25 11:46 [email or web address] Anesthesia Postop Eval I: Summary Notes Anesthesia Complication No 05/24/25 11:46 [email or web address] Anesthesia Complication Comment: Post-operative progress note Anesthesia: Postop Eval II Evaluation Mental status: Awake and Calm Pain Level: 0 nausea: No Vomiting: No Complications Anesthesia Complication: No
== END 2025-05-24 12:19 | disposition home or self-care (01) ==
LOC: EN 09:43 → AC 09:46
PROVIDERS: PCP Internal Medicine; Referring Provider Internal Medicine; Visit Provider Internal Medicine Gastroenterology
PROC: 0DJD8ZZ Inspection of Lower Intestinal Tract, Via Natural or Artificial Opening Endoscopic (ICD-10-PCS; CPT 45378; principal; 2025-05-24 10:40)
DX: R10.9 Unspecified abdominal pain (principal); K63.5 Polyp of colon; F17.210 Nicotine dependence, cigarettes, uncomplicated; K25.9 Gastric ulcer, unspecified as acute or chronic, without hemorrhage or perforation; F41.9 Anxiety disorder, unspecified; Z79.899 Other long term (current) drug therapy; K52.9 Noninfective gastroenteritis and colitis, unspecified; K59.00 Constipation, unspecified
CPT/HCPCS: 45380; 81025; 88305; J2405